=== PATIENT | male | born 1955 | race Caucasian/White ===

== ENCOUNTER 2016-09-02 12:07 | Emergency (ER) | payer SELFPAY ==
--- NOTE | 2016-09-02 12:19 | ER Document Report ---
ED Medical Screen (RME) - General Stated Complaint: ABNORMAL LABS Notes: Patient states he was seen at [facility] on Thursday for a fever. Had lab work drawn yesterday, was called this morning and told to come to the emergency room. Patient denies knowing what labs were. Denies other symptoms than the fever. Fever is gone now, patient has no complaints. I have greeted and performed a rapid initial assessment of this patient. A comprehensive ED assessment and evaluation of the patient, analysis of test results and completion of the medical decision making process will be conducted by additional ED providers. - Related Data Allergies/Adverse Reactions: No Known Allergies Allergy (Unverified 09/02/16 12:17) Physical Exam - Vital signs Vitals: Temp Pulse Resp BP Pulse Ox 98.7 F 79 16 126/77 H 97 09/02/16 12:11 09/02/16 12:11 09/02/16 12:11 09/02/16 12:11 09/02/16 12:11 - Cardiovascular Rhythm: Regular Heart sounds: Normal auscultation Course - Vital Signs Vital signs: Temp Pulse Resp BP Pulse Ox 98.7 F 79 16 126/77 H 97 09/02/16 12:11 09/02/16 12:11 09/02/16 12:11 09/02/16 12:11 09/02/16 12:11
--- NOTE | 2016-09-02 12:52 | ER Document Report ---
HPI - HPI Patient complains to provider of: abnormal lab work Onset: Other - Thursday Pain Level: 0 Context: 61-year-old male sent by [facility] because of lab work that was drawn at the office yesterday. He received a call but said they couldn't take care of him there because of abnormal lab work but they did not share the results with him. We will will call [facility] to find out what this is concerning. The patient's chief complaint is intermittent fever since Thursday the . He has a history of smoking and hemorrhoids. No surgeries. Review of systems is completely negative except for temperature of 101 yesterday. No travel outside the [place]. No known tick bite. Daily 10 beers for 5 years. Associated Symptoms: None Exacerbated by: Denies Relieved by: Denies Similar symptoms previously: No Recently seen / treated by doctor: Yes - ROS ROS below otherwise negative: Yes Systems Reviewed and Negative: Yes All other systems reviewed and negative - DERM Skin Color: Normal Past Medical History - General Information source: Patient - Social History Smoking Status: Current Every Day Smoker Chew tobacco use (# tins/day): No Frequency of alcohol use: Heavy Drug Abuse: None Lives with: Family Family History: Reviewed & Not Pertinent Patient has suicidal ideation: No Patient has homicidal ideation: No Renal/ Medical History: Denies: Hx Peritoneal Dialysis GI Medical History: Reports: Other - hemorrhoids Surgical Hx: Negative Vertical Provider Document - CONSTITUTIONAL Agree With Documented VS: Yes Exam Limitations: No Limitations - INFECTION CONTROL TRAVEL OUTSIDE OF THE [place] IN LAST 30 DAYS: No - HEENT HEENT: Atraumatic, Normocephalic, Pharyngeal Erythema. negative: Conjuctival Injection - NECK Neck: Supple - RESPIRATORY Respiratory: Breath Sounds Normal, No Respiratory Distress O2 Sat by Pulse Oximetry: 97 - CARDIOVASCULAR Cardiovascular: Regular Rate, Regular Rhythm - GI/ABDOMEN Gastrointestinal: Abdomen Soft, Abdomen Non-Tender, No Organomegaly - BACK Back: Normal Inspection - MUSCULOSKELETAL/EXTREMETIES Musculoskeletal/Extremeties: YANNICK MITCHELL - NEURO Level of Consciousness: Awake, Alert - DERM Integumentary: Warm, Dry Course - Re-evaluation Re-evalutation: 09/02/16 13:16 Labs sent from [facility] with a white count of 74.6 and the lab already called for 75,000 white count here in the emergency department as well. Pending lab results and I told the patient about this getting a chest x-ray and will refer to a oncologist. 09/02/16 13:51 no mediastinal mass 09/02/16 14:[address] 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 If you do not receive a survey, then you can go to the [facility] website, [email or web address] and place your comments about your very good care. Thank you very much. It was a pleasure being your medical provider today. Prescriptions: Levofloxacin [Levaquin 500 mg Tablet] 500 mg PO DAILY #9 tablet Referrals: GUY CHING MD [ACTIVE STAFF] - 09/03/16 10:00 am
[2016-09-02 12:59] LABS: APPEARANCE,URINE SLIGHTLY-CLOUDY; BILIRUBIN,URINE NEGATIVE (NEGATIVE); GLUCOSE, URINE NEGATIVE (NEGATIVE); KETONES,URINE NEGATIVE (NEGATIVE); LEUKOCYTE ESTERASE,URINE NEGATIVE (NEGATIVE); NITRITE,URINE NEGATIVE (NEGATIVE); PROTEIN,URINE 30 mg/dL (NEGATIVE); URINE SPECIFIC GRAVITY 1.013; UROBILINOGEN,URINE NEGATIVE mg/dL (<2.0)
[2016-09-02 13:06] LABS: HEMATOCRIT 34.9 % (37.9-51.0); HEMOGLOBIN 11.2 g/dL (13.5-17.0); HGB HCT DIFFERENCE -1.3; MEAN CORPUSCULAR HEMOGLOBIN 27.3 pg (27.0-33.4); MEAN CORPUSCULAR VOLUME 85 fl (80-97); RED CELL DISTRIBUTION WIDTH 14.3 % (11.5-14.0)
[2016-09-02 13:17] LABS: ALANINE AMINOTRANSFERASE 42 U/L (21-72); ALBUMIN 3.6 g/dL (3.5-5.0); ALKALINE PHOSPHATASE 63 U/L (38-126); ANION GAP 12 (5-19); ASPARTATE AMINO TRANSFERASE 29 U/L (17-59); BILIRUBIN,DIRECT 0.2 mg/dL (0.0-0.4); BILIRUBIN,TOTAL 0.7 mg/dL (0.2-1.3); BLOOD UREA NITROGEN 32 mg/dL (7-20); CALCIUM 9.2 mg/dL (8.4-10.2); CARBON DIOXIDE 27 mmol/L (22-30); CHLORIDE 98 mmol/L (98-107); CREATININE RESULT 1.79 mg/dL (0.52-1.25); GLUCOSE 111 mg/dL (75-110); LIPASE 272.5 U/L (23-300); POTASSIUM 4.3 mmol/L (3.6-5.0); SODIUM 137.3 mmol/L (137-145); TOTAL PROTEIN 6.2 g/dL (6.3-8.2)
[2016-09-02 13:24] LABS: WHITE BLOOD COUNT 78.3 10^3/uL (4.0-10.5)
[2016-09-02 13:26] LABS: BASOPHILS % (MANUAL) 0 % (0-2); EOSINOPHILS % (MANUAL) 0 % (0-6); LYMPHOCYTES % (MANUAL) 87 % (13-45); TOTAL CELLS COUNTED 100
[2016-09-02 13:33] LABS: HYPOCHROMASIA SLIGHT; SMUDGE CELLS PRESENT
[2016-09-02] MEDS ORDERED: LEVOFLOXACIN 500 MG TABLET PO ONE (14:08)
[2016-09-02 14:17] VITALS: BP 124/86
== END 2016-09-02 14:33 | disposition home or self-care (01) ==
LOC: ER 12:07
DX: C95.10 Chronic leukemia of unspecified cell type not having achieved remission (principal); R50.9 Fever, unspecified; F17.200 Nicotine dependence, unspecified, uncomplicated
CPT/HCPCS: 36415; 71020; 80053; 81001; 83690; 85025; 99283

== ENCOUNTER → 2016-09-16 | Outpatient (CLI) | payer SELFPAY | LOC: RAD 12:24 | PROVIDERS: ATTEND Internal Medicine Medical Oncology | DX: D72.828 Other elevated white blood cell count (principal); R79.89 Other specified abnormal findings of blood chemistry; R16.1 Splenomegaly, not elsewhere classified | CPT/HCPCS: 71260; 74160 ==

== ENCOUNTER 2018-05-29 13:00 | Emergency (ER) | payer SELFPAY ==
--- NOTE | 2018-05-29 13:13 | ER Document Report ---
ED Medical Screen (RME) - General Chief Complaint: Skin Problem Stated Complaint: ABSCESS/LEFT ARM PIT Time Seen by Provider: 05/29/18 13:10 Mode of Arrival: Ambulatory Information source: Patient TRAVEL OUTSIDE OF THE [place] IN LAST 30 DAYS: No - HPI Patient complains to provider of: chest mass Onset: Other - pt with c/o chest mass that has been increasing in size for the past few months. Also, intermittent abd pain - Related Data Allergies/Adverse Reactions: No Known Allergies Allergy (Verified 05/29/18 13:01) Past Medical History Renal/ Medical History: Denies: Hx Peritoneal Dialysis Physical Exam - Vital signs Vitals: Temp Pulse Resp BP Pulse Ox 98.7 F 101 H 16 148/88 H 97 05/29/18 13:03 05/29/18 13:03 05/29/18 13:03 05/29/18 13:03 05/29/18 13:03 Course - Vital Signs Vital signs: Temp Pulse Resp BP Pulse Ox 98.7 F 101 H 16 148/88 H 97 05/29/18 13:03 05/29/18 13:03 05/29/18 13:03 05/29/18 13:03 05/29/18 13:03 Doctor's Discharge - Discharge Referrals: GUY CHING MD [Primary Care Provider] - Follow up as needed
[2018-05-29 14:04] LABS: ABSOLUTE LYMPHOCYTES (AUTO) 1.3 10^3/uL (0.5-4.7); ABSOLUTE MONOCYTES (AUTO) 0.6 10^3/uL (0.1-1.4); ABSOLUTE NEUT (AUTO) 7.2 10^3/uL (1.7-8.2); APPEARANCE,URINE CLEAR; BASOPHILS % (AUTO) 0.5 % (0-2); BILIRUBIN,URINE NEGATIVE (NEGATIVE); COLOR,URINE AMBER; EOSINOPHILS % (AUTO) 0.2 % (0-6); GLUCOSE, URINE NEGATIVE (NEGATIVE); HEMATOCRIT 36.5 % (37.9-51.0); HEMOGLOBIN 12.2 g/dL (13.5-17.0); KETONES,URINE NEGATIVE (NEGATIVE); LEUKOCYTE ESTERASE,URINE NEGATIVE (NEGATIVE); LYMPHOCYTES % (AUTO) 14.4 % (13-45); MEAN CORPUSCULAR HEMOGLOBIN 27.2 pg (27.0-33.4); MEAN CORPUSCULAR HGB CONC 33.6 g/dL (32.0-36.0); MEAN CORPUSCULAR VOLUME 81 fl (80-97); MONOCYTES % (AUTO) 6.4 % (3-13); NITRITE,URINE NEGATIVE (NEGATIVE); PLATELET COUNT 210 10^3/uL (150-450); PROTEIN,URINE 30 mg/dL (NEGATIVE); RED BLOOD COUNT 4.51 10^6/uL (4.35-5.55); RED CELL DISTRIBUTION WIDTH 13.9 % (11.5-14.0); SEGMENTED NEUTROPHILS % (AUTO) 78.5 % (42-78); TOTAL CELLS COUNTED % (AUTO) 100 %; WHITE BLOOD COUNT 9.2 10^3/uL (4.0-10.5)
[2018-05-29 14:17] LABS: ALANINE AMINOTRANSFERASE 145 U/L (21-72); ALBUMIN 3.8 g/dL (3.5-5.0); ALKALINE PHOSPHATASE 324 U/L (38-126); ANION GAP 9 (5-19); ASPARTATE AMINO TRANSFERASE 157 U/L (17-59); BILIRUBIN,DIRECT 0.5 mg/dL (0.0-0.4); BILIRUBIN,TOTAL 0.7 mg/dL (0.2-1.3); BLOOD UREA NITROGEN 21 mg/dL (7-20); CALCIUM 9.5 mg/dL (8.4-10.2); CARBON DIOXIDE 28 mmol/L (22-30); CHLORIDE 97 mmol/L (98-107); GLUCOSE 111 mg/dL (75-110); POTASSIUM 4.7 mmol/L (3.6-5.0); SODIUM 134.2 mmol/L (137-145); TOTAL PROTEIN 6.3 g/dL (6.3-8.2)
--- NOTE | 2018-05-29 15:33 | RADIOLOGY REPORT (SQ) ---
EXAM DESCRIPTION: CT CHEST WITH; CT ABD/PELVIS WITH IV ONLY COMPLETED DATE/TIME: 05/29/2018 3:18 pm REASON FOR STUDY: chest mass; epigastric pain COMPARISON: 12/15/2019 CONTRAST TYPE AND DOSE: contrast/concentration: Isovue 350.00 mg/ml; Total Contrast Delivered: 70.0 ml; Total Saline Delivered: 56.0 ml RENAL FUNCTION: GFR > 60. TECHNIQUE: CT scan of the chest performed using helical scanning technique with dynamic intravenous contrast injection. Images reviewed with lung, soft tissue and bone windows. Reconstructed coronal a nd sagittal MPR images reviewed. All images stored on PACS. CT scan of the abdomen and pelvis performed with intravenous and without oral contrastusing helical s rebekah technique with dynamic intravenous contrast injection. Images reviewed with lung, soft tissu e and bone windows. Reconstructed coronal and sagittal MPR images reviewed. Delayed images for eval uation of the urinary system also acquired and evaluated. All images stored on PACS. All CT scanners at this facility use dose modulation, iterative reconstruction, and/or weight based d osing when appropriate to reduce radiation dose to as low as reasonably achievable (ALARA). [facility]: Dose Right [facility]: CareDose [facility]: Dose Right [facility]: Teradose 4D [facility]: Smart Technologies RADIATION DOSE: CT Rad equipment meets quality standard of care and radiation dose reduction techniq ues were employed. CTDIvol: 5.4 - 6.4 mGy. DLP: 744 mGy-cm. . LIMITATIONS: None. FINDINGS: CHEST: LUNGS AND PLEURA: Numerous scattered pulmonary nodules throughout the bilateral lung villareal consisten t with metastatic disease. No pleural effusion. HILAR AND MEDIASTINAL STRUCTURES: Small mediastinal nodes. HEART AND VASCULAR STRUCTURES: Normal heart. No evidence of aortic aneurysm or dissection. Pulmonar y arteries poorly assessed. HARDWARE: None. THYROID AND OTHER SOFT TISSUES: Thyroid unremarkable. Extensive mass along the upper left chest wall involving the axilla and extending supraclavicular and infraclavicular. Largest discrete portion of the mass is 11 cm with numerous adjacent probable enlarged lymph nodes regionally. Marked deformity of the chest wall results. 1.4 cm short axis right axillary lymph node. BONES: No significant finding. OTHER: No other significant finding. ABDOMEN AND PELVIS: LIVER: Numerous low density masses throughout the liver with confluent low density throughout the lat eral segment left lobe. Consistent with widespread liver metastatic disease. Spleen enlarged, 15 cm craniocaudal without focal mass. SPLEEN: As above. PANCREAS: No masses. No significant calcifications. No adjacent inflammation or peripancreatic fluid collections. Pancreatic duct not dilated. GALLBLADDER: No identified stones by CT criteria. No inflammatory changes to suggest cholecystitis. ADRENAL GLANDS: No significant masses or asymmetry. RIGHT KIDNEY AND URETER: No solid masses. No significant calcification. No hydronephrosis or hydroure ter. LEFT KIDNEY AND URETER: No solid masses. No significant calcification. No hydronephrosis or hydrouret er. AORTA AND VESSELS: No aneurysm. No dissection. Renal arteries, SMA, celiac without stenosis. RETROPERITONEUM: Retroperitoneal adenopathy with nodes measuring up to 2 cm in short axis at least. BOWEL AND PERITONEAL CAVITY: No overt bowel pathology. Small mesenteric nodes. Trace ascites in the pelvis. APPENDIX: Normal. ABDOMINAL WALL: No masses. No hernias. PELVIS: Prostate enlargement. Bladder unremarkable. BONES: No worrisome lesions detected. OTHER: No other significant finding. IMPRESSION: 1. Bulky abnormal soft tissue in the left upper chest wall and axilla with regional ext ension as above. Consistent with malignancy. 2. Numerous pulmonary nodules consistent with metastat ic disease. 3. Numerous liver lesions are consistent with metastases. 4. Retroperitoneal adenopath y. 5. Other findings as above. TECHNICAL DOCUMENTATION: JOB ID: [id number] Quality ID # [id number]: Final reports with documentation of one or more dose reduction techniques (e.g., Au tomated exposure control, adjustment of the mA and/or kV according to patient size, use of iterative reconstruction technique) 2010 [employer]- All Rights Reserved Reading location - IP/workstation name: [email or web address]
--- NOTE | 2018-05-29 18:08 | ER Document Report ---
ED General - General Chief Complaint: Skin Problem Stated Complaint: ABSCESS/LEFT ARM PIT Time Seen by Provider: 05/29/18 13:10 Mode of Arrival: Ambulatory TRAVEL OUTSIDE OF THE [place] IN LAST 30 DAYS: No - HPI Patient complains to provider of: Epigastric abdominal pain left chest wall mass Notes: Patient coming in for evaluation of epigastric dental pain ongoing for the last few days. Patient states he does have history of smoking and drinking alcohol however is to not drink any alcohol in quite a few months. Patient denies any nausea vomiting fevers chills or any diarrhea. Patient also has a large obvious left chest wall mass. Patient states been present for approximately 3 months and continues to grow. 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 Patient otherwise was to be no obvious distress. - Related Data Allergies/Adverse Reactions: No Known Allergies Allergy (Verified 05/29/18 13:16) Past Medical History - General Information source: Patient - Social History Smoking Status: Current Every Day Smoker Chew tobacco use (# tins/day): No Frequency of alcohol use: None Drug Abuse: None Family History: Reviewed & Not Pertinent Patient has suicidal ideation: No Patient has homicidal ideation: No Renal/ Medical History: Denies: Hx Peritoneal Dialysis Review of Systems - Review of Systems Constitutional: No symptoms reported EENT: No symptoms reported Cardiovascular: Other - Chest wall mass Respiratory: No symptoms reported Gastrointestinal: Abdominal pain - Epigastric abdominal pain Genitourinary: No symptoms reported Male Genitourinary: No symptoms reported Musculoskeletal: No symptoms reported Skin: No symptoms reported Hematologic/Lymphatic: No symptoms reported Neurological/Psychological: No symptoms reported Physical Exam - Vital signs Vitals: Temp Pulse Resp BP Pulse Ox 98.7 F 101 H 16 148/88 H 97 05/29/18 13:03 05/29/18 13:03 05/29/18 13:03 05/29/18 13:03 05/29/18 13:03 Interpretation: Normal - General General appearance: Appears well, Alert - HEENT Head: Normocephalic, Atraumatic Eyes: Normal Pupils: PERRL - Respiratory Respiratory status: No respiratory distress Chest status: Other - Patient with a large solid chest wall mass of the left upper chest wall from the left sternal border going into the axilla the mass does have an area that is discolored with some ecchymosis on the most lateral portion the masses not warm no erythema no signs of drainage and is signs of abscess formation obvious lymphadenopathy in left axilla prominence of the vasculature across the chest wall slight swelling of the left arm compared to the right Breath sounds: Normal Chest palpation: Normal - Cardiovascular Rhythm: Regular Heart sounds: Normal auscultation Murmur: No - Abdominal Inspection: Normal Distension: No distension Bowel sounds: Normal Tenderness: Nontender Organomegaly: No organomegaly - Back Back: Normal, Nontender - Extremities General upper extremity: Normal inspection, Nontender, Normal color, Normal ROM , Normal temperature General lower extremity: Normal inspection, Nontender, Normal color, Normal ROM , Normal temperature, Normal weight bearing. No: Fernando's sign - Neurological Neuro grossly intact: Yes Cognition: Normal Orientation: AAOx4 Aditi Coma Scale Eye Opening: Spontaneous [place] Coma Scale Verbal: Oriented [place] Coma Scale Motor: Obeys Commands Aditi Coma Scale Total: 15 Speech: Normal Motor strength normal: LUE, RUE, LLE, RLE Sensory: Normal - Psychological Associated symptoms: Normal affect, Normal mood - Skin Skin Temperature: Warm Skin Moisture: Dry Skin Color: Normal Course - Re-evaluation Re-evalutation: 05/29/18 18:57 Laboratory studies otherwise unremarkable except for slight elevation the patient's LFTs. CAT scans of the chest abdomen show signs of diffuse metastatic disease with a large mass in the left chest wall no signs of abscess formation. Patient does have multiple lesions within the long also multiple lesions within his liver roots would explain the liver function test elevation. Patient CT scans were reviewed at bedside with the patient. I did call the oncologist call or contact centre operator Dr. Wadsworth who agrees with plan for discharge follow-up with social work team to help establish outpatient care. Patient otherwise looks to be in no obvious distress. Patient will be treated with Ultram for pain also omeprazole for epigastric pain is possible underlying gastritis. Patient will be discharged home - Vital Signs Vital signs: Temp Pulse Resp BP Pulse Ox 98.7 F 101 H 16 148/88 H 97 05/29/18 13:03 05/29/18 13:03 05/29/18 13:03 05/29/18 13:03 05/29/18 13:03 - Laboratory Result Diagrams: 05/29/18 13:33 05/29/18 13:33 Laboratory results interpreted by me: 05/29/18 05/29/18 05/29/18 13:33 13:33 13:33 Hgb 12.2 L Hct 36.5 L Seg Neutrophils % 78.5 H Sodium 134.2 L Chloride 97 L BUN 21 H Glucose 111 H Direct Bilirubin 0.5 H AST 157 H ALT 145 H Alkaline Phosphatase 324 H Urine Protein 30 H Urine Urobilinogen 2.0 H Discharge - Discharge Clinical Impression: Chest wall mass, Epigastric abdominal pain Condition: Good Disposition: HOME, SELF-CARE Instructions: Abdominal Pain ([facility]), Gastritis ([facility]), Growth or Mass, Pending Workup ([facility]) Additional Instructions: Please make sure we had good contact information so that we can help you establish follow-up for further evaluation of your left chest wall mass. Please take medications as prescribed. Return to ER symptoms worsen Your CAT scan today shows a mass in the left upper chest wall is concerning for malignancy and that she also have multiple other spots within your liver and spleen are also consistent with possible malignancy. It is very important to follow-up with a doctor provided that she can start the workup to rule in or rule out cancer and also to achieve further treatment. I believe the epigastric abdominal pain that you are experiencing is due to some of the masses that we see on your CAT scan recommend drinking less alcohol and taking omeprazole in case he also have underlying gastritis or inflammation of the stomach. Prescriptions: Omeprazole 20 mg PO DAILY #30 tab. Tramadol HCl [Ultram 50 mg Tablet] 50 mg PO ASDIR PRN #30 tablet PRN Reason: Referrals: CHON YORK MD [ACTIVE STAFF] - Follow up as needed
[2018-05-29] MEDS ORDERED: TRAMADOL HCL 50 MG TABLET PO ONE (18:09)
[2018-05-29 18:56] VITALS: BP 138/83
== END 2018-05-29 18:56 | disposition home or self-care (01) ==
LOC: ER 13:00
DX: R22.2 Localized swelling, mass and lump, trunk (principal); R10.13 Epigastric pain; K08.89 Other specified disorders of teeth and supporting structures; F17.200 Nicotine dependence, unspecified, uncomplicated
CPT/HCPCS: 36415; 71260; 74177; 80053; 81001; 83690; 85025; 99284

== ENCOUNTER 2018-06-07 16:26 | Inpatient (IN) | payer OTHER ==
[2018-06-07] MEDS ORDERED: ASPIRIN 81 MG TABLET, CHEWABLE PO ONE (17:45)
[2018-06-07 18:09] LABS: HEMATOCRIT 38.5 % (37.9-51.0); HEMOGLOBIN 12.8 g/dL (13.5-17.0); MEAN CORPUSCULAR HEMOGLOBIN 27.1 pg (27.0-33.4); MEAN CORPUSCULAR HGB CONC 33.2 g/dL (32.0-36.0); MEAN CORPUSCULAR VOLUME 82 fl (80-97); PLATELET COUNT 222 10^3/uL (150-450); RED BLOOD COUNT 4.72 10^6/uL (4.35-5.55); RED CELL DISTRIBUTION WIDTH 14.6 % (11.5-14.0); WHITE BLOOD COUNT 24.5 10^3/uL (4.0-10.5)
[2018-06-07 18:22] LABS: ALANINE AMINOTRANSFERASE 267 U/L (21-72); ALBUMIN 3.7 g/dL (3.5-5.0); ALKALINE PHOSPHATASE 799 U/L (38-126); BILIRUBIN,DIRECT 3.6 mg/dL (0.0-0.4); BILIRUBIN,TOTAL 4.1 mg/dL (0.2-1.3); BLOOD UREA NITROGEN 56 mg/dL (7-20); CALCIUM 8.8 mg/dL (8.4-10.2); CREATINE KINASE 150 U/L (55-170); GLUCOSE 73 mg/dL (75-110); LIPASE 316.2 U/L (23-300); TOTAL PROTEIN 6.3 g/dL (6.3-8.2)
[2018-06-07 18:25] LABS: ABSOLUTE LYMPHOCYTES# (MANUAL) 5.9 10^3/uL (0.5-4.7); ABSOLUTE MONOCYTES # (MANUAL) 2.9 10^3/uL (0.1-1.4); ABSOLUTE NEUTROPHILS# (MANUAL) 15.7 10^3/uL (1.7-8.2); BASOPHILS % (MANUAL) 0 % (0-2); EOSINOPHILS % (MANUAL) 0 % (0-6); LYMPHOCYTES % (MANUAL) 24 % (13-45); MONOCYTES % (MANUAL) 12 % (3-13); SEGMENTED NEUTROPHILS % (MAN) 64 % (42-78); TOTAL CELLS COUNTED 100
[2018-06-07 18:26] LABS: ANISOCYTOSIS SLIGHT; HYPOCHROMASIA SLIGHT; PLATELET COMMENT ADEQUATE
[2018-06-07 18:27] LABS: CARBON DIOXIDE 15 mmol/L (22-30); CHLORIDE 77 mmol/L (98-107)
--- NOTE | 2018-06-07 18:27 | RADIOLOGY REPORT (SQ) ---
EXAM DESCRIPTION: CHEST SINGLE VIEW COMPLETED DATE/TIME: 06/07/2018 6:10 pm REASON FOR STUDY: upper back pain COMPARISON: Chest CT 05/29/2018 and chest radiograph 09/02/2016 EXAM PARAMETERS: NUMBER OF VIEWS: One view. TECHNIQUE: Single frontal radiographic view of the chest acquired. RADIATION DOSE: NA LIMITATIONS: None. FINDINGS: LUNGS AND PLEURA: Re- demonstration of multiple rounded nodular opacity seen throughout th e lungs. No pneumothorax or pleural effusion. MEDIASTINUM AND HILAR STRUCTURES: No masses. Contour normal. HEART AND VASCULAR STRUCTURES: Heart normal in size. Normal vasculature. BONES: No acute findings. HARDWARE: None in the chest. OTHER: No other significant finding. IMPRESSION: Essentially stable imaging appearance of the chest demonstrating multiple nodular densit ies bilaterally, most likely on the basis of metastatic disease. TECHNICAL DOCUMENTATION: JOB ID: [id number] [employer]- All Rights Reserved Reading location - IP/workstation name: [email or web address]
[2018-06-07 18:30] LABS: ANION GAP 25 (5-19); ASPARTATE AMINO TRANSFERASE 760 U/L (17-59)
[2018-06-07 18:34] LABS: CREATINE KINASE MB 4.49 ng/mL (<4.55); TROPONIN I 0.018 ng/mL
[2018-06-07 18:36] LABS: POTASSIUM 6.9 mmol/L (3.6-5.0); SODIUM 116.8 mmol/L (137-145)
[2018-06-07] MEDS ORDERED: NORMAL SALINE 1000 ML 1,000 ML IV ONE ×2 (18:45→20:52)
[2018-06-07] MEDS ORDERED: SODIUM BICARBONATE 8.4% INJ 50 MEQ/50 ML DISP.SYRIN IV ONE (18:46)
[2018-06-07] MEDS ORDERED: DEXTROSE 50%-WATER 25 GM/50 ML DISP.SYRIN IV ONE (18:46)
[2018-06-07] MEDS ORDERED: CALCIUM GLUCONATE 1000 MG/10 ML INJ IV ONE (18:46)
[2018-06-07] MEDS ORDERED: INSULIN REG, HUMAN 100 UNIT/ML 3 ML VIAL (PYX) SUBCUT ONE (18:46)
--- NOTE | 2018-06-07 19:30 | ER Document Report ---
ED General - General Information source: Patient TRAVEL OUTSIDE OF THE [place] IN LAST 30 DAYS: No <ALBA CISNEROS - Last Filed: 06/07/18 23:29> <MIGUEL GARCIA - Last Filed: 06/07/18 23:36> - General Chief Complaint: General Weakness Stated Complaint: WEAKNESS Time Seen by Provider: 06/07/18 17:43 Notes: 63 year old male that presents to the emergency department today with complaints of generalized weakness with 3 associated falls over the last two days. Patient states he hit his head during the first fall he thinks. Patient has a prior diagnosis of CLL and during a visit to this ED approximately 10 days ago for abdominal pain was found to have metastatic disease to the liver and lungs. Patient states that he followed up with Dr. Bright (oncology) who is going to do a biopsy after . Patient states since that appointment he has developed right eye weakness as it is closed shut. Patient also has a large mass in his left anterior chest. Family bedside states patient had increased confusion. (ALBA CISNEROS) - Related Data Allergies/Adverse Reactions: No Known Allergies Allergy (Verified 05/29/18 13:16) Past Medical History - General Information source: Patient - Social History Smoking Status: Current Every Day Smoker Cigarette use (# per day): No - Frequency of alcohol use: None Drug Abuse: None Lives with: Family Family History: Reviewed & Not Pertinent Patient has suicidal ideation: No Patient has homicidal ideation: No Malignancy Medical History: Reports Hx Leukemia - CLL <ALBA CISNEROS - Last Filed: 06/07/18 23:29> Review of Systems - Review of Systems Constitutional: See HPI, Weakness - generalized EENT: See HPI, Other - right eye weakness, impaired vision in right eye which is chronic for years Cardiovascular: No symptoms reported Respiratory: No symptoms reported Gastrointestinal: No symptoms reported Genitourinary: No symptoms reported Male Genitourinary: No symptoms reported Musculoskeletal: See HPI, Other - left chest wall mass Skin: No symptoms reported Hematologic/Lymphatic: No symptoms reported Neurological/Psychological: See HPI, Confusion -: Yes All other systems reviewed and negative <ALBA CINSEROS - Last Filed: 06/07/18 23:29> Physical Exam <ALBA CISNEROS - Last Filed: 06/07/18 23:29> - Vital signs Vitals: Temp Pulse Resp BP Pulse Ox 97.7 F 93 18 135/88 H 98 06/07/18 16:41 06/07/18 16:41 06/07/18 16:41 06/07/18 16:41 06/07/18 16:41 - Notes Notes: PHYSICAL EXAM GENERAL: Alert. No acute distress. HEAD: Normocephalic, atraumatic. EYES: Pupils equal, round, and reactive to light. Left eye tracks finger appropriately, right eye follows left eye slowly, able to see light out of right eye but is unable to see anything else including finger counting. Right lens appears opacified. ENT: Oral mucosa moist, tongue midline. NECK: Full range of motion. Supple. Trachea midline. LUNGS: Clear to auscultation bilaterally, no wheezes, rales, or rhonchi. No respiratory distress. HEART: Tachycardic, regular rhythm. No murmurs, gallops, or rubs. Capillary refill in the fingers on the left 6 seconds. Left upper extremity is cool but not cold to the touch. Faint but present radial pulse on the left. ABDOMEN: Hepatomegaly with mild tenderness with palpation. Bowel sounds present in all 4 quadrants. No guarding, rigidity, or rebound. EXTREMITIES: Moves all 4 extremities spontaneously. Left upper extremity edema. NEUROLOGICAL: Alert and oriented x3. Slightly slurred speech. Right sided facial droop, right eyelid weakness - cannot open right eye. PSYCH: Inappropriately calm. SKIN: Large mass to left anterior chest wall and left axilla. (ALBA CISNEROS) Course - Laboratory Result Diagrams: 06/07/18 17:55 06/07/18 21:45 <ALBA CISNEROS - Last Filed: 06/07/18 23:29> - Laboratory Result Diagrams: 06/07/18 17:55 06/07/18 21:45 <MIGUEL GARCIA - Last Filed: 06/07/18 23:36> - Re-evaluation Re-evalutation: 06/07/18 20:55 CBC shows leukocytosis at 24.5, mild anemia with hemoglobin 12.8, platelets are normal, chemistries show acutely low sodium at 116.8, potassium is markedly high at 6.9, there is an anion gap at 25, acute renal failure with a BUN of 56 and a creatinine of 2.01, total and direct bilirubin are both elevated at 4.1 and 3.6 respectively, he does have new liver failure as well AST is 760, ALT is 267, alkaline phosphatase is 799, troponin is normal, lipase mildly elevated at 316. Chest x-ray shows essentially stable imaging appearance of chest wall demonstrating multiple nodular densities bilaterally likely on the basis of m etastatic disease, CT scan of the head was ordered given the new right-sided facial droop, urinalysis is pending. CT scan of the head was negative, this was done without contrast as his creatinine is 2. Patient's elevated potassium was treated with fluids, calcium, bicarb, glucose, insulin. Nunn catheter was placed, urine is dark. 06/07/18 23:[address] Garcia who was concerned by the possibility of obstruction and cholecystitis or mass causing the leukocytosis and elevated LFTs, ultrasound of the right upper quadrant was obtained and it reveals trace pericholecystic fluid but no true evidence of infection or obstruction. Discussed with surgeon who does not feel this represents infection at this time but rather feels that the elevated LFTs are coming from the tumor burden throughout the liver. Does not feel anything would be amenable to biliary stenting at this time. Dr. Little the surgeon is willing to assist in obtaining a biopsy if necessary but will defer to Dr. Garcia or Dr. García for their preferred consult in obtaining this whether through radiology or surgical list. I did discuss this case with Dr. Keane the pathologist who states that the soonest that a biopsy would be able to be done and begin processing would be Thursday and they would likely not have the results until . Dr. Squires does not feel that this biopsy could be done any sooner at another facility. Discussed the case again with Dr. Garcia and at the improving anion gap and BUN and creatinine as well as improving potassium, he agrees to accept the patient to his service in the ICU. (MIGUEL GARCIA) - Vital Signs Vital signs: Temp Pulse Resp BP Pulse Ox 97.7 F 93 11 L 130/83 H 97 06/07/18 16:41 06/07/18 16:41 06/07/18 22:00 06/07/18 22:00 06/07/18 22:00 - Laboratory Laboratory results interpreted by me: 06/07/18 06/07/18 06/07/18 17:55 17:55 20:50 WBC 24.5 H Hgb 12.8 L RDW 14.6 H Abs Neuts (Manual) 15.7 H Abs Lymphs (Manual) 5.9 H Abs Monocytes (Manual) 2.9 H Sodium 116.8 L* Potassium 6.9 H* Chloride 77 L Carbon Dioxide 15 L Anion Gap 25 H BUN 56 H Creatinine 2.01 H Est GFR ( Amer) 41 L Est GFR (Non-Af Amer) 34 L Glucose 73 L Calcium Total Bilirubin 4.1 H Direct Bilirubin 3.6 H AST 760 H ALT 267 H Alkaline Phosphatase 799 H Lipase 316.2 H Urine Protein 30 H Urine Ketones 20 H Urine Blood SMALL H Urine Bilirubin SMALL H Urine Urobilinogen 2.0 H 06/07/18 21:45 WBC Hgb RDW Abs Neuts (Manual) Abs Lymphs (Manual) Abs Monocytes (Manual) Sodium 117.0 L* Potassium 6.0 H* Chloride 83 L Carbon Dioxide 17 L Anion Gap BUN 55 H Creatinine 1.59 H Est GFR ( Amer) 54 L Est GFR (Non-Af Amer) 44 L Glucose 54 L Calcium 8.1 L Total Bilirubin Direct Bilirubin AST ALT Alkaline Phosphatase Lipase Urine Protein Urine Ketones Urine Blood Urine Bilirubin Urine Urobilinogen - EKG Interpretation by Me Additional EKG results interpreted by me: 06/07/18 23:27 EKG shows sinus rhythm at a rate of 94, left anterior posterior fascicular block, slow R wave progression, no ST segment elevations or depressions, T wave inversions in aVL, right axis deviation per my interpretation. (MIGUEL GARCIA) Critical Care Note - Critical Care Note Total time excluding time spent on procedures (mins): 80 <MIGUEL GARCIA - Last Filed: 06/07/18 23:36> Discharge <ALBA CISNEROS - Last Filed: 06/07/18 23:29> - Discharge Admitting Provider: [place] Unit Admitted: ICU <MIGUEL GARCIA - Last Filed: 06/07/18 23:36> - Discharge Clinical Impression: Metastatic cancer, Hyperkalemia, Hyponatremia Renal failure, acute Qualifiers: Acute renal failure type: unspecified Qualified Code(s): N17.9 - Acute kidney failure, unspecified Liver failure, acute Qualifiers: Hepatic coma status: without hepatic coma Qualified Code(s): K72.00 - Acute and subacute hepatic failure without coma Condition: Critical Disposition: ADMITTED INPATIENT Scribe Attestation: 06/07/18 23:27 I personally performed the services described in the documentation, reviewed and edited the documentation which was dictated to the scribe in my presence, and it accurately records my words and actions. (MIGUEL GARCIA) Scribe Documentation - Scribe Written by Roxiibe:: Ben Curtis, 06/07/2018 194 acting as scribe for :: Karl <ALBA CISNEROS - Last Filed: 06/07/18 23:29>
--- NOTE | 2018-06-07 20:30 | RADIOLOGY REPORT (SQ) ---
EXAM DESCRIPTION: CT HEAD WITHOUT COMPLETED DATE/TIME: 06/07/2018 8:08 pm REASON FOR STUDY: AMS, right facial droop, metastatic cancer COMPARISON: None. TECHNIQUE: Axial images acquired through the brain without intravenous contrast. Images reviewed wi th bone, brain and subdural windows. Additional sagittal and coronal reconstructions were generated. Images stored on PACS. All CT scanners at this facility use dose modulation, iterative reconstruction, and/or weight based d osing when appropriate to reduce radiation dose to as low as reasonably achievable (ALARA). [facility]: Dose Right [facility]: CareDose [facility]: Dose Right [facility]: Teradose 4D [facility]: Smart [employer] RADIATION DOSE: CT Rad equipment meets quality standard of care and radiation dose reduction techniq ues were employed. CTDIvol: 53.2 mGy. DLP: 1044 mGy-cm. mGy. LIMITATIONS: None. FINDINGS: VENTRICLES: Normal size and contour. CEREBRUM: No masses. No hemorrhage. No midline shift. No evidence for acute infarction. Normal gra y/white matter differentiation. No areas of low density in the white matter. CEREBELLUM: No masses. No hemorrhage. No alteration of density. No evidence for acute infarction. EXTRAAXIAL SPACES: No fluid collections. No masses. ORBITS AND GLOBE: No intra- or extraconal masses. Normal contour of globe without masses. CALVARIUM: No fracture. PARANASAL SINUSES: Right posterior ethmoid and right sphenoid compartment opacification. SOFT TISSUES: No mass or hematoma. OTHER: No other significant finding. IMPRESSION: No evidence of parenchymal mass or mass effect. Incidental finding of spheno-ethmoid si nusitis. EVIDENCE OF ACUTE STROKE: NO. COMMENT: Quality ID # [id number]: Final reports with documentation of one or more dose reduction techniques (e.g., Automated exposure control, adjustment of the mA and/or kV according to patient size, use of iterative reconstruction technique) TECHNICAL DOCUMENTATION: JOB ID: [id number] [employer]- All Rights Reserved Reading location - IP/workstation name: [email or web address]
[2018-06-07 21:05] LABS: APPEARANCE,URINE SLIGHTLY-CLOUDY; BILIRUBIN,URINE SMALL (NEGATIVE); COLOR,URINE AMBER; GLUCOSE, URINE NEGATIVE (NEGATIVE); KETONES,URINE 20 mg/dL (NEGATIVE); LEUKOCYTE ESTERASE,URINE NEGATIVE (NEGATIVE); NITRITE,URINE NEGATIVE (NEGATIVE); PROTEIN,URINE 30 mg/dL (NEGATIVE); URINE SPECIFIC GRAVITY 1.015
[2018-06-07] MEDS ORDERED: HYDROMORPHONE HCL INJ/PF 2 MG/ML AMPULE IV ONE (21:18)
[2018-06-07] MEDS ORDERED: CEFTRIAXONE 1 GM/D5W RTU 1 GM/50 ML RTUPB IV ONE (22:02)
[2018-06-07 22:15] LABS: ANION GAP 17 (5-19); BLOOD UREA NITROGEN 55 mg/dL (7-20); CALCIUM 8.1 mg/dL (8.4-10.2); CARBON DIOXIDE 17 mmol/L (22-30); CHLORIDE 83 mmol/L (98-107); GLUCOSE 54 mg/dL (75-110)
--- NOTE | 2018-06-07 22:17 | RADIOLOGY REPORT (SQ) ---
EXAM DESCRIPTION: US ABDOMEN LIMITED COMPLETED DATE/TME: 06/07/2018 21:02 CLINICAL HISTORY: 63 years, Male, elevated LFTs, cherie for biliary obstruction COMPARISON: CT 05/29/2018. TECHNIQUE: Transverse and longitudinal transabdominal sonographic images of the abdomen/right upper quadrant. LIMITATIONS: None. FINDINGS: Diffusely heterogeneous echotexture to the liver with multiple poorly defined lesions consistent with metastatic disease, also described on CT. No definitive gallstones. There is layering sludge in the gallbladder lumen. No gallbladder wall thickening. Negative sonographic Melo sign. Equivocal/trace of pericholecystic fluid. CBD measures 4.6 mm. The visualized portions of the right kidney are unremarkable. Trace of ascites. Spleen is enlarged at 14 cm. The visualized pancreas and abdominal aorta are unremarkable. The visualized IVC is unremarkable. IMPRESSION: Diffusely heterogeneous echotexture to the liver with multiple poorly defined masses consistent with metastases, also seen on prior CT. Sludge in the gallbladder lumen. Equivocal/trace of pericholecystic fluid. Small volume of ascites. Splenomegaly at 14 cm copyright 2011 [employer]- All Rights Reserved
[2018-06-07] MEDS ORDERED: IPRATROPIUM/ALBUTEROL 0.5-2.5 MG/3 ML AMPUL NEB PRN (22:57)
[2018-06-07] MEDS ORDERED: MAGNESIUM HYDROXIDE SUSP 30 ML UDCUP PO PRN (22:57)
[2018-06-07] MEDS ORDERED: MAG HYDROX/AL HYDROX/SIMETH SUSP 30 ML UDCUP PO PRN (22:57)
[2018-06-07] MEDS ORDERED: DEXTROSE 40% GEL 15 GM TUBE PO PRN ×2 (23:06)
[2018-06-07] MEDS ORDERED: GLUCAGON,HUMAN RECOMB 1 MG INJ IM PRN (23:06)
[2018-06-07] MEDS ORDERED: DEXTROSE 50%-WATER 25 GM/50 ML DISP.SYRIN IV PRN ×2 (23:06)
--- NOTE | 2018-06-07 23:23 | EKG REPORT ---
SEVERITY:- ABNORMAL ECG - SINUS RHYTHM LEFT POSTERIOR FASCICULAR BLOCK LOW VOLTAGE WITH RIGHT AXIS DEVIATION BORDERLINE INFERIOR Q WAVES BORDERLINE R WAVE PROGRESSION, ANTERIOR LEADS : Confirmed by: Rachael Lees 07-Jun-2018 23:22:39
--- NOTE | 2018-06-08 01:21 | PDOC CONSULTATION ---
Consultation Consult Date: 06/08/18 - ed consult History of Present Illness Admission Date/PCP: 06/08/18 00:42 History of Present Illness: CARRILLO GELLER is a 63 year old male with recent hx of probable metastastatic cancer, unknown primary with multple abdominal organ masses in liver, spleen, chest, and large axillary mass. presents to er with weakness, and lethargy, rt sided facial weakness, and electrolyte abnormalities. brought in by family. Has seen an oncologist a couple of days ago and plans were being made for biopsy of left axillary mass pt presnets with elevated bilirubin and ultrasound in er documents small amt of pericholecystic fluid with normal size bile duct. surgical consult obtained for possible cholangitis . Past Medical History Malignancy Medical History: Reports: Leukemia - CLL Social History Lives with: Family Smoking Status: Current Every Day Smoker Family History Family History: Reviewed & Not Pertinent Parental Family History Reviewed: No - Noncontributory Children Family History Reviewed: Unknown - Noncontributory Sibling(s) Family History Reviewed.: Unknown - Noncontributory Medication/Allergy Home Medications: Omeprazole 20 mg PO DAILY #30 tab. 05/29/18 Tramadol HCl [Ultram 50 mg Tablet] 50 mg PO ASDIR PRN #30 tablet 05/29/18 Allergies/Adverse Reactions: No Known Allergies Allergy (Verified 05/29/18 13:16) Physical Exam Vital Signs: Temp Pulse Resp BP Pulse Ox 97.7 F 93 10 L 121/79 97 06/07/18 16:41 06/07/18 16:41 06/08/18 00:01 06/08/18 00:01 06/08/18 00:01 Intake & Output 06/06/18 06/07/18 06/08/18 06:59 06:59 06:59 Intake Total 2049 Balance 2049 Weight 61.689 kg General appearance: PRESENT: mild distress, thin Head exam: PRESENT: normocephalic Eye exam: PRESENT: conjunctiva pale, scleral icterus Mouth exam: PRESENT: other - Right lip droop Respiratory exam: PRESENT: other - Examination of his chest reveals a very large left axillary mass that extends onto the chest wall and down to the axilla with overlying lateralization of his subcutaneous vessels and a large darkish lowish color change to the kin on the lateral aspect of the chest wall that appears to be secondary to shunt subcutaneous tissue underneath the skin GI/Abdominal exam: PRESENT: other - Termination of the abdomen reveals a fullness throughout nontender no peritoneal signs Results Laboratory Results: 06/07/18 17:55 06/07/18 21:45 06/07/18 06/07/18 06/07/18 17:55 17:55 20:50 WBC 24.5 H RBC 4.72 Hgb 12.8 L Hct 38.5 MCV 82 MCH 27.1 MCHC 33.2 RDW 14.6 H Plt Count 222 Seg Neutrophils % Not Reportable Lymphocytes % Not Reportable Monocytes % Not Reportable Eosinophils % Not Reportable Basophils % Not Reportable Absolute Neutrophils Not Reportable Absolute Lymphocytes Not Reportable Absolute Monocytes Not Reportable Absolute Eosinophils Not Reportable Absolute Basophils Not Reportable Sodium 116.8 L* Potassium 6.9 H* Chloride 77 L Carbon Dioxide 15 L Anion Gap 25 H BUN 56 H Creatinine 2.01 H Est GFR ( Amer) 41 L Est GFR (Non-Af Amer) 34 L Glucose 73 L Calcium 8.8 Total Bilirubin 4.1 H AST 760 H ALT 267 H Alkaline Phosphatase 799 H Total Protein 6.3 Albumin 3.7 Lipase 316.2 H Urine Color SUSHANT Urine Appearance SLIGHTLY-CLOUDY Urine pH 5.0 Ur Specific Elizabeth 1.015 Urine Protein 30 H Urine Glucose (UA) NEGATIVE Urine Ketones 20 H Urine Blood SMALL H Urine Nitrite NEGATIVE Ur Leukocyte Esterase NEGATIVE Urine WBC (Auto) 2 Urine RBC (Auto) 3 06/07/18 21:45 WBC RBC Hgb Hct MCV MCH MCHC RDW Plt Count Seg Neutrophils % Lymphocytes % Monocytes % Eosinophils % Basophils % Absolute Neutrophils Absolute Lymphocytes Absolute Monocytes Absolute Eosinophils Absolute Basophils Sodium 117.0 L* Potassium 6.0 H* Chloride 83 L Carbon Dioxide 17 L Anion Gap 17 BUN 55 H Creatinine 1.59 H Est GFR ( Amer) 54 L Est GFR (Non-Af Amer) 44 L Glucose 54 L Calcium 8.1 L Total Bilirubin AST ALT Alkaline Phosphatase Total Protein Albumin Lipase Urine Color Urine Appearance Urine pH Ur Specific Elizabeth Urine Protein Urine Glucose (UA) Urine Ketones Urine Blood Urine Nitrite Ur Leukocyte Esterase Urine WBC (Auto) Urine RBC (Auto) 06/07/18 06/07/18 06/07/18 17:55 17:55 21:45 Creatine Kinase 150 CK-MB (CK-2) 4.49 Troponin I 0.018 0.018 Impressions: Chest X-Ray 06/07/18 17:45 IMPRESSION: Essentially stable imaging appearance of the chest demonstrating multiple nodular densities bilaterally, most likely on the basis of metastatic disease. Head CT 06/07/18 19:30 IMPRESSION: No evidence of parenchymal mass or mass effect. Incidental finding of spheno-ethmoid sinusitis. EVIDENCE OF ACUTE STROKE: NO. Abdomen Ultrasound 06/07/18 21:02 IMPRESSION: Diffusely heterogeneous echotexture to the liver with multiple poorly defined masses consistent with metastases, also seen on prior CT. Sludge in the gallbladder lumen. Equivocal/trace of pericholecystic fluid. Small volume of ascites. Splenomegaly at 14 cm copyright 2011 [employer]- All Rights Reserved Assessment & Plan - Diagnosis (1) Liver failure, acute Qualifiers: Hepatic coma status: without hepatic coma Qualified Code(s): K72.00 - Acute and subacute hepatic failure without coma - Plan Summary Plan Summary: Mr. Dasilva presents to the emergency room tonight brought in by his family is of increasing weakness lethargy with a right facial droop a diagnosis of metastatic cancer has been made by his oncologist a number of days ago workup is in progress. Essentially he had a CT scan done 10 days ago as an outpatient for large mass in his left axilla and increasing weakness. CT scan shows multiple metastatic deposits in his liver and spleen,pulmonary nodules large left axillary mass that extends up onto his left anterior superior chest wall. Presents to the emergency room tonight with increasing weakness noted to have a hyperkalemia, rising creatinine, rising liver function studies including alkaline phosphatase surgery was consulted by the emergency room physician for possible cholangitis because of the liver function studies, with a rising bilirubin and alkaline phosphatase a ultrasound was obtained which showed pericholecystic fluid. He also has an elevated white count. There was concern whether the patient could be cared for here or needed to be transferred to a higher level of care for possible endoscopic retrograde cholangiogram and possible stent placement because of the elevated bilirubin and alkaline phosphatase. Review of the CAT scan and liver function studies other labs, I feel that the patient could be cared for at this facility. I do not feel that he is suffering now from ascending cholangitis or a extrahepatic biliary obstruction, he does not have typical cholangitis symptoms he does not have high fever , no tachycardia no right upper quadrant pain. I feel that his elevated alkaline phosphatase elevated liver function studies are due to tumor burden within the liver. The patient needs a further workup of his tumor which includes a probable biopsy of the left axillary mass in order to obtain tissue diagnosis. According to the patient and his family his oncologist was in the process of setting up the biopsy. Recommendation, patient will be admitted to the medicine service for treatment of his electrolyte abnormalities. The patient needs a biopsy of that left axillary mass in order to obtain tissue diagnosis. Whether the patient undergo a to cut biopsy of the axillary mass versus an open biopsy is still in question. After consultation with the on-call pathologist it is decided that the biopsy should be put off until at least Thursday when the specimen can be processed. Surgery will continue to follow and could perform the biopsy should a request be made from the neurologist.
--- NOTE | 2018-06-08 01:41 | PDOC H&P ---
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 Patient saw Dr. Oates, initially was placed on Ultram with plans to follow-up after Natasha. 3 days ago the patient and sustained several falls without significant injury but has subsequently developed left arm edema and right eyelid closure. In the emergency room he is found to have an odd affect, generalized weakness, severe hyponatremia, acute renal failure, and cholestatic picture of LFTs. Ultrasound does not reveal biliary obstruction with a normal caliber common bile duct, head CT does not reveal acute stroke. He is started on normal saline and referred to the hospitalist for admission. Patient admits to poor p.o. intake with anorexia. Past Medical History Cardiac Medical History: Reports: None Pulmonary Medical History: Reports: None EENT Medical History: Reports: None Neurological Medical History: Reports: None Endocrine Medical History: Reports: None Renal/ Medical History: Reports: None Malignancy Medical History: Reports: Leukemia - CLL GI Medical History: Reports: None Musculoskeltal Medical History: Reports: None Skin Medical History: Reports: None Psychiatric Medical History: Reports: Tobacco Dependency Traumatic Medical History: Reports: None Hematology: Reports: None Infectious Medical History: Reports: None Past Surgical History Past Surgical History: Reports: None Social History Lives with: Family Smoking Status: Current Every Day Smoker Frequency of Alcohol Use: None Drugs: None - Advance Directive Resuscitation Status: Full Code Family History Family History: COPD Parental Family History Reviewed: Yes Children Family History Reviewed: Yes Sibling(s) Family History Reviewed.: Yes Medication/Allergy Home Medications: Omeprazole 20 mg PO DAILY #30 tab 05/29/18 Tramadol HCl [Ultram 50 mg Tablet] 50 mg PO ASDIR PRN #30 tablet 05/29/18 Allergies/Adverse Reactions: No Known Allergies Allergy (Verified 05/29/18 13:16) Review of Systems Constitutional: PRESENT: as per HPI, anorexia, fatigue, night sweats, weakness, weight loss. ABSENT: fever(s) Eyes: PRESENT: visual disturbances - Visualizing light only on the right side times 3 days, other - Right lid lag with mydriasis Ears: ABSENT: hearing changes Cardiovascular: ABSENT: chest pain, dyspnea on exertion, edema, orthropnea, palpitations Respiratory: ABSENT: cough, hemoptysis Gastrointestinal: ABSENT: abdominal pain, constipation, diarrhea, hematemesis, hematochezia, nausea, vomiting Genitourinary: ABSENT: dysuria, hematuria Musculoskeletal: PRESENT: as per HPI, muscle weakness. ABSENT: joint swelling Integumentary: PRESENT: as per HPI, other Neurological: PRESENT: as per HPI, confusion, frequent falls. ABSENT: syncope, tingling, tremor(s), vertigo Psychiatric: ABSENT: anxiety, depression, homidical ideation, suicidal ideation Endocrine: ABSENT: cold intolerance, heat intolerance, polydipsia, polyuria Hematologic/Lymphatic: ABSENT: easy bleeding, easy bruising Physical Exam Vital Signs: Temp Pulse Resp BP Pulse Ox 97.7 F 93 10 L 121/79 97 06/07/18 16:41 06/07/18 16:41 06/08/18 00:01 06/08/18 00:01 06/08/18 00:01 Intake & Output 06/06/18 06/07/18 06/08/18 11:59 11:59 11:59 Intake Total 2049 Balance 2049 Weight 61.689 kg General appearance: PRESENT: cooperative, mild distress, thin Head exam: PRESENT: atraumatic, normocephalic Eye exam: PRESENT: PERRLA, other - Right eyelid lag, with pupillary constriction, visualizing lights only Ear exam: PRESENT: normal external ear exam Mouth exam: PRESENT: dry mucosa, tongue midline Neck exam: PRESENT: lymphadenopathy. ABSENT: carotid bruit, JVD, thyromegaly Respiratory exam: PRESENT: clear to auscultation merritt, crackles, prolonged expiratory phas, tachypnea. ABSENT: rales, rhonchi, stridor, wheezes Cardiovascular exam: PRESENT: RRR. ABSENT: diastolic murmur, rubs, systolic murmur Pulses: PRESENT: normal dorsalis pedis pul Vascular exam: PRESENT: normal capillary refill GI/Abdominal exam: PRESENT: normal bowel sounds, soft. ABSENT: distended, guarding, mass, organolmegaly, rebound, tenderness Rectal exam: PRESENT: deferred Extremities exam: PRESENT: full ROM, +1 edema - Left upper extremity. ABSENT: calf tenderness, clubbing, pedal edema Musculoskeletal exam: PRESENT: other - Large soft nontender axillary mass Neurological exam: PRESENT: alert, altered, awake, oriented to person, oriented to place, oriented to time, oriented to situation, CN II-XII grossly intact. ABSENT: motor sensory deficit Psychiatric exam: PRESENT: unusual affect Skin exam: PRESENT: dry, intact, warm. ABSENT: cyanosis, rash Results Laboratory Results: 06/07/18 17:55 06/07/18 21:45 06/07/18 06/07/18 06/07/18 17:55 17:55 17:55 WBC 24.5 H RBC 4.72 Hgb 12.8 L Hct 38.5 MCV 82 MCH 27.1 MCHC 33.2 RDW 14.6 H Plt Count 222 Seg Neutrophils % Not Reportable Lymphocytes % Not Reportable Monocytes % Not Reportable Eosinophils % Not Reportable Basophils % Not Reportable Absolute Neutrophils Not Reportable Absolute Lymphocytes Not Reportable Absolute Monocytes Not Reportable Absolute Eosinophils Not Reportable Absolute Basophils Not Reportable Sodium 116.8 L* Potassium 6.9 H* Chloride 77 L Carbon Dioxide 15 L Anion Gap 25 H BUN 56 H Creatinine 2.01 H Est GFR ( Amer) 41 L Est GFR (Non-Af Amer) 34 L Glucose 73 L Serum Osmolality 269 L Calcium 8.8 Total Bilirubin 4.1 H AST 760 H ALT 267 H Alkaline Phosphatase 799 H Total Protein 6.3 Albumin 3.7 Lipase 316.2 H Urine Color Urine Appearance Urine pH Ur Specific [place] Urine Protein Urine Glucose (UA) Urine Ketones Urine Blood Urine Nitrite Ur Leukocyte Esterase Urine WBC (Auto) Urine RBC (Auto) 06/07/18 06/07/18 20:50 21:45 WBC RBC Hgb Hct MCV MCH MCHC RDW Plt Count Seg Neutrophils % Lymphocytes % Monocytes % Eosinophils % Basophils % Absolute Neutrophils Absolute Lymphocytes Absolute Monocytes Absolute Eosinophils Absolute Basophils Sodium 117.0 L* Potassium 6.0 H* Chloride 83 L Carbon Dioxide 17 L Anion Gap 17 BUN 55 H Creatinine 1.59 H Est GFR ( Amer) 54 L Est GFR (Non-Af Amer) 44 L Glucose 54 L Serum Osmolality Calcium 8.1 L Total Bilirubin AST ALT Alkaline Phosphatase Total Protein Albumin Lipase Urine Color SUSHANT Urine Appearance SLIGHTLY-CLOUDY Urine pH 5.0 Ur Specific [place] 1.015 Urine Protein 30 H Urine Glucose (UA) NEGATIVE Urine Ketones 20 H Urine Blood SMALL H Urine Nitrite NEGATIVE Ur Leukocyte Esterase NEGATIVE Urine WBC (Auto) 2 Urine RBC (Auto) 3 06/07/18 06/07/18 06/07/18 17:55 17:55 21:45 Creatine Kinase 150 CK-MB (CK-2) 4.49 Troponin I 0.018 0.018 Impressions: Chest X-Ray 06/07/18 17:45 IMPRESSION: Essentially stable imaging appearance of the chest demonstrating multiple nodular densities bilaterally, most likely on the basis of metastatic disease. Head CT 06/07/18 19:30 IMPRESSION: No evidence of parenchymal mass or mass effect. Incidental finding of spheno-ethmoid sinusitis. EVIDENCE OF ACUTE STROKE: NO. Abdomen Ultrasound 06/07/18 21:02 IMPRESSION: Diffusely heterogeneous echotexture to the liver with multiple poorly defined masses consistent with metastases, also seen on prior CT. Sludge in the gallbladder lumen. Equivocal/trace of pericholecystic fluid. Small volume of ascites. Splenomegaly at 14 cm copyright 2011 [employer]- All Rights Reserved Assessment & Plan - Diagnosis (1) Hyperkalemia Is this a current diagnosis for this admission?: Yes Plan: With peak T waves, ICU admission, calcium, Kayexalate, dextrose and insulin, follow-up chemistry (2) Hyponatremia Is this a current diagnosis for this admission?: Yes Plan: Appears hypovolemic, follow-up osmolarity and urine sodium. IV fluid challenge, follow-up nephrology consult, chemistry every 6 hours. (3) Liver failure, acute Qualifiers: Hepatic coma status: without hepatic coma Qualified Code(s): K72.00 - Acute and subacute hepatic failure without coma (4) Metastatic cancer Is this a current diagnosis for this admission?: Yes Plan: Follow-up, emergency room provider consults surgery, pathology and oncology for biopsy 06/09. (5) Renal failure, acute Qualifiers: Acute renal failure type: unspecified Qualified Code(s): N17.9 - Acute kidney failure, unspecified Is this a current diagnosis for this admission?: Yes Plan: Largely prerenal, IV fluid challenge, follow-up urinalysis and nephrology consult. - Time Time Spent: 50 to 70 Minutes - Inpatient Certification Medical Necessity: Need Close Monitoring Due to Risk of Patient Decompensation
[2018-06-08 03:18] LABS: INTERNATIONAL RATION (INR) 1.15; PROTHROMBIN TIME 15.3 SEC (11.4-15.4)
[2018-06-08 03:19] LABS: ABSOLUTE LYMPHOCYTES (AUTO) 2.3 10^3/uL (0.5-4.7); ABSOLUTE NEUT (AUTO) 10.9 10^3/uL (1.7-8.2); BASOPHILS % (AUTO) 0.3 % (0-2); HEMATOCRIT 31.2 % (37.9-51.0); HEMOGLOBIN 10.6 g/dL (13.5-17.0); LYMPHOCYTES % (AUTO) 16.1 % (13-45); MEAN CORPUSCULAR HGB CONC 33.9 g/dL (32.0-36.0); MEAN CORPUSCULAR VOLUME 80 fl (80-97); MONOCYTES % (AUTO) 7.2 % (3-13); PLATELET COUNT 156 10^3/uL (150-450); RED BLOOD COUNT 3.91 10^6/uL (4.35-5.55); RED CELL DISTRIBUTION WIDTH 14.3 % (11.5-14.0); SEGMENTED NEUTROPHILS % (AUTO) 76.4 % (42-78); TOTAL CELLS COUNTED % (AUTO) 100 %; WHITE BLOOD COUNT 14.3 10^3/uL (4.0-10.5)
[2018-06-08 03:23] LABS: ALANINE AMINOTRANSFERASE 251 U/L (21-72); ALBUMIN 2.8 g/dL (3.5-5.0); ALKALINE PHOSPHATASE 699 U/L (38-126); ANION GAP 17 (5-19); ASPARTATE AMINO TRANSFERASE 737 U/L (17-59); BILIRUBIN,DIRECT 3.2 mg/dL (0.0-0.4); BILIRUBIN,TOTAL 3.7 mg/dL (0.2-1.3); BLOOD UREA NITROGEN 50 mg/dL (7-20); CALCIUM 8.1 mg/dL (8.4-10.2); CARBON DIOXIDE 16 mmol/L (22-30); CHLORIDE 87 mmol/L (98-107); CREATINE KINASE 106 U/L (55-170); GLUCOSE 65 mg/dL (75-110); PHOSPHORUS 3.9 mg/dL (2.5-4.5); POTASSIUM 5.8 mmol/L (3.6-5.0); TOTAL PROTEIN 5.3 g/dL (6.3-8.2)
[2018-06-08 05:28] LABS: OSMOLALITY,URINE 433 mOsm/kg (300-900)
[2018-06-08 05:45] LABS: URINE SODIUM < 5 mmol/L (30-90)
[2018-06-08] MEDS: HEPARIN SOD (PORCINE) 5,000 UNIT/ML 1 ML SYRINGE SUBCUT SCH ×2 (05:52→15:50)
[2018-06-08] MEDS: NORMAL SALINE 1000 ML 1,000 ML IV PRN ×2 (05:53→11:27)
[2018-06-08] MEDS ORDERED: ALBUTEROL SULFATE 0.083% NEB 2.5 MG/3 ML AMPUL NEB PRN (08:34)
--- NOTE | 2018-06-08 08:49 | PDOC PROGRESS REPORT ---
Subjective Progress Note for:: 06/08/18 Subjective:: 06/08/[id number]-muwr-old male with history of CLL and newly diagnosed metastatic disease involving the chest and abdomen came to the emergency room with sustained falls without any significant injury but complaining of right eyelid closure and left arm swelling. Initially he was found to be in altered mental status when I went to talk to him he is alert and oriented communicating well and able to tell me where he was he was able to tell me why he was here and he was able to tell me where he leaves and he is put his roommate and his wishes for full code. With that he has cancer with widespread metastasis involving the liver and lungs. No acute events since the admission. Show sodium is 116 it was improved to 120. Nephrology consult was requested surgical consult was done for elevated LFTs and I placed a consult for ophthalmology for right eyelid closure and visual problems and oncology consult was placed with Dr. García. She denies any complaints except for pain and he wants to eat his breakfast. Reason For Visit: HYPONATREMIA, ARF, HYPOGLYCEMIA CHEST WALL Physical Exam Vital Signs: Temp Pulse Resp BP Pulse Ox 97.7 F 93 19 121/75 99 06/08/18 08:01 06/07/18 16:41 06/08/18 08:01 06/08/18 08:01 06/08/18 08:01 Intake & Output 06/07/18 06/08/18 06/09/18 06:59 06:59 06:59 Intake Total 2050 Output Total 700 Balance 1350 Weight 61.689 kg General appearance: PRESENT: no acute distress Eye exam: PRESENT: other - Right eyelid closure. Complains of right sided visual problems. Mouth exam: PRESENT: dry mucosa Neck exam: ABSENT: carotid bruit, JVD, lymphadenopathy, thyromegaly Respiratory exam: PRESENT: clear to auscultation merritt. ABSENT: rales, rhonchi, wheezes Cardiovascular exam: PRESENT: RRR. ABSENT: diastolic murmur, rubs, systolic murmur GI/Abdominal exam: PRESENT: normal bowel sounds, soft. ABSENT: distended, guard ing, mass, organolmegaly, rebound, tenderness Extremities exam: PRESENT: other - Edema. Neurological exam: PRESENT: alert, altered, oriented to person, oriented to place, oriented to time, oriented to situation, CN II-XII grossly intact Psychiatric exam: PRESENT: appropriate affect, normal mood. ABSENT: homicidal ideation, suicidal ideation Results Laboratory Results: 06/08/18 02:50 06/07/18 06/07/18 06/07/18 17:55 17:55 17:55 WBC 24.5 H RBC 4.72 Hgb 12.8 L Hct 38.5 MCV 82 MCH 27.1 MCHC 33.2 RDW 14.6 H Plt Count 222 Seg Neutrophils % Not Reportable Lymphocytes % Not Reportable Monocytes % Not Reportable Eosinophils % Not Reportable Basophils % Not Reportable Absolute Neutrophils Not Reportable Absolute Lymphocytes Not Reportable Absolute Monocytes Not Reportable Absolute Eosinophils Not Reportable Absolute Basophils Not Reportable Sodium 116.8 L* Potassium 6.9 H* Chloride 77 L Carbon Dioxide 15 L Anion Gap 25 H BUN 56 H Creatinine 2.01 H Est GFR ( Amer) 41 L Est GFR (Non-Af Amer) 34 L Glucose 73 L Serum Osmolality 269 L Calcium 8.8 Phosphorus Magnesium Total Bilirubin 4.1 H AST 760 H ALT 267 H Alkaline Phosphatase 799 H Total Protein 6.3 Albumin 3.7 Lipase 316.2 H Urine Color Urine Appearance Urine pH Ur Specific [place] Urine Protein Urine Glucose (UA) Urine Ketones Urine Blood Urine Nitrite Ur Leukocyte Esterase Urine WBC (Auto) Urine RBC (Auto) Urine Osmolality 06/07/18 06/07/18 06/07/18 20:50 20:50 21:45 WBC RBC Hgb Hct MCV MCH MCHC RDW Plt Count Seg Neutrophils % Lymphocytes % Monocytes % Eosinophils % Basophils % Absolute Neutrophils Absolute Lymphocytes Absolute Monocytes Absolute Eosinophils Absolute Basophils Sodium 117.0 L* Potassium 6.0 H* Chloride 83 L Carbon Dioxide 17 L Anion Gap 17 BUN 55 H Creatinine 1.59 H Est GFR ( Amer) 54 L Est GFR (Non-Af Amer) 44 L Glucose 54 L Serum Osmolality Calcium 8.1 L Phosphorus Magnesium Total Bilirubin AST ALT Alkaline Phosphatase Total Protein Albumin Lipase Urine Color SUSHANT Urine Appearance SLIGHTLY-CLOUDY Urine pH 5.0 Ur Specific [place] 1.015 Urine Protein 30 H Urine Glucose (UA) NEGATIVE Urine Ketones 20 H Urine Blood SMALL H Urine Nitrite NEGATIVE Ur Leukocyte Esterase NEGATIVE Urine WBC (Auto) 2 Urine RBC (Auto) 3 Urine Osmolality 433 06/08/18 06/08/18 02:50 02:50 WBC 14.3 H RBC 3.91 L Hgb 10.6 L D Hct 31.2 L MCV 80 MCH 27.0 MCHC 33.9 RDW 14.3 H Plt Count 156 Seg Neutrophils % 76.4 Lymphocytes % 16.1 Monocytes % 7.2 Eosinophils % 0.0 Basophils % 0.3 Absolute Neutrophils 10.9 H Absolute Lymphocytes 2.3 Absolute Monocytes 1.0 Absolute Eosinophils 0.0 Absolute Basophils 0.0 Sodium 120.0 L* Potassium 5.8 H Chloride 87 L Carbon Dioxide 16 L Anion Gap 17 BUN 50 H Creatinine 1.36 H Est GFR ( Amer) > 60 Est GFR (Non-Af Amer) 53 L Glucose 65 L Serum Osmolality Calcium 8.1 L Phosphorus 3.9 Magnesium 2.4 H Total Bilirubin 3.7 H AST 737 H ALT 251 H Alkaline Phosphatase 699 H Total Protein 5.3 L Albumin 2.8 L Lipase Urine Color Urine Appearance Urine pH Ur Specific [place] Urine Protein Urine Glucose (UA) Urine Ketones Urine Blood Urine Nitrite Ur Leukocyte Esterase Urine WBC (Auto) Urine RBC (Auto) Urine Osmolality 06/07/18 06/07/18 06/07/18 17:55 17:55 21:45 Creatine Kinase 150 CK-MB (CK-2) 4.49 Troponin I 0.018 0.018 06/08/18 02:50 Creatine Kinase 106 CK-MB (CK-2) Troponin I Impressions: Chest X-Ray 06/07/18 17:45 IMPRESSION: Essentially stable imaging appearance of the chest demonstrating multiple nodular densities bilaterally, most likely on the basis of metastatic disease. Head CT 06/07/18 19:30 IMPRESSION: No evidence of parenchymal mass or mass effect. Incidental finding of spheno-ethmoid sinusitis. EVIDENCE OF ACUTE STROKE: NO. Abdomen Ultrasound 06/07/18 21:02 IMPRESSION: Diffusely heterogeneous echotexture to the liver with multiple poorly defined masses consistent with metastases, also seen on prior CT. Sludge in the gallbladder lumen. Equivocal/trace of pericholecystic fluid. Small volume of ascites. Splenomegaly at 14 cm copyright 2011 [employer]- All Rights Reserved Assessment & Plan - Diagnosis (1) Metastatic cancer Is this a current diagnosis for this admission?: Yes Plan: 06/08/2018-patient has a CLL with widespread metastatic cancer. Consultation with oncology is requested. She is not on any chemo or radiation therapy at this moment. Because of the CLL extensive metastatic disease I am going to request for hospice consult. (2) Liver failure, acute Qualifiers: Hepatic coma status: without hepatic coma Qualified Code(s): K72.00 - Acute and subacute hepatic failure without coma Is this a current diagnosis for this admission?: Yes Plan: 06/08/2018 on examination of the abdomen enlarged liver palpable. Probably secondary to metastasis. Patient is not in liver failure. Signs of icterus. (3) Hyponatremia Is this a current diagnosis for this admission?: Yes Plan: 06/08/2018 admission sodium is 116. Improved to 120. Nephrology consult was placed for management of the hyponatremia. Patient is alert and awake communicating very well. Patient is not in fluid overload. He is denies any problems with urination. (4) Renal failure, acute Qualifiers: Acute renal failure type: unspecified Qualified Code(s): N17.9 - Acute kidney failure, unspecified Is this a current diagnosis for this admission?: Yes Plan: 06/08/2018 patient's admission creatinine is 2.01. It was improved to 1.36 with IV fluids. Acute renal failure may be secondary to poor oral intake. (5) Hyperkalemia Is this a current diagnosis for this admission?: Yes Plan: 06/08/2018 on admission patient potassium is 6.9 improved to 5.8. Patient denies any chest pains no EKG changes no EKG changes. Requested for a repeat CMP stat and order for Kayexalate 30 g every 12 hours, albuterol nebulizations for hyperkalemia. (6) Vision changes Is this a current diagnosis for this admission?: Yes Plan: 06/08/2018 patient is complaining of visual changes for the last 10 days. Especially the right eye. I am going to request for ophthalmology consult. CT head was negative for metastatic lesions. Order for MRI of the brain. - Time Time Spent with patient: 15-24 minutes Smoking Cessation Education: over 10 minutes Medications reviewed and adjusted accordingly: Yes Anticipated discharge: SNF
[2018-06-08 09:00] LABS: ALANINE AMINOTRANSFERASE 255 U/L (21-72); ALBUMIN 2.7 g/dL (3.5-5.0); ALKALINE PHOSPHATASE 705 U/L (38-126); BILIRUBIN,DIRECT 3.4 mg/dL (0.0-0.4); BILIRUBIN,TOTAL 3.9 mg/dL (0.2-1.3); BLOOD UREA NITROGEN 51 mg/dL (7-20); CALCIUM 7.9 mg/dL (8.4-10.2); CARBON DIOXIDE 18 mmol/L (22-30); CHLORIDE 88 mmol/L (98-107); GLUCOSE 65 mg/dL (75-110); POTASSIUM 5.7 mmol/L (3.6-5.0)
[2018-06-08 09:08] LABS: ASPARTATE AMINO TRANSFERASE 749 U/L (17-59)
[2018-06-08 09:13] LABS: ANION GAP 14 (5-19)
[2018-06-08 09:18] LABS: SODIUM 120.4 mmol/L (137-145)
[2018-06-08] MEDS ORDERED: HYDROMORPHONE HCL INJ/PF 2 MG/ML AMPULE IV PRN (09:27)
[2018-06-08] MEDS ORDERED: HYDROMORPHONE HCL INJ/PF 2 MG/ML AMPULE ONE (09:38)
[2018-06-08] MEDS: SODIUM POLYSTYRENE SULFONATE 15 GM/60 ML PO SCH (09:44)
[2018-06-08] MEDS: DOCUSATE SODIUM 100 MG CAPSULE PO SCH (10:10)
[2018-06-08] MEDS: HYDROMORPHONE HCL INJ/PF 2 MG/ML AMPULE IV PRN ×2 (11:20→18:46)
--- NOTE | 2018-06-08 12:41 | PDOC CONSULTATION ---
Consultation Consult Date: 06/08/18 Attending physician:: HARRY OLIVERA Consult reason:: Lung lesions, liver lesions, left axilla lymph node enlargement, history of CLL History of Present Illness Admission Date/PCP: 06/08/18 00:42 Patient complains of: Increasing weakness, left axillary swelling, abdominal pain, weight loss History of Present Illness: CARRILLO GELLER is a 63 year old male known to our oncology clinic with known history of CLL, this diagnosis is been there for several years, recently transferred care from Dr. Serna to Dr. Oates, was seen in our office about a week ago where he was noted to have increasing left axillary swelling, and imaging indicated multiple lung and liver lesions all concerning for metastatic disease, the plan was for him to receive an outpatient core needle biopsy of the left axilla through radiology. But he worsened, became weaker, was unable to get out of bed and ultimately came in, he came in with fairly severe hyp onatremia and elevated creatinine, worsened renal failure, was given aggressive hydration over the last 24 hours, was seen by general surgery who is happy to help with excisional biopsy if needed. Past Medical History Cardiac Medical History: Reports: None Pulmonary Medical History: Reports: None EENT Medical History: Reports: None Neurological Medical History: Reports: None Endocrine Medical History: Reports: None Renal/ Medical History: Reports: None Malignancy Medical History: Reports: Leukemia - CLL GI Medical History: Reports: None Musculoskeltal Medical History: Reports: None Skin Medical History: Reports: None Psychiatric Medical History: Reports: Tobacco Dependency Traumatic Medical History: Reports: None Hematology: Reports: None Infectious Medical History: Reports: None Past Surgical History Past Surgical History: Reports: None Social History Information Source: Patient Lives with: Family Smoking Status: Current Every Day Smoker Frequency of Alcohol Use: None Drugs: None - Advance Directive Resuscitation Status: Full Code Family History Family History: COPD Parental Family History Reviewed: Yes Children Family History Reviewed: Yes Sibling(s) Family History Reviewed.: Yes Medication/Allergy Home Medications: Omeprazole 20 mg PO DAILY #30 tab.rap 05/29/18 Tramadol HCl [Ultram 50 mg Tablet] 50 mg PO ASDIR PRN #30 tablet 05/29/18 Allergies/Adverse Reactions: No Known Allergies Allergy (Verified 05/29/18 13:16) Review of Systems Constitutional: PRESENT: anorexia, fatigue, weakness, weight loss Cardiovascular: ABSENT: chest pain, dyspnea on exertion, edema, orthropnea, palpitations Gastrointestinal: PRESENT: abdominal pain, bloating Genitourinary: ABSENT: dysuria, hematuria Neurological: ABSENT: abnormal gait, abnormal speech, confusion, dizziness, focal weakness, syncope Psychiatric: PRESENT: anxiety Physical Exam Vital Signs: Temp Pulse Resp BP Pulse Ox 97.7 F 93 16 121/92 H 96 06/08/18 08:01 06/07/18 16:41 06/08/18 11:58 06/08/18 11:58 06/08/18 11:58 Intake & Output 06/07/18 06/08/18 06/09/18 06:59 06:59 06:59 Intake Total 2050 1000 Output Total 700 250 Balance 1350 750 Weight 61.689 kg General appearance: PRESENT: no acute distress, well-developed, well-nourished Head exam: PRESENT: atraumatic, normocephalic Eye exam: PRESENT: conjunctiva pink, EOMI, PERRLA. ABSENT: scleral icterus Ear exam: PRESENT: normal external ear exam Mouth exam: PRESENT: moist, tongue midline Neck exam: ABSENT: carotid bruit, JVD, lymphadenopathy, thyromegaly Respiratory exam: PRESENT: clear to auscultation merritt. ABSENT: rales, rhonchi, wheezes Cardiovascular exam: PRESENT: RRR. ABSENT: diastolic murmur, rubs, systolic murmur Pulses: PRESENT: normal dorsalis pedis pul Vascular exam: PRESENT: normal capillary refill GI/Abdominal exam: PRESENT: normal bowel sounds, soft. ABSENT: distended, guarding, mass, organolmegaly, rebound, tenderness Rectal exam: PRESENT: deferred Extremities exam: PRESENT: full ROM. ABSENT: calf tenderness, clubbing, pedal edema Neurological exam: PRESENT: alert, awake, oriented to person, oriented to place, oriented to time, oriented to situation, CN II-XII grossly intact. ABSENT: motor sensory deficit Psychiatric exam: PRESENT: appropriate affect, normal mood. ABSENT: homicidal ideation, suicidal ideation Skin exam: PRESENT: dry, intact, warm. ABSENT: cyanosis, rash Results Laboratory Results: 06/08/18 02:50 06/08/18 08:30 06/07/18 06/07/18 06/07/18 17:55 17:55 17:55 WBC 24.5 H RBC 4.72 Hgb 12.8 L Hct 38.5 MCV 82 MCH 27.1 MCHC 33.2 RDW 14.6 H Plt Count 222 Seg Neutrophils % Not Reportable Lymphocytes % Not Reportable Monocytes % Not Reportable Eosinophils % Not Reportable Basophils % Not Reportable Absolute Neutrophils Not Reportable Absolute Lymphocytes Not Reportable Absolute Monocytes Not Reportable Absolute Eosinophils Not Reportable Absolute Basophils Not Reportable Sodium 116.8 L* Potassium 6.9 H* Chloride 77 L Carbon Dioxide 15 L Anion Gap 25 H BUN 56 H Creatinine 2.01 H Est GFR ( Amer) 41 L Est GFR (Non-Af Amer) 34 L Glucose 73 L Serum Osmolality 269 L Calcium 8.8 Phosphorus Magnesium Total Bilirubin 4.1 H AST 760 H ALT 267 H Alkaline Phosphatase 799 H Total Protein 6.3 Albumin 3.7 Lipase 316.2 H Urine Color Urine Appearance Urine pH Ur Specific [place] Urine Protein Urine Glucose (UA) Urine Ketones Urine Blood Urine Nitrite Ur Leukocyte Esterase Urine WBC (Auto) Urine RBC (Auto) Urine Osmolality 06/07/18 06/07/18 06/07/18 20:50 20:50 21:45 WBC RBC Hgb Hct MCV MCH MCHC RDW Plt Count Seg Neutrophils % Lymphocytes % Monocytes % Eosinophils % Basophils % Absolute Neutrophils Absolute Lymphocytes Absolute Monocytes Absolute Eosinophils Absolute Basophils Sodium 117.0 L* Potassium 6.0 H* Chloride 83 L Carbon Dioxide 17 L Anion Gap 17 BUN 55 H Creatinine 1.59 H Est GFR ( Amer) 54 L Est GFR (Non-Af Amer) 44 L Glucose 54 L Serum Osmolality Calcium 8.1 L Phosphorus Magnesium Total Bilirubin AST ALT Alkaline Phosphatase Total Protein Albumin Lipase Urine Color SUSHANT Urine Appearance SLIGHTLY-CLOUDY Urine pH 5.0 Ur Specific [place] 1.015 Urine Protein 30 H Urine Glucose (UA) NEGATIVE Urine Ketones 20 H Urine Blood SMALL H Urine Nitrite NEGATIVE Ur Leukocyte Esterase NEGATIVE Urine WBC (Auto) 2 Urine RBC (Auto) 3 Urine Osmolality 433 06/08/18 06/08/18 06/08/18 02:50 02:50 08:30 WBC 14.3 H RBC 3.91 L Hgb 10.6 L D Hct 31.2 L MCV 80 MCH 27.0 MCHC 33.9 RDW 14.3 H Plt Count 156 Seg Neutrophils % 76.4 Lymphocytes % 16.1 Monocytes % 7.2 Eosinophils % 0.0 Basophils % 0.3 Absolute Neutrophils 10.9 H Absolute Lymphocytes 2.3 Absolute Monocytes 1.0 Absolute Eosinophils 0.0 Absolute Basophils 0.0 Sodium 120.0 L* 120.4 L* Potassium 5.8 H 5.7 H Chloride 87 L 88 L Carbon Dioxide 16 L 18 L Anion Gap 17 14 BUN 50 H 51 H Creatinine 1.36 H 1.28 H Est GFR ( Amer) > 60 > 60 Est GFR (Non-Af Amer) 53 L 57 L Glucose 65 L 65 L Serum Osmolality Calcium 8.1 L 7.9 L Phosphorus 3.9 Magnesium 2.4 H Total Bilirubin 3.7 H 3.9 H AST 737 H 749 H ALT 251 H 255 H Alkaline Phosphatase 699 H 705 H Total Protein 5.3 L 5.0 L Albumin 2.8 L 2.7 L Lipase Urine Color Urine Appearance Urine pH Ur Specific [place] Urine Protein Urine Glucose (UA) Urine Ketones Urine Blood Urine Nitrite Ur Leukocyte Esterase Urine WBC (Auto) Urine RBC (Auto) Urine Osmolality 06/07/18 06/07/18 06/07/18 17:55 17:55 21:45 Creatine Kinase 150 CK-MB (CK-2) 4.49 Troponin I 0.018 0.018 06/08/18 02:50 Creatine Kinase 106 CK-MB (CK-2) Troponin I Impressions: Chest X-Ray 06/07/18 17:45 IMPRESSION: Essentially stable imaging appearance of the chest demonstrating multiple nodular densities bilaterally, most likely on the basis of metastatic disease. Head CT 06/07/18 19:30 IMPRESSION: No evidence of parenchymal mass or mass effect. Incidental finding of spheno-ethmoid sinusitis. EVIDENCE OF ACUTE STROKE: NO. Abdomen Ultrasound 06/07/18 21:02 IMPRESSION: Diffusely heterogeneous echotexture to the liver with multiple poorly defined masses consistent with metastases, also seen on prior CT. Sludge in the gallbladder lumen. Equivocal/trace of pericholecystic fluid. Small volume of ascites. Splenomegaly at 14 cm copyright 2011 [employer]- All Rights Reserved Status: Image reviewed by me Assessment & Plan - Diagnosis (1) Metastatic cancer Is this a current diagnosis for this admission?: Yes Plan: Metastatic presentation with multiple areas of concern, in the setting of CLL, we need to do an excisional biopsy of the axilla if we can, but core needle biopsy would be okay if that is the best we can do. Patient would need to be done tomorrow because we need pathology and lab techs available to send specimen off fresh for lymphoma protocol. (2) CLL (chronic lymphoid leukemia) in relapse Is this a current diagnosis for this admission?: Yes Plan: Unknown if the metastatic presentation is secondary to CLL or not but that would be the first possibility, plan for biopsy as noted above. - Time Time Spent: Greater than 70 Minutes - Inpatient Certification Based on my medical assessment, after consideration of the patient's c omorbidities, presenting symptoms, or acuity I expect that the services needed warrant INPATIENT care.: Yes I certify that my determination is in accordance with my understanding of Medicare's requirements for reasonable and necessary INPATIENT services [42 CFR 412.3e].: Yes Medical Necessity: Need For IV Fluids, Need for Surgery, Risk of Complication if Not Cared For in Hospital
--- NOTE | 2018-06-08 15:32 | RADIOLOGY REPORT (SQ) ---
EXAM DESCRIPTION: MRI HEAD WITHOUT COMPLETED DATE/TIME: 06/08/2018 3:02 pm REASON FOR STUDY: mets COMPARISON: CT 06/07/2018 TECHNIQUE: Multiplanar imaging includes non-contrasted T1, T2, FLAIR, and diffusion with ADC map seq uences. Images stored on PACS. LIMITATIONS: None. FINDINGS: ANATOMY: No anomalies. Normal vascular flow voids. Pituitary fossa normal. CSF SPACES: Normal in size and contour. No hemorrhage. CEREBRUM: Sulci and gyri normal in size and contour. Normal white matter signal on FLAIR imaging. No evidence of hemorrhage, mass, or extraaxial fluid collection. POSTERIOR FOSSA: No signal alteration. No hemorrhage. No edema, masses or mass effect. Internal jack tory canals, cerebello-pontine angles, mastoids normal. DIFFUSION IMAGING: There is a very small focus of restricted diffusion in the left posterior frontal lobe. ORBITS: No masses. Globes normal. PARANASAL SINUSES: No fluid levels. Mucosa normal. OTHER: No other significant finding. IMPRESSION: No metastases are present. Cannot exclude very limited white matter infarction in the l eft posterior frontal lobe. EVIDENCE OF ACUTE STROKE: NO. TECHNICAL DOCUMENTATION: JOB ID: [id number] [employer]- All Rights Reserved Reading location - IP/workstation name: [email or web address]
[2018-06-08 16:06] LABS: ANION GAP 15 (5-19); BLOOD UREA NITROGEN 48 mg/dL (7-20); CARBON DIOXIDE 17 mmol/L (22-30); CHLORIDE 91 mmol/L (98-107); GLUCOSE 137 mg/dL (75-110); POTASSIUM 5.3 mmol/L (3.6-5.0); SODIUM 122.6 mmol/L (137-145)
[2018-06-08] MEDS ORDERED: SODIUM CHLORIDE 3% 150 ML IV ONE (17:00)
[2018-06-08] MEDS ORDERED: DEXTROSE 40% GEL 15 GM TUBE PO PRN ×2 (17:03)
[2018-06-08] MEDS ORDERED: GLUCAGON,HUMAN RECOMB 1 MG INJ SUBCUT PRN (17:03)
[2018-06-08] MEDS ORDERED: DEXTROSE 50%-WATER 25 GM/50 ML DISP.SYRIN IV PRN ×2 (17:03)
--- NOTE | 2018-06-08 17:11 | PDOC CONSULTATION ---
Consultation Consult Date: 06/08/18 Consult reason:: KASSIE, Acute severe Hyponatremia with neurological deficits. History of Present Illness Admission Date/PCP: 06/08/18 00:42 History of Present Illness: CARRILLO GELLER is a 63 year old male with a remote history of CLL diagnosed apparently 3 years ago, was sent to the ER by his roommate with a history of progressive weakness over the last few days along with recurring falls over the last couple of days prior to his admission.The patient was seen approximately a week ago by Dr. Bright/oncologist for a progressively enlarging mass lesion of his left axilla protruding into his anterior left chest which has begun to become painful over the last few weeks. According to him and his brother and [id number] who was at the bedside a decision was made to have a biopsy done soon after Natasha. In the meanwhile he was also seen in the ER on the which had shown that he had multiple metastatic lesions in his lungs along with the abnormal soft tissue mass in his left axilla, the metastatic lesions into his liver and spleen and retroperitoneal lymphadenopathy.The patient is a poor historian. He has developed weakness of his left side along with closure of his right eyes but he is unable to tell me when this happened. He is unable to open his right eye or move his left side of the body which is very minimal. He denies any history of headaches or history to indicate seizures.He denies any history of nausea or vomiting but has been having upper abdominal pains for the last week or so. He admits to fullness of the stomach with lack of appetite and loss of weight.No history of any constitutional symptoms. 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 They admit to the fact that the patient is an alcoholic and drinks approximately 10-12 beers a day for the last many years. He says his last alcohol drink was approximately 10 days ago. He is also a smoker. He does not have a primary care physician. The last time they spoke to him was approximately a month ago when his [id number] noticed that the patient was weak but did not show any obvious focal weakness and did not complain of any mass lesion on his chest and axilla. Patient has begun to deteriorate over the last 1 week rapidly with poor intake but apparently according to the patient and his brother he has been drinking a lot of water. His sodium when he came to the ER yesterday was very low at 117 but his sodium on the 15th of this month was 135. He was given normal saline since this admission and latest sodium is 122. Past Medical History Cardiac Medical History: Reports: None Pulmonary Medical History: Reports: None EENT Medical History: Reports: None Neurological Medical History: Reports: None Endocrine Medical History: Reports: None Complications of Diabetes: Reports: None Renal/ Medical History: Reports: None Malignancy Medical History: Reports: Leukemia - CLL GI Medical History: Reports: None Musculoskeltal Medical History: Reports: None Skin Medical History: Reports: None Psychiatric Medical History: Reports: Tobacco Dependency Traumatic Medical History: Reports: None Infectious Medical History: Reports: None Past Surgical History Past Surgical History: Reports: None Social History Lives with: Family Smoking Status: Current Every Day Smoker Frequency of Alcohol Use: None Drugs: None - Advance Directive Resuscitation Status: Full Code Family History Parental Family History Reviewed: Yes - Negative for CKD. Children Family History Reviewed: No Sibling(s) Family History Reviewed.: Yes - 1 brother with cancer of the prostate. Medication/Allergy Home Medications: Tramadol HCl [Ultram 50 mg Tablet] 50 mg PO ASDIR PRN #30 tablet 05/29/18 Allergies/Adverse Reactions: No Known Allergies Allergy (Verified 06/08/18 14:07) Review of Systems Constitutional: PRESENT: anorexia, fatigue, weakness, weight loss. ABSENT: chills, fever(s), headache(s), night sweats Eyes: PRESENT: visual disturbances Ears: ABSENT: hearing changes Nose, Mouth, and Throat: ABSENT: mouth pain, sore throat Cardiovascular: PRESENT: chest pain - Of the swelling affecting his left axilla and left anterior chest wall.. ABSENT: dyspnea on exertion, edema, orthropnea, palpitations Gastrointestinal: PRESENT: abdominal pain - In the epigastric region. ABSENT: coffee ground emesis, constipation, diarrhea, dysphagia, heartburn, hematemesis, hematochezia, nausea, vomiting Integumentary: ABSENT: erythema, lesions, pruritus, rash Neurological: PRESENT: abnormal speech, focal weakness - Affecting his left side., frequent falls - But denies orthostasis, memory loss. ABSENT: dizziness, numbness, paresthesias, restless legs Psychiatric: ABSENT: hallucinations, suicidal ideation Hematologic/Lymphatic: PRESENT: lymphadenopathy. ABSENT: easy bleeding, easy bruising Physical Exam Vital Signs: Temp Pulse Resp BP Pulse Ox 97.7 F 115 H 23 H 114/86 H 98 06/08/18 08:01 06/08/18 09:45 06/08/18 14:01 06/08/18 14:00 06/08/18 14:01 Intake & Output 06/07/18 06/08/18 06/09/18 06:59 06:59 06:59 Intake Total 2050 1000 Output Total 700 800 Balance 1350 200 Weight 61.689 kg General appearance: PRESENT: no acute distress, disheveled Head exam: PRESENT: atraumatic, normocephalic Eye exam: PRESENT: conjunctiva pink, PERRLA - He had severe ptosis affecting his right eye. Patient was unable to follow finger using his right eye and they were in the mid position.. ABSENT: nystagmus Ear exam: PRESENT: normal external ear exam Neck exam: PRESENT: lymphadenopathy - Affecting his left axilla and left supraclavicular lymph nodes.. ABSENT: meningismus, tenderness, thyromegaly, tracheal deviation Respiratory exam: PRESENT: clear to auscultation merritt, other - He had hard tender mass lesion extending from his left axilla into the anterior chest wall.. ABSENT: crackles Cardiovascular exam: PRESENT: +S1, +S2 GI/Abdominal exam: PRESENT: distended, mass, normal bowel sounds, organomegaly - He had a four finger tender liver., soft, tenderness - Over the fourth finger enlarged liver. Spleen was enlarged but was nontender. Extremities exam: ABSENT: calf tenderness, pedal edema Neurological exam: PRESENT: altered - Patient had difficulty in expressing himself. He took a lot of time to concentrate and focus on the questions and had an inordinate delay in reply., oriented to person, oriented to place, motor sensory deficit - He had very minimal movement affecting his left side of the body both upper and lower extremity. Skin exam: PRESENT: dry. ABSENT: erythema, mottled, rash Results Laboratory Results: 06/08/18 02:50 06/08/18 15:25 1206/07/18 06/07/18 17:55 17:55 17:55 WBC 24.5 H RBC 4.72 Hgb 12.8 L Hct 38.5 MCV 82 MCH 27.1 MCHC 33.2 RDW 14.6 H Plt Count 222 Seg Neutrophils % Not Reportable Lymphocytes % Not Reportable Monocytes % Not Reportable Eosinophils % Not Reportable Basophils % Not Reportable Absolute Neutrophils Not Reportable Absolute Lymphocytes Not Reportable Absolute Monocytes Not Reportable Absolute Eosinophils Not Reportable Absolute Basophils Not Reportable Sodium 116.8 L* Potassium 6.9 H* Chloride 77 L Carbon Dioxide 15 L Anion Gap 25 H BUN 56 H Creatinine 2.01 H Est GFR ( Amer) 41 L Est GFR (Non-Af Amer) 34 L Glucose 73 L Serum Osmolality 269 L Calcium 8.8 Phosphorus Magnesium Total Bilirubin 4.1 H AST 760 H ALT 267 H Alkaline Phosphatase 799 H Total Protein 6.3 Albumin 3.7 Lipase 316.2 H Urine Color Urine Appearance Urine pH Ur Specific [place] Urine Protein Urine Glucose (UA) Urine Ketones Urine Blood Urine Nitrite Ur Leukocyte Esterase Urine WBC (Auto) Urine RBC (Auto) Urine Osmolality 06/07/18 06/07/18 06/07/18 20:50 20:50 21:45 WBC RBC Hgb Hct MCV MCH MCHC RDW Plt Count Seg Neutrophils % Lymphocytes % Monocytes % Eosinophils % Basophils % Absolute Neutrophils Absolute Lymphocytes Absolute Monocytes Absolute Eosinophils Absolute Basophils Sodium 117.0 L* Potassium 6.0 H* Chloride 83 L Carbon Dioxide 17 L Anion Gap 17 BUN 55 H Creatinine 1.59 H Est GFR ( Amer) 54 L Est GFR (Non-Af Amer) 44 L Glucose 54 L Serum Osmolality Calcium 8.1 L Phosphorus Magnesium Total Bilirubin AST ALT Alkaline Phosphatase Total Protein Albumin Lipase Urine Color SUSHANT Urine Appearance SLIGHTLY-CLOUDY Urine pH 5.0 Ur Specific [place] 1.015 Urine Protein 30 H Urine Glucose (UA) NEGATIVE Urine Ketones 20 H Urine Blood SMALL H Urine Nitrite NEGATIVE Ur Leukocyte Esterase NEGATIVE Urine WBC (Auto) 2 Urine RBC (Auto) 3 Urine Osmolality 433 06/08/18 06/08/18 06/08/18 02:50 02:50 08:30 WBC 14.3 H RBC 3.91 L Hgb 10.6 L D Hct 31.2 L MCV 80 MCH 27.0 MCHC 33.9 RDW 14.3 H Plt Count 156 Seg Neutrophils % 76.4 Lymphocytes % 16.1 Monocytes % 7.2 Eosinophils % 0.0 Basophils % 0.3 Absolute Neutrophils 10.9 H Absolute Lymphocytes 2.3 Absolute Monocytes 1.0 Absolute Eosinophils 0.0 Absolute Basophils 0.0 Sodium 120.0 L* 120.4 L* Potassium 5.8 H 5.7 H Chloride 87 L 88 L Carbon Dioxide 16 L 18 L Anion Gap 17 14 BUN 50 H 51 H Creatinine 1.36 H 1.28 H Est GFR ( Amer) > 60 > 60 Est GFR (Non-Af Amer) 53 L 57 L Glucose 65 L 65 L Serum Osmolality Calcium 8.1 L 7.9 L Phosphorus 3.9 Magnesium 2.4 H Total Bilirubin 3.7 H 3.9 H AST 737 H 749 H ALT 251 H 255 H Alkaline Phosphatase 699 H 705 H Total Protein 5.3 L 5.0 L Albumin 2.8 L 2.7 L Lipase Urine Color Urine Appearance Urine pH Ur Specific [place] Urine Protein Urine Glucose (UA) Urine Ketones Urine Blood Urine Nitrite Ur Leukocyte Esterase Urine WBC (Auto) Urine RBC (Auto) Urine Osmolality 06/08/18 15:25 WBC RBC Hgb Hct MCV MCH MCHC RDW Plt Count Seg Neutrophils % Lymphocytes % Monocytes % Eosinophils % Basophils % Absolute Neutrophils Absolute Lymphocytes Absolute Monocytes Absolute Eosinophils Absolute Basophils Sodium 122.6 L Potassium 5.3 H Chloride 91 L Carbon Dioxide 17 L Anion Gap 15 BUN 48 H Creatinine 1.17 Est GFR ( Amer) > 60 Est GFR (Non-Af Amer) > 60 Glucose 137 H Serum Osmolality Calcium 8.0 L Phosphorus Magnesium Total Bilirubin AST ALT Alkaline Phosphatase Total Protein Albumin Lipase Urine Color Urine Appearance Urine pH Ur Specific [place] Urine Protein Urine Glucose (UA) Urine Ketones Urine Blood Urine Nitrite Ur Leukocyte Esterase Urine WBC (Auto) Urine RBC (Auto) Urine Osmolality 06/07/18 06/07/18 06/07/18 17:55 17:55 21:45 Creatine Kinase 150 CK-MB (CK-2) 4.49 Troponin I 0.018 0.018 06/08/18 02:50 Creatine Kinase 106 CK-MB (CK-2) Troponin I Impressions: Chest X-Ray 06/07/18 17:45 IMPRESSION: Essentially stable imaging appearance of the chest demonstrating multiple nodular densities bilaterally, most likely on the basis of metastatic disease. Head CT 06/07/18 19:30 IMPRESSION: No evidence of parenchymal mass or mass effect. Incidental finding of spheno-ethmoid sinusitis. EVIDENCE OF ACUTE STROKE: NO. Abdomen Ultrasound 06/07/18 21:02 IMPRESSION: Diffusely heterogeneous echotexture to the liver with multiple poorly defined masses consistent with metastases, also seen on prior CT. Sludge in the gallbladder lumen. Equivocal/trace of pericholecystic fluid. Small volume of ascites. Splenomegaly at 14 cm copyright 2011 [employer]- All Rights Reserved Head MRI 06/08/18 00:00 IMPRESSION: No metastases are present. Cannot exclude very limited white matter infarction in the left posterior frontal lobe. EVIDENCE OF ACUTE STROKE: NO. Assessment & Plan - Diagnosis (1) Acute hyponatremia Plan: Admission sodium was 117 which has been corrected to 122 as of now with normal saline. 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 He has neurological weakness is also indicative of probably related to his hyponatremia as his CT of his head and MRI of his brain were negative for any focal metastatic lesion or stroke. At this point I would employ usage of 3% saline and see how he responds neurologically to that if I get his sodium up to the high 120s. Discussed at length with the treating nurse Precious about the importance of careful infusion even though the chances of over correcting too rapidly for fear of central pontine myelinolysis is low given the fact that this is acute hyponatremia. We will go ahead and do a repeat set of labs now checking his osmolality and sodium to see the correction of sodium by usage of normal saline employed by the ER physicians during last night admission. (2) Weakness of left side of body Plan: Likely secondary to his acute hyponatremia. His MRI done just now was reviewed which was negative for any focal mass lesions or evidence cyst to indicate vascular incidents. (3) Hepatosplenomegaly Plan: The presence of splenomegaly may make one wonder whether he has got portal hypertension from underlying liver cirrhosis from his alcoholism. However he has got a painful tender hepatomegaly with with metastatic lesions. (4) Hyperkalemia Is this a current diagnosis for this admission?: Yes Plan: Improved after correction of his acute kidney injury with normal saline (5) Liver failure, acute Qualifiers: Hepatic coma status: without hepatic coma Qualified Code(s): K72.00 - Acute and subacute hepatic failure without coma Is this a current diagnosis for this admission?: Yes Plan: Lab values are indicative of intrinsic as well as obstructive liver picture. Obviously his CT scan shows multiple metastatic lesions in his liver. Also given the history of his alcoholism one may have to add liver cirrhosis as additional underlying pathology as well. (6) Metastatic cancer Is this a current diagnosis for this admission?: Yes Plan: As seen on the multiple CT scans done on the . Unknown primary. (7) Renal failure, acute Qualifiers: Acute renal failure type: unspecified Qualified Code(s): N17.9 - Acute kidney failure, unspecified Is this a current diagnosis for this admission?: Yes Plan: Prerenal. Markedly improved with normal saline. (8) Vision changes Is this a current diagnosis for this admission?: Yes Plan: He has got severe ptosis of his right eye with a stationary eye which is not following finger movements. However his pupils were normal in size indicative of a normal third cranial nerve. Currently I consider the involvement of the 4 th and the 6th cranial nerves. However MRI scan does not show any focal mass lesion, nor any vascular incident that makes me to think that this could be rel ated to his acute hyponatremia. It would be interesting to see if he responds to correction of his hyponatremia. (9) Lymphadenopathy, axillary Plan: Versus mass lesion. Being followed by oncology and surgery.
[2018-06-08] MEDS ORDERED: MORPHINE SULFATE 10 MG/ML INJ IV PRN ×2 (19:45)
[2018-06-08 22:14] LABS: ALANINE AMINOTRANSFERASE 309 U/L (21-72); ALBUMIN 2.8 g/dL (3.5-5.0); ALKALINE PHOSPHATASE 824 U/L (38-126); ANION GAP 11 (5-19); BILIRUBIN,DIRECT 3.6 mg/dL (0.0-0.4); BLOOD UREA NITROGEN 49 mg/dL (7-20); CARBON DIOXIDE 19 mmol/L (22-30); CHLORIDE 93 mmol/L (98-107); GLUCOSE 148 mg/dL (75-110); POTASSIUM 5.3 mmol/L (3.6-5.0); SODIUM 123.3 mmol/L (137-145); TOTAL PROTEIN 5.1 g/dL (6.3-8.2)
[2018-06-08 22:22] LABS: ASPARTATE AMINO TRANSFERASE 783 U/L (17-59)
[2018-06-08] MEDS: MORPHINE SULFATE 10 MG/ML INJ IV PRN (23:39)
[2018-06-09] MEDS: SODIUM POLYSTYRENE SULFONATE 15 GM/60 ML PO SCH ×2 (01:06→22:49)
[2018-06-09] MEDS: DOCUSATE SODIUM 100 MG CAPSULE PO SCH ×3 (01:07→17:48)
[2018-06-09] MEDS: NORMAL SALINE 1000 ML 1,000 ML IV PRN ×2 (01:13→18:54)
[2018-06-09 01:34] LABS: ABSOLUTE LYMPHOCYTES (AUTO) 1.5 10^3/uL (0.5-4.7); ABSOLUTE MONOCYTES (AUTO) 1.2 10^3/uL (0.1-1.4); BASOPHILS % (AUTO) 0.2 % (0-2); EOSINOPHILS % (AUTO) 0.1 % (0-6); HEMATOCRIT 31.3 % (37.9-51.0); HEMOGLOBIN 10.6 g/dL (13.5-17.0); LYMPHOCYTES % (AUTO) 11.6 % (13-45); MEAN CORPUSCULAR HEMOGLOBIN 26.9 pg (27.0-33.4); MEAN CORPUSCULAR HGB CONC 33.9 g/dL (32.0-36.0); MEAN CORPUSCULAR VOLUME 80 fl (80-97); MONOCYTES % (AUTO) 9.2 % (3-13); PLATELET COUNT 143 10^3/uL (150-450); RED BLOOD COUNT 3.94 10^6/uL (4.35-5.55); RED CELL DISTRIBUTION WIDTH 14.4 % (11.5-14.0); SEGMENTED NEUTROPHILS % (AUTO) 78.9 % (42-78); TOTAL CELLS COUNTED % (AUTO) 100 %; WHITE BLOOD COUNT 12.7 10^3/uL (4.0-10.5)
[2018-06-09 01:49] LABS: ALANINE AMINOTRANSFERASE 341 U/L (21-72); ALBUMIN 2.9 g/dL (3.5-5.0); ALKALINE PHOSPHATASE 852 U/L (38-126); ANION GAP 10 (5-19); BILIRUBIN,DIRECT 3.5 mg/dL (0.0-0.4); BILIRUBIN,TOTAL 3.9 mg/dL (0.2-1.3); BLOOD UREA NITROGEN 50 mg/dL (7-20); CALCIUM 8.2 mg/dL (8.4-10.2); CARBON DIOXIDE 20 mmol/L (22-30); CHLORIDE 95 mmol/L (98-107); GLUCOSE 142 mg/dL (75-110); POTASSIUM 5.3 mmol/L (3.6-5.0); SODIUM 124.5 mmol/L (137-145); TOTAL PROTEIN 5.5 g/dL (6.3-8.2)
[2018-06-09] MEDS: MORPHINE SULFATE 10 MG/ML INJ IV PRN ×5 (01:54→22:49)
[2018-06-09 01:55] LABS: ASPARTATE AMINO TRANSFERASE 867 U/L (17-59)
[2018-06-09] MEDS ORDERED: MORPHINE SULFATE 10 MG/ML INJ IV PRN ×3 (03:16→03:30)
[2018-06-09 05:33] LABS: ABSOLUTE LYMPHOCYTES (AUTO) 1.4 10^3/uL (0.5-4.7); ABSOLUTE NEUT (AUTO) 8.9 10^3/uL (1.7-8.2); BASOPHILS % (AUTO) 0.2 % (0-2); EOSINOPHILS % (AUTO) 0.1 % (0-6); HEMATOCRIT 30.8 % (37.9-51.0); HEMOGLOBIN 10.5 g/dL (13.5-17.0); LYMPHOCYTES % (AUTO) 12.1 % (13-45); MEAN CORPUSCULAR HEMOGLOBIN 27.1 pg (27.0-33.4); MEAN CORPUSCULAR VOLUME 80 fl (80-97); MONOCYTES % (AUTO) 8.9 % (3-13); PLATELET COUNT 145 10^3/uL (150-450); RED BLOOD COUNT 3.86 10^6/uL (4.35-5.55); RED CELL DISTRIBUTION WIDTH 14.5 % (11.5-14.0); SEGMENTED NEUTROPHILS % (AUTO) 78.7 % (42-78); TOTAL CELLS COUNTED % (AUTO) 100 %; WHITE BLOOD COUNT 11.4 10^3/uL (4.0-10.5)
[2018-06-09 05:34] LABS: INTERNATIONAL RATION (INR) 1.24; PROTHROMBIN TIME 16.2 SEC (11.4-15.4)
[2018-06-09 05:35] LABS: PARTIAL THROMBOPLASTIN TIME 32.8 SEC (23.5-35.8)
[2018-06-09 05:47] LABS: ANION GAP 11 (5-19); BLOOD UREA NITROGEN 53 mg/dL (7-20); CALCIUM 8.1 mg/dL (8.4-10.2); CARBON DIOXIDE 19 mmol/L (22-30); CHLORIDE 96 mmol/L (98-107); GLUCOSE 133 mg/dL (75-110); POTASSIUM 5.5 mmol/L (3.6-5.0); SODIUM 126.4 mmol/L (137-145)
[2018-06-09] MEDS ORDERED: SODIUM CHLORIDE 3% 200 ML IV ONE (07:45)
--- NOTE | 2018-06-09 08:07 | PDOC PROGRESS REPORT ---
Subjective Progress Note for:: 06/09/18 Subjective:: Pt had severe pain upon getting to floor, did receive several doses of morphine, seems sleepy this am Reason For Visit: HYPONATREMIA Physical Exam Vital Signs: Temp Pulse Resp BP Pulse Ox 97.5 F 71 14 103/65 97 06/08/18 23:27 06/09/18 03:00 06/09/18 03:00 06/09/18 03:00 06/09/18 03:00 Intake & Output 06/08/18 06/09/18 06/10/18 06:59 06:59 06:59 Intake Total 2050 2150 Output Total 700 925 Balance 1350 1225 Weight 61.689 kg 64.6 kg General appearance: PRESENT: no acute distress, well-developed, well-nourished Head exam: PRESENT: atraumatic, normocephalic Eye exam: PRESENT: conjunctiva pink, EOMI, PERRLA. ABSENT: scleral icterus Ear exam: PRESENT: normal external ear exam Mouth exam: PRESENT: moist, tongue midline Neck exam: ABSENT: carotid bruit, JVD, lymphadenopathy, thyromegaly Respiratory exam: PRESENT: clear to auscultation merritt. ABSENT: rales, rhonchi, wheezes Cardiovascular exam: PRESENT: RRR. ABSENT: diastolic murmur, rubs, systolic murmur Pulses: PRESENT: normal dorsalis pedis pul Vascular exam: PRESENT: normal capillary refill GI/Abdominal exam: PRESENT: normal bowel sounds, soft. ABSENT: distended, guarding, mass, organolmegaly, rebound, tenderness Rectal exam: PRESENT: deferred Extremities exam: PRESENT: full ROM. ABSENT: calf tenderness, clubbing, pedal edema Neurological exam: PRESENT: alert, awake, oriented to person, oriented to place, oriented to time, oriented to situation, CN II-XII grossly intact. ABSENT: motor sensory deficit Psychiatric exam: PRESENT: appropriate affect, normal mood. ABSENT: homicidal ideation, suicidal ideation Skin exam: PRESENT: dry, intact, warm. ABSENT: cyanosis, rash Results Laboratory Results: 06/09/18 04:47 06/09/18 04:47 06/08/18 06/08/18 06/08/18 08:30 15:25 15:25 WBC RBC Hgb Hct MCV MCH MCHC RDW Plt Count Seg Neutrophils % Lymphocytes % Monocytes % Eosinophils % Basophils % Absolute Neutrophils Absolute Lymphocytes Absolute Monocytes Absolute Eosinophils Absolute Basophils Sodium 120.4 L* 122.6 L Potassium 5.7 H 5.3 H Chloride 88 L 91 L Carbon Dioxide 18 L 17 L Anion Gap 14 15 BUN 51 H 48 H Creatinine 1.28 H 1.17 Est GFR ( Amer) > 60 > 60 Est GFR (Non-Af Amer) 57 L > 60 Glucose 65 L 137 H Serum Osmolality 272 L Calcium 7.9 L 8.0 L Total Bilirubin 3.9 H AST 749 H ALT 255 H Alkaline Phosphatase 705 H Total Protein 5.0 L Albumin 2.7 L TSH 06/08/18 06/08/18 06/09/18 15:25 21:50 01:24 WBC 12.7 H RBC 3.94 L Hgb 10.6 L Hct 31.3 L MCV 80 MCH 26.9 L MCHC 33.9 RDW 14.4 H Plt Count 143 L Seg Neutrophils % 78.9 H Lymphocytes % 11.6 L Monocytes % 9.2 Eosinophils % 0.1 Basophils % 0.2 Absolute Neutrophils 10.0 H Absolute Lymphocytes 1.5 Absolute Monocytes 1.2 Absolute Eosinophils 0.0 Absolute Basophils 0.0 Sodium 123.3 L Potassium 5.3 H Chloride 93 L Carbon Dioxide 19 L Anion Gap 11 BUN 49 H Creatinine 1.24 Est GFR ( Amer) > 60 Est GFR (Non-Af Amer) 59 L Glucose 148 H Serum Osmolality Calcium 8.0 L Total Bilirubin 4.0 H AST 783 H ALT 309 H Alkaline Phosphatase 824 H Total Protein 5.1 L Albumin 2.8 L TSH 4.23 06/09/18 06/09/18 06/09/18 01:24 04:47 04:47 WBC 11.4 H RBC 3.86 L Hgb 10.5 L Hct 30.8 L MCV 80 MCH 27.1 MCHC 34.0 RDW 14.5 H Plt Count 145 L Seg Neutrophils % 78.7 H Lymphocytes % 12.1 L Monocytes % 8.9 Eosinophils % 0.1 Basophils % 0.2 Absolute Neutrophils 8.9 H Absolute Lymphocytes 1.4 Absolute Monocytes 1.0 Absolute Eosinophils 0.0 Absolute Basophils 0.0 Sodium 124.5 L 126.4 L Potassium 5.3 H 5.5 H Chloride 95 L 96 L Carbon Dioxide 20 L 19 L Anion Gap 10 11 BUN 50 H 53 H Creatinine 1.33 H 1.30 H Est GFR ( Amer) > 60 > 60 Est GFR (Non-Af Amer) 55 L 56 L Glucose 142 H 133 H Serum Osmolality Calcium 8.2 L 8.1 L Total Bilirubin 3.9 H AST 867 H ALT 341 H Alkaline Phosphatase 852 H Total Protein 5.5 L Albumin 2.9 L TSH 06/07/18 06/07/18 06/07/18 17:55 17:55 21:45 Creatine Kinase 150 CK-MB (CK-2) 4.49 Troponin I 0.018 0.018 06/08/18 02:50 Creatine Kinase 106 CK-MB (CK-2) Troponin I Impressions: Chest X-Ray 06/07/18 17:45 IMPRESSION: Essentially stable imaging appearance of the chest demonstrating multiple nodular densities bilaterally, most likely on the basis of metastatic disease. Head CT 06/07/18 19:30 IMPRESSION: No evidence of parenchymal mass or mass effect. Incidental finding of spheno-ethmoid sinusitis. EVIDENCE OF ACUTE STROKE: NO. Abdomen Ultrasound 06/07/18 21:02 IMPRESSION: Diffusely heterogeneous echotexture to the liver with multiple poorly defined masses consistent with metastases, also seen on prior CT. Sludge in the gallbladder lumen. Equivocal/trace of pericholecystic fluid. Small volume of ascites. Splenomegaly at 14 cm copyright 2011 [email or web address]- All Rights Reserved Head MRI 06/08/18 00:00 IMPRESSION: No metastases are present. Cannot exclude very limited white matter infarction in the left posterior frontal lobe. EVIDENCE OF ACUTE STROKE: NO. Assessment & Plan - Diagnosis (1) Metastatic cancer Is this a current diagnosis for this admission?: Yes Plan: Possible solid tumor mets vs lymphoma, would like excisional type bx, chest wall easily accessible, if general anesthesia not possible then bedside core needle should be done (2) CLL (chronic lymphoid leukemia) in relapse Is this a current diagnosis for this admission?: Yes Plan: Unsure if relapse, bx pending - Time Time Spent with patient: 35 or more minutes Disposition: Today had long discussion w/ sister and pt, spent >40m in discussion, they both would like to go forward w/ bx - Inpatient Certification Based on my medical assessment, after consideration of the patient's comorbidities, presenting symptoms, or acuity I expect that the services needed warrant INPATIENT care.: Yes I certify that my determination is in accordance with my understanding of Medicare's requirements for reasonable and necessary INPATIENT services [42 CFR 412.3e].: Yes Medical Necessity: Need For Continuous Telemetry Monitoring, Need for Pain Control, Need for Surgery
[2018-06-09 11:20] LABS: ANION GAP 11 (5-19); BLOOD UREA NITROGEN 57 mg/dL (7-20); CALCIUM 8.2 mg/dL (8.4-10.2); CARBON DIOXIDE 19 mmol/L (22-30); CHLORIDE 99 mmol/L (98-107); GLUCOSE 119 mg/dL (75-110); POTASSIUM 5.8 mmol/L (3.6-5.0); SODIUM 128.6 mmol/L (137-145)
--- NOTE | 2018-06-09 11:24 | PDOC PROGRESS REPORT ---
Subjective Progress Note for:: 06/09/18 Subjective:: 06/08/[id number]-alxw-old male with history of CLL and newly diagnosed metastatic disease involving the chest and abdomen came to the emergency room with sustained falls without any significant injury but complaining of right eyelid closure and left arm swelling. Initially he was found to be in altered mental status when I went to talk to him he is alert and oriented communicating well and able to tell me where he was he was able to tell me why he was here and he was able to tell me where he leaves and he is put his roommate and his wishes for full code. With that he has cancer with widespread metastasis involving the liver and lungs. No acute events since the admission. Show sodium is 116 it was improved to 120. Nephrology consult was requested surgical consult was done for elevated LFTs and I placed a consult for ophthalmology for right eyelid closure and visual problems and oncology consult was placed with Dr. Garcaí. She denies any complaints except for pain and he wants to eat his breakfast. 06/09/2018-no acute events in the last 24 hours. He was seen by the oncology nephrology. He has a severe ptosis of the right eye requested for ophthalmology consult. MRI of the brain negative for mass lesions in the brain. She does continue to complain of pain is getting morphine on regular basis and it may be causing the low blood pressures. He is a sodium level is gradually improving. Getting 3% normal saline infusions and feeding follow-up sodium levels to prevent any rapid correction of the sodium. Reason For Visit: HYPONATREMIA Physical Exam Vital Signs: Temp Pulse Resp BP Pulse Ox 97.6 F 121 H 20 85/64 L 97 06/09/18 07:51 06/09/18 07:51 06/09/18 07:51 06/09/18 07:51 06/09/18 03:00 Intake & Output 06/08/18 06/09/18 06/10/18 06:59 06:59 06:59 Intake Total 2050 2150 Output Total 700 925 Balance 1350 1225 Weight 61.689 kg 64.6 kg General appearance: PRESENT: no acute distress Head exam: PRESENT: atraumatic Eye exam: PRESENT: PERRLA, other - Right eye ptosis present Neck exam: ABSENT: carotid bruit, JVD, lymphadenopathy, thyromegaly Respiratory exam: PRESENT: clear to auscultation merritt. ABSENT: rales, rhonchi, wheezes Cardiovascular exam: PRESENT: RRR. ABSENT: diastolic murmur, rubs, systolic murmur GI/Abdominal exam: PRESENT: normal bowel sounds, soft. ABSENT: distended, guarding, mass, organolmegaly, rebound, tenderness Neurological exam: PRESENT: alert, oriented to person, oriented to place, oriented to time, oriented to situation, CN II-XII grossly intact Psychiatric exam: PRESENT: appropriate affect, normal mood. ABSENT: homicidal ideation, suicidal ideation Results Laboratory Results: 06/09/18 04:47 06/08/18 06/08/18 06/08/18 15:25 15:25 15:25 WBC RBC Hgb Hct MCV MCH MCHC RDW Plt Count Seg Neutrophils % Lymphocytes % Monocytes % Eosinophils % Basophils % Absolute Neutrophils Absolute Lymphocytes Absolute Monocytes Absolute Eosinophils Absolute Basophils Sodium 122.6 L Potassium 5.3 H Chloride 91 L Carbon Dioxide 17 L Anion Gap 15 BUN 48 H Creatinine 1.17 Est GFR ( Amer) > 60 Est GFR (Non-Af Amer) > 60 Glucose 137 H Serum Osmolality 272 L Calcium 8.0 L Total Bilirubin AST ALT Alkaline Phosphatase Total Protein Albumin TSH 4.23 06/08/18 06/09/18 06/09/18 21:50 01:24 01:24 WBC 12.7 H RBC 3.94 L Hgb 10.6 L Hct 31.3 L MCV 80 MCH 26.9 L MCHC 33.9 RDW 14.4 H Plt Count 143 L Seg Neutrophils % 78.9 H Lymphocytes % 11.6 L Monocytes % 9.2 Eosinophils % 0.1 Basophils % 0.2 Absolute Neutrophils 10.0 H Absolute Lymphocytes 1.5 Absolute Monocytes 1.2 Absolute Eosinophils 0.0 Absolute Basophils 0.0 Sodium 123.3 L 124.5 L Potassium 5.3 H 5.3 H Chloride 93 L 95 L Carbon Dioxide 19 L 20 L Anion Gap 11 10 BUN 49 H 50 H Creatinine 1.24 1.33 H Est GFR ( Amer) > 60 > 60 Est GFR (Non-Af Amer) 59 L 55 L Glucose 148 H 142 H Serum Osmolality Calcium 8.0 L 8.2 L Total Bilirubin 4.0 H 3.9 H AST 783 H 867 H ALT 309 H 341 H Alkaline Phosphatase 824 H 852 H Total Protein 5.1 L 5.5 L Albumin 2.8 L 2.9 L TSH 06/09/18 06/09/18 04:47 04:47 WBC 11.4 H RBC 3.86 L Hgb 10.5 L Hct 30.8 L MCV 80 MCH 27.1 MCHC 34.0 RDW 14.5 H Plt Count 145 L Seg Neutrophils % 78.7 H Lymphocytes % 12.1 L Monocytes % 8.9 Eosinophils % 0.1 Basophils % 0.2 Absolute Neutrophils 8.9 H Absolute Lymphocytes 1.4 Absolute Monocytes 1.0 Absolute Eosinophils 0.0 Absolute Basophils 0.0 Sodium 126.4 L Potassium 5.5 H Chloride 96 L Carbon Dioxide 19 L Anion Gap 11 BUN 53 H Creatinine 1.30 H Est GFR ( Amer) > 60 Est GFR (Non-Af Amer) 56 L Glucose 133 H Serum Osmolality Calcium 8.1 L Total Bilirubin AST ALT Alkaline Phosphatase Total Protein Albumin TSH 06/07/18 06/07/18 06/07/18 17:55 17:55 21:45 Creatine Kinase 150 CK-MB (CK-2) 4.49 Troponin I 0.018 0.018 06/08/18 02:50 Creatine Kinase 106 CK-MB (CK-2) Troponin I Impressions: Chest X-Ray 06/07/18 17:45 IMPRESSION: Essentially stable imaging appearance of the chest demonstrating multiple nodular densities bilaterally, most likely on the basis of metastatic disease. Head CT 06/07/18 19:30 IMPRESSION: No evidence of parenchymal mass or mass effect. Incidental finding of spheno-ethmoid sinusitis. EVIDENCE OF ACUTE STROKE: NO. Abdomen Ultrasound 06/07/18 21:02 IMPRESSION: Diffusely heterogeneous echotexture to the liver with multiple poorly defined masses consistent with metastases, also seen on prior CT. Sludge in the gallbladder lumen. Equivocal/trace of pericholecystic fluid. Small volume of ascites. Splenomegaly at 14 cm copyright 2011 [employer]- All Rights Reserved Head MRI 06/08/18 00:00 IMPRESSION: No metastases are present. Cannot exclude very limited white matter infarction in the left posterior frontal lobe. EVIDENCE OF ACUTE STROKE: NO. Assessment & Plan - Diagnosis (1) Metastatic cancer Is this a current diagnosis for this admission?: Yes Plan: 06/08/2018-patient has a CLL with widespread metastatic cancer. Consultation with oncology is requested. She is not on any chemo or radiation therapy at this moment. Because of the CLL extensive metastatic disease I am going to [facility] for hospice consult. 06/09/2018 patient has history of CLL with metastasis to the liver. Elevated liver enzymes. But there is no obstructive evidence of obstruction. Patient is waiting for the biopsy. Hospice consult was placed oncology consult was also requested. MRI of the brain negative for metastases to the brain. (2) Liver failure, acute Qualifiers: Hepatic coma status: without hepatic coma Qualified Code(s): K72.00 - Acute and subacute hepatic failure without coma Is this a current diagnosis for this admission?: Yes Plan: 06/08/2018 on examination of the abdomen enlarged liver palpable. Probably secondary to metastasis. Patient is not in liver failure. no Signs of icterus. 06/09/2018-patient has elevated LFTs secondary to metastatic disease. Ultrasound of the abdomen was done and negative for acute cholecystitis. The ultrasound shows enlarged liver with poorly defined metastatic lesions. No signs of icterus. And is to continue the present management. (3) Hyponatremia Is this a current diagnosis for this admission?: Yes Plan: 06/08/2018 admission sodium is 116. Improved to 120. Nephrology consult was placed for management of the hyponatremia. Patient is alert and awake communicating very well. Patient is not in fluid overload. He is denies any problems with urination. 2017 patient's admission sodium is around 116 and it was improved to 126 with 3% normal saline infusion. We are giving with the 3% normal saline with at most care to prevent any rapid correction of sodium. Dr. Aceves nephrology [facility] is on board. 0.8 cm may be secondary to SIADH. (4) Renal failure, acute Qualifiers: Acute renal failure type: unspecified Qualified Code(s): N17.9 - Acute kidney failure, unspecified Is this a current diagnosis for this admission?: Yes Plan: 06/08/2018 patient's admission creatinine is 2.01. It was improved to 1.36 with IV fluids. Acute renal failure may be secondary to poor oral intake. 06/09/2018-patient's admission creatinine is 2.0 and it was improved to 1.3 with IV fluids. We will continue to follow the patient regular basis. (5) Hyperkalemia Is this a current diagnosis for this admission?: Yes Plan: 06/08/2018 on admission patient potassium is 6.9 improved to 5.8. Patient denies any chest pains no EKG changes no EKG changes. Requested for a repeat CMP stat and order for Kayexalate 30 g every 12 hours, albuterol nebulizations for hyperkalemia. 06/09/2018 patient admission potassium is 6.9 and it was improved to 5.5 today. He is getting Kayexalate 30 mg p.o. every 12 hours. i also Order for albuterol nebulizations for hyperkalemia. We will continue to monitor the potassium levels. EKG shows no changes. (6) Vision changes Is this a current diagnosis for this admission?: Yes Plan: 06/08/2018 patient is complaining of visual changes for the last 10 days. Especially the right eye. I am going to request for ophthalmology consult. CT head was negative for metastatic lesions. Order for MRI of the brain. placed 06/09/2018-MRI of the brain was negative for mass lesion. Pupils are equal and react to light. Patient has severe ptosis on the right eye. Ophthalmology consult was requested. (7) Lymphadenopathy, axillary Is this a current diagnosis for this admission?: Yes Plan: 06/09/2018 patient has axillary lymph node enlargement. Secondary to CLL. Oncology on board. - Time Time Spent with patient: 15-24 minutes Medications reviewed and adjusted accordingly: Yes Anticipated discharge: Hospice
--- NOTE | 2018-06-09 12:07 | PDOC PROGRESS REPORT ---
Subjective Progress Note for:: 06/09/18 Reason For Visit: Patient seen today. Is currently being moved to the floor. He is awake and responding. Notes reviewed reveals that the patient was having moderate to severe pain of his left arm and shoulder and had had to be given multiple doses of morphine. He has a good friend by his bedside. Patient states the pain is relatively better now compared to earlier. He still has difficulty in word finding and memory. Labs and medications were reviewed with the patient. His latest sodium was 126. Physical Exam Vital Signs: Temp Pulse Resp BP Pulse Ox 97.6 F 113 H 18 93/59 L 97 06/09/18 11:15 06/09/18 11:15 06/09/18 11:15 06/09/18 11:15 06/09/18 11:15 Intake & Output 06/08/18 06/09/18 06/10/18 06:59 06:59 06:59 Intake Total 2050 2150 0 Output Total 700 925 75 Balance 1350 1225 -75 Weight 61.689 kg 64.6 kg General appearance: PRESENT: no acute distress Neck exam: PRESENT: lymphadenopathy - Affecting his left supraclavicular axillary and this extends into the anterior chest wall. Hard and tender. Respiratory exam: PRESENT: clear to auscultation merritt. ABSENT: crackles Cardiovascular exam: PRESENT: +S1, +S2 GI/Abdominal exam: PRESENT: distended, mass, normal bowel sounds, organomegaly - He had a four finger tender liver., soft, tenderness - Over the fourth finger enlarged liver. Spleen was enlarged but was nontender. Extremities exam: ABSENT: pedal edema Neurological exam: PRESENT: alert, awake, oriented to person, oriented to place, motor sensory deficit. ABSENT: oriented to situation Skin exam: ABSENT: erythema, mottled, rash Results Laboratory Results: 06/09/18 04:47 06/09/18 10:55 06/08/18 06/08/18 06/08/18 15:25 15:25 15:25 WBC RBC Hgb Hct MCV MCH MCHC RDW Plt Count Seg Neutrophils % Lymphocytes % Monocytes % Eosinophils % Basophils % Absolute Neutrophils Absolute Lymphocytes Absolute Monocytes Absolute Eosinophils Absolute Basophils Sodium 122.6 L Potassium 5.3 H Chloride 91 L Carbon Dioxide 17 L Anion Gap 15 BUN 48 H Creatinine 1.17 Est GFR ( Amer) > 60 Est GFR (Non-Af Amer) > 60 Glucose 137 H Serum Osmolality 272 L Calcium 8.0 L Total Bilirubin AST ALT Alkaline Phosphatase Total Protein Albumin TSH 4.23 06/08/18 06/09/18 06/09/18 21:50 01:24 01:24 WBC 12.7 H RBC 3.94 L Hgb 10.6 L Hct 31.3 L MCV 80 MCH 26.9 L MCHC 33.9 RDW 14.4 H Plt Count 143 L Seg Neutrophils % 78.9 H Lymphocytes % 11.6 L Monocytes % 9.2 Eosinophils % 0.1 Basophils % 0.2 Absolute Neutrophils 10.0 H Absolute Lymphocytes 1.5 Absolute Monocytes 1.2 Absolute Eosinophils 0.0 Absolute Basophils 0.0 Sodium 123.3 L 124.5 L Potassium 5.3 H 5.3 H Chloride 93 L 95 L Carbon Dioxide 19 L 20 L Anion Gap 11 10 BUN 49 H 50 H Creatinine 1.24 1.33 H Est GFR ( Amer) > 60 > 60 Est GFR (Non-Af Amer) 59 L 55 L Glucose 148 H 142 H Serum Osmolality Calcium 8.0 L 8.2 L Total Bilirubin 4.0 H 3.9 H AST 783 H 867 H ALT 309 H 341 H Alkaline Phosphatase 824 H 852 H Total Protein 5.1 L 5.5 L Albumin 2.8 L 2.9 L TSH 06/09/18 06/09/18 06/09/18 04:47 04:47 10:55 WBC 11.4 H RBC 3.86 L Hgb 10.5 L Hct 30.8 L MCV 80 MCH 27.1 MCHC 34.0 RDW 14.5 H Plt Count 145 L Seg Neutrophils % 78.7 H Lymphocytes % 12.1 L Monocytes % 8.9 Eosinophils % 0.1 Basophils % 0.2 Absolute Neutrophils 8.9 H Absolute Lymphocytes 1.4 Absolute Monocytes 1.0 Absolute Eosinophils 0.0 Absolute Basophils 0.0 Sodium 126.4 L 128.6 L Potassium 5.5 H 5.8 H Chloride 96 L 99 Carbon Dioxide 19 L 19 L Anion Gap 11 11 BUN 53 H 57 H Creatinine 1.30 H 1.45 H Est GFR ( Amer) > 60 > 60 Est GFR (Non-Af Amer) 56 L 49 L Glucose 133 H 119 H Serum Osmolality Calcium 8.1 L 8.2 L Total Bilirubin AST ALT Alkaline Phosphatase Total Protein Albumin TSH 06/07/18 06/07/18 06/07/18 17:55 17:55 21:45 Creatine Kinase 150 CK-MB (CK-2) 4.49 Troponin I 0.018 0.018 06/08/18 02:50 Creatine Kinase 106 CK-MB (CK-2) Troponin I Impressions: Chest X-Ray 06/07/18 17:45 IMPRESSION: Essentially stable imaging appearance of the chest demonstrating multiple nodular densities bilaterally, most likely on the basis of metastatic disease. Head CT 06/07/18 19:30 IMPRESSION: No evidence of parenchymal mass or mass effect. Incidental finding of spheno-ethmoid sinusitis. EVIDENCE OF ACUTE STROKE: NO. Abdomen Ultrasound 06/07/18 21:02 IMPRESSION: Diffusely heterogeneous echotexture to the liver with multiple poorly defined masses consistent with metastases, also seen on prior CT. Sludge in the gallbladder lumen. Equivocal/trace of pericholecystic fluid. Small volume of ascites. Splenomegaly at 14 cm copyright 2011 [employer]- All Rights Reserved Head MRI 06/08/18 00:00 IMPRESSION: No metastases are present. Cannot exclude very limited white matter infarction in the left posterior frontal lobe. EVIDENCE OF ACUTE STROKE: NO. Assessment & Plan - Diagnosis (1) Acute hyponatremia Plan: Latest sodium is 128 around 11:00 this morning. Continue on just normal saline as of now. Monitor. (2) Weakness of left side of body Plan: Unsure of exact etiology. Negative MRI of the brain yesterday for any mass lesion or vascular incidents. Could be related to his hyponatremia. See if any response to correction of his hyponatremia. Differentials includes mass lesion/paraneoplastic syndromes. Monitor. (3) Hepatosplenomegaly Plan: Probably combination of underlying liver cirrhosis with metastatic lesions. (4) Hyperkalemia Is this a current diagnosis for this admission?: Yes Plan: Being addressed with SPS. Monitor. (5) Liver failure, acute Qualifiers: Hepatic coma status: without hepatic coma Qualified Code(s): K72.00 - Acute and subacute hepatic failure without coma Is this a current diagnosis for this admission?: Yes Plan: Probably underlying liver cirrhosis with known metastatic lesions. (6) Metastatic cancer Is this a current diagnosis for this admission?: Yes Plan: As per heme oncology. (7) Renal failure, acute Qualifiers: Acute renal failure type: unspecified Qualified Code(s): N17.9 - Acute kidney failure, unspecified Is this a current diagnosis for this admission?: Yes Plan: Stable. Nonoliguric. Monitor. (8) Vision changes Is this a current diagnosis for this admission?: Yes Plan: Ptosis of the right eye with the stationary I. Recommend neurological consultation. (9) Lymphadenopathy, axillary Is this a current diagnosis for this admission?: Yes Plan: With extension to the anterior chest wall as well as supraclavicular lymph nod es. As per surgery and heme oncology. (10) Hypotension Plan: Mild. Likely from his multiple doses of morphine. Monitor.
[2018-06-09 17:22] LABS: ANION GAP 8 (5-19); BLOOD UREA NITROGEN 58 mg/dL (7-20); CARBON DIOXIDE 19 mmol/L (22-30); CHLORIDE 101 mmol/L (98-107); GLUCOSE 143 mg/dL (75-110); POTASSIUM 5.7 mmol/L (3.6-5.0); SODIUM 128.2 mmol/L (137-145)
[2018-06-09 20:24] LABS: ANION GAP 11 (5-19); BLOOD UREA NITROGEN 58 mg/dL (7-20); CALCIUM 8.1 mg/dL (8.4-10.2); CARBON DIOXIDE 17 mmol/L (22-30); CHLORIDE 100 mmol/L (98-107); GLUCOSE 136 mg/dL (75-110); POTASSIUM 5.8 mmol/L (3.6-5.0)
[2018-06-09 20:32] LABS: ALANINE AMINOTRANSFERASE 550 U/L (21-72); ALBUMIN 2.6 g/dL (3.5-5.0); ALKALINE PHOSPHATASE 832 U/L (38-126); BILIRUBIN,DIRECT 3.9 mg/dL (0.0-0.4); BILIRUBIN,TOTAL 4.4 mg/dL (0.2-1.3); TOTAL PROTEIN 4.8 g/dL (6.3-8.2)
[2018-06-09 20:51] LABS: ASPARTATE AMINO TRANSFERASE 1582 U/L (17-59)
--- NOTE | 2018-06-10 00:32 | PDOC PROGRESS REPORT ---
Subjective Progress Note for:: 06/09/18 Subjective:: This is a 63-year-old male with a history of CLL. The patient has new lesions throughout the thorax, abdomen, and on the exterior chest wall. The patient has new onset right-sided facial droop and ptosis. The patient denies chest pain, shortness of breath, fevers, chills, nausea, vomiting, abdominal pain, melena, hematochezia, hematemesis, headache. He does report weakness, blurry vision, and malaise. Reason For Visit: HYPONATREMIA Physical Exam Vital Signs: Temp Pulse Resp BP Pulse Ox 97.3 F 118 H 12 87/56 L 99 06/09/18 23:57 06/09/18 23:57 06/09/18 23:57 06/09/18 23:57 06/09/18 23:57 Intake & Output 06/08/18 06/09/18 06/10/18 06:59 06:59 06:59 Intake Total 2050 2150 1150 Output Total 700 925 250 Balance 1350 1225 900 Weight 61.689 kg 64.6 kg General appearance: PRESENT: mild distress Head exam: PRESENT: atraumatic Eye exam: PRESENT: other - Right eye ptosis Mouth exam: PRESENT: neck supple Neck exam: ABSENT: tenderness, thyromegaly, tracheal deviation Respiratory exam: PRESENT: other - Chest wall nodule in the left infraclavicular region Cardiovascular exam: PRESENT: RRR Pulses: PRESENT: normal radial pulses Vascular exam: PRESENT: pallor GI/Abdominal exam: PRESENT: soft. ABSENT: distended, tenderness Extremities exam: ABSENT: clubbing Musculoskeletal exam: ABSENT: deformity Neurological exam: PRESENT: alert, awake, oriented to person, oriented to place, oriented to time, oriented to situation Psychiatric exam: ABSENT: agitated, anxious Focused psych exam: ABSENT: delusional Skin exam: ABSENT: cyanosis, erythema, jaundice Results Laboratory Results: 06/09/18 04:47 06/09/18 19:55 06/09/18 06/09/18 06/09/18 01:24 01:24 04:47 WBC 12.7 H 11.4 H RBC 3.94 L 3.86 L Hgb 10.6 L 10.5 L Hct 31.3 L 30.8 L MCV 80 80 MCH 26.9 L 27.1 MCHC 33.9 34.0 RDW 14.4 H 14.5 H Plt Count 143 L 145 L Seg Neutrophils % 78.9 H 78.7 H Lymphocytes % 11.6 L 12.1 L Monocytes % 9.2 8.9 Eosinophils % 0.1 0.1 Basophils % 0.2 0.2 Absolute Neutrophils 10.0 H 8.9 H Absolute Lymphocytes 1.5 1.4 Absolute Monocytes 1.2 1.0 Absolute Eosinophils 0.0 0.0 Absolute Basophils 0.0 0.0 Sodium 124.5 L Potassium 5.3 H Chloride 95 L Carbon Dioxide 20 L Anion Gap 10 BUN 50 H Creatinine 1.33 H Est GFR ( Amer) > 60 Est GFR (Non-Af Amer) 55 L Glucose 142 H Calcium 8.2 L Total Bilirubin 3.9 H AST 867 H ALT 341 H Alkaline Phosphatase 852 H Total Protein 5.5 L Albumin 2.9 L 06/09/18 06/09/18 06/09/18 04:47 10:55 16:58 WBC RBC Hgb Hct MCV MCH MCHC RDW Plt Count Seg Neutrophils % Lymphocytes % Monocytes % Eosinophils % Basophils % Absolute Neutrophils Absolute Lymphocytes Absolute Monocytes Absolute Eosinophils Absolute Basophils Sodium 126.4 L 128.6 L 128.2 L Potassium 5.5 H 5.8 H 5.7 H Chloride 96 L 99 101 Carbon Dioxide 19 L 19 L 19 L Anion Gap 11 11 8 BUN 53 H 57 H 58 H Creatinine 1.30 H 1.45 H 1.54 H Est GFR ( Amer) > 60 > 60 56 L Est GFR (Non-Af Amer) 56 L 49 L 46 L Glucose 133 H 119 H 143 H Calcium 8.1 L 8.2 L 8.0 L Total Bilirubin AST ALT Alkaline Phosphatase Total Protein Albumin 06/09/18 06/09/18 19:55 19:55 WBC RBC Hgb Hct MCV MCH MCHC RDW Plt Count Seg Neutrophils % Lymphocytes % Monocytes % Eosinophils % Basophils % Absolute Neutrophils Absolute Lymphocytes Absolute Monocytes Absolute Eosinophils Absolute Basophils Sodium 128.0 L Potassium 5.8 H Chloride 100 Carbon Dioxide 17 L Anion Gap 11 BUN 58 H Creatinine 1.57 H Est GFR ( Amer) 55 L Est GFR (Non-Af Amer) 45 L Glucose 136 H Calcium 8.1 L Total Bilirubin 4.4 H AST 1582 H ALT 550 H Alkaline Phosphatase 832 H Total Protein 4.8 L Albumin 2.6 L 06/07/18 06/07/18 06/07/18 17:55 17:55 21:45 Creatine Kinase 150 CK-MB (CK-2) 4.49 Troponin I 0.018 0.018 06/08/18 02:50 Creatine Kinase 106 CK-MB (CK-2) Troponin I Impressions: Chest X-Ray 06/07/18 17:45 IMPRESSION: Essentially stable imaging appearance of the chest demonstrating multiple nodular densities bilaterally, most likely on the basis of metastatic disease. Head CT 06/07/18 19:30 IMPRESSION: No evidence of parenchymal mass or mass effect. Incidental finding of spheno-ethmoid sinusitis. EVIDENCE OF ACUTE STROKE: NO. Abdomen Ultrasound 06/07/18 21:02 IMPRESSION: Diffusely heterogeneous echotexture to the liver with multiple poorly defined masses consistent with metastases, also seen on prior CT. Sludge in the gallbladder lumen. Equivocal/trace of pericholecystic fluid. Small volume of ascites. Splenomegaly at 14 cm copyright 2011 [employer]- All Rights Reserved Head MRI 06/08/18 00:00 IMPRESSION: No metastases are present. Cannot exclude very limited white matter infarction in the left posterior frontal lobe. EVIDENCE OF ACUTE STROKE: NO. Assessment & Plan - Diagnosis (1) CLL (chronic lymphoid leukemia) in relapse Is this a current diagnosis for this admission?: Yes (2) Metastatic cancer Is this a current diagnosis for this admission?: Yes - Plan Summary Plan Summary: This is a 63-year-old male with new onset lesions throughout the thorax and abdomen. Surgery has been consulted for biopsy of the left chest wall lesion. This will help determine if the patient is suffering from progression of his CLL versus metastatic carcinoma. This will greatly affect his treatment options. I have discussed the case with Dr. García. A long discussion was held with the patient and his family. They have chosen biopsy, in order to secure a diagnosis. We will plan for open biopsy tomorrow (06/10/2018).
[2018-06-10] MEDS: MORPHINE SULFATE 10 MG/ML INJ IV PRN ×2 (01:42→06:01)
[2018-06-10] MEDS: NORMAL SALINE 1000 ML 1,000 ML IV PRN ×2 (08:30→13:34)
[2018-06-10] MEDS: DOCUSATE SODIUM 100 MG CAPSULE PO SCH ×2 (09:02→17:20)
[2018-06-10] MEDS: SODIUM POLYSTYRENE SULFONATE 15 GM/60 ML PO SCH ×3 (09:02→23:35)
[2018-06-10] MEDS ORDERED: PROPOFOL INJ 200 MG/20 ML VIAL IV ONE (09:37)
[2018-06-10] MEDS ORDERED: FENTANYL CITRATE INJ/PF 100 MCG/2 ML AMPUL ONE (09:37)
[2018-06-10] MEDS ORDERED: MIDAZOLAM 2 MG/2 ML INJ ONE (09:37)
[2018-06-10] MEDS ORDERED: KETAMINE HCL INJ 500 MG/10 ML VIAL ONE (09:37)
[2018-06-10] MEDS ORDERED: LIDOCAINE 1% INJ-PF (10 MG/ML) 30 ML SDV ONE (09:53)
[2018-06-10 10:19] LABS: ALANINE AMINOTRANSFERASE 607 U/L (21-72); ALBUMIN 2.4 g/dL (3.5-5.0); ALKALINE PHOSPHATASE 767 U/L (38-126); ANION GAP 12 (5-19); BILIRUBIN,DIRECT 3.9 mg/dL (0.0-0.4); BILIRUBIN,TOTAL 4.4 mg/dL (0.2-1.3); BLOOD UREA NITROGEN 65 mg/dL (7-20); CALCIUM 7.8 mg/dL (8.4-10.2); CARBON DIOXIDE 16 mmol/L (22-30); CHLORIDE 102 mmol/L (98-107); GLUCOSE 109 mg/dL (75-110); SODIUM 130.3 mmol/L (137-145); TOTAL PROTEIN 4.8 g/dL (6.3-8.2)
--- NOTE | 2018-06-10 10:48 | Operative Report ---
Operative Report DATE OF SURGERY: 06/10/18 PREOPERATIVE DIAGNOSIS: Metastatic malignancy; history of CLL POSTOPERATIVE DIAGNOSIS: Same with massive left axillary and chest wall metastasis OPERATION: Open excisional biopsy of left chest wall tumor SURGEON: WILLIAM SANTIAGO ANESTHESIA: LMAC TISSUE REMOVED OR ALTERED: Portions of necrotic tumor left chest wall COMPLICATIONS: None ESTIMATED BLOOD LOSS: Scant INTRAOPERATIVE FINDINGS: See below PROCEDURE: Patient was taken to the preop holding area with a left chest wall was marked, sedated with LMAC anesthesia and left chest wall prepped and draped sterile fashion. Patient remained hemodynamically stable with adequate saturations. Surgical plan and surgical timeout were conducted. The massive left lateral chest wall and axillary tumor was readily appreciated. We elected to proceed with open excisional biopsy of tumor on the anterior chest wall because of its accessibility, and absence of neovascularity of the skin. The skin was anesthetized with 1% plain lidocaine. A 2-1/2 cm incision was made with a knife, subcutaneous tissue divided, and the pectoralis major muscle fibers divided. We then encountered a very thin pseudocapsule overlying tumor. The tumor was spongy and essentially necrotic. There was a thin pseudocapsule. A portion of the pseudocapsule, and debrided portions of the tumor removed with the pinky finger. All fragments sent to pathology in a fresh specimen cup without formaldehyde. Hemostasis was achieved with gentle compression. The wound closed in layers with Vicryl suture including the pectoralis muscle, subcutaneous tissue; skin closed with 4-0 Ethilon suture benzoin Steri-Strips and a compression dressing applied. Patient tolerated the procedure well, recovery room in stable condition. Recommendations: 1. Leave the dressing on for 48 hours; 2. Follow-up with [facility] 2 weeks for suture removal
[2018-06-10] MEDS ORDERED: SODIUM POLYSTYRENE SULFONATE 15 GM/60 ML PO SCH (11:00)
[2018-06-10] MEDS ORDERED: CALCIUM GLUCONATE 1000 MG/10 ML INJ IV ONE (11:03)
[2018-06-10] MEDS ORDERED: INSULIN REG, HUMAN 100 UNIT/ML 3 ML VIAL (PYX) ONE (11:05)
[2018-06-10] MEDS ORDERED: DEXTROSE 50%-WATER 25 GM/50 ML DISP.SYRIN IV ONE (11:06)
[2018-06-10 11:13] LABS: HEMATOCRIT 30.3 % (37.9-51.0); HEMOGLOBIN 10.1 g/dL (13.5-17.0); MEAN CORPUSCULAR HGB CONC 33.3 g/dL (32.0-36.0); MEAN CORPUSCULAR VOLUME 81 fl (80-97); PLATELET COUNT 202 10^3/uL (150-450); RED BLOOD COUNT 3.74 10^6/uL (4.35-5.55); RED CELL DISTRIBUTION WIDTH 14.7 % (11.5-14.0); WHITE BLOOD COUNT 14.1 10^3/uL (4.0-10.5)
--- NOTE | 2018-06-10 11:21 | PDOC PROGRESS REPORT ---
Subjective Progress Note for:: 06/10/18 Subjective:: [id number]-ewkl-old male with history of CLL and newly diagnosed metastatic disease involving the chest and abdomen came to the emergency room with sustained falls without any significant injury but complaining of right eyelid closure and left arm swelling. Initially he was found to be in altered mental status when I went to talk to him he is alert and oriented communicating well and able to tell me where he was he was able to tell me why he was here and he was able to tell me where he leaves and he is put his roommate and his wishes for full code. With that he has cancer with widespread metastasis involving the liver and lungs. No acute events since the admission. Show sodium is 116 it was improved to 120. Nephrology consult was requested surgical consult was done for elevated LFTs and I placed a consult for ophthalmology for right eyelid closure and visual problems and oncology consult was placed with Dr. García. She denies any complaints except for pain and he wants to eat his breakfast. 06/09/2018-no acute events in the last 24 hours. He was seen by the oncology nephrology. He has a severe ptosis of the right eye requested for ophthalmology consult. MRI of the brain negative for mass lesions in the brain. She does continue to complain of pain is getting morphine on regular basis and it may be causing the low blood pressures. He is a sodium level is gradually improving. Getting 3% normal saline infusions and feeding follow-up sodium levels to prevent any rapid correction of the sodium. 06/10/2018-patient went for the biopsy today. He has a left axillary/chest wall metastasis. Biopsy was done without any complications and I spoke to Dr. Simmons he thinks is a necrotic tissue. Had a long discussion with the patie nt's daughter and they understood the poor prognosis the have a meeting with the oncologist Dr. Bright around 5 PM today and they are going to make a decision to go for palliative care are not. In the meantime the requested to continue the present management. Patient is still hypotensive despite getting normal saline at 150 cc/h. Reason For Visit: HYPONATREMIA Physical Exam Vital Signs: Temp Pulse Resp BP Pulse Ox 97.3 F 112 H 12 87/56 L 99 06/10/18 09:11 06/10/18 09:11 06/10/18 09:11 06/10/18 09:11 06/10/18 09:11 Intake & Output 06/09/18 06/10/18 06/11/18 06:59 06:59 06:59 Intake Total 2150 1150 1000 Output Total 925 323 Balance 2475 407 0057 Weight 64.6 kg General appearance: PRESENT: mild distress Head exam: PRESENT: atraumatic Eye exam: PRESENT: PERRLA, other - Right eyelid ptosis. Neck exam: PRESENT: lymphadenopathy, other - Patient has massive left axillary metastatic lesion.. ABSENT: carotid bruit, JVD, thyromegaly Respiratory exam: PRESENT: clear to auscultation merritt. ABSENT: rales, rhonchi, wheezes Cardiovascular exam: PRESENT: RRR. ABSENT: diastolic murmur, rubs, systolic murmur GI/Abdominal exam: PRESENT: normal bowel sounds, soft. ABSENT: distended, gua rding, mass, organolmegaly, rebound, tenderness Neurological exam: PRESENT: alert, awake, oriented to person, oriented to place, oriented to time, oriented to situation, CN II-XII grossly intact. ABSENT: motor sensory deficit Psychiatric exam: PRESENT: appropriate affect, normal mood. ABSENT: homicidal ideation, suicidal ideation Results Laboratory Results: 06/10/18 09:17 06/09/18 06/09/18 06/09/18 10:55 16:58 19:55 Sodium 128.6 L 128.2 L Potassium 5.8 H 5.7 H Chloride 99 101 Carbon Dioxide 19 L 19 L Anion Gap 11 8 BUN 57 H 58 H Creatinine 1.45 H 1.54 H Est GFR ( Amer) > 60 56 L Est GFR (Non-Af Amer) 49 L 46 L Glucose 119 H 143 H Calcium 8.2 L 8.0 L Total Bilirubin 4.4 H AST 1582 H ALT 550 H Alkaline Phosphatase 832 H Total Protein 4.8 L Albumin 2.6 L 06/09/18 06/10/18 19:55 09:17 Sodium 128.0 L 130.3 L Potassium 5.8 H 6.0 H* Chloride 100 102 Carbon Dioxide 17 L 16 L Anion Gap 11 12 BUN 58 H 65 H Creatinine 1.57 H 2.00 H Est GFR ( Amer) 55 L 41 L Est GFR (Non-Af Amer) 45 L 34 L Glucose 136 H 109 Calcium 8.1 L 7.8 L Total Bilirubin 4.4 H AST > 1500 H ALT 607 H Alkaline Phosphatase 767 H Total Protein 4.8 L Albumin 2.4 L 06/07/18 06/07/18 06/07/18 17:55 17:55 21:45 Creatine Kinase 150 CK-MB (CK-2) 4.49 Troponin I 0.018 0.018 06/08/18 02:50 Creatine Kinase 106 CK-MB (CK-2) Troponin I Impressions: Chest X-Ray 06/07/18 17:45 IMPRESSION: Essentially stable imaging appearance of the chest demonstrating multiple nodular densities bilaterally, most likely on the basis of metastatic disease. Head CT 06/07/18 19:30 IMPRESSION: No evidence of parenchymal mass or mass effect. Incidental finding of spheno-ethmoid sinusitis. EVIDENCE OF ACUTE STROKE: NO. Abdomen Ultrasound 06/07/18 21:02 IMPRESSION: Diffusely heterogeneous echotexture to the liver with multiple poorly defined masses consistent with metastases, also seen on prior CT. Sludge in the gallbladder lumen. Equivocal/trace of pericholecystic fluid. Small volume of ascites. Splenomegaly at 14 cm copyright 2011 [employer]- All Rights Reserved Head MRI 06/08/18 00:00 IMPRESSION: No metastases are present. Cannot exclude very limited white matter infarction in the left posterior frontal lobe. EVIDENCE OF ACUTE STROKE: NO. Assessment & Plan - Diagnosis (1) Metastatic cancer Is this a current diagnosis for this admission?: Yes Plan: 06/08/2018-patient has a CLL with widespread metastatic cancer. Consultation with oncology is requested. She is not on any chemo or radiation therapy at this moment. Because of the CLL extensive metastatic disease I am going to request for hospice consult. 06/09/2018 patient has history of CLL with metastasis to the liver. Elevated liver enzymes. But there is no obstructive evidence of obstruction. Patient is waiting for the biopsy. Hospice consult was placed oncology consult was also requested. MRI of the brain negative for metastases to the brain. 06/10/2018-patient has CLL with metastatic lesions in the liver associated with hepatosplenomegaly. He may have underlying liver cirrhosis. Massive left axillary lymph node mass. Status post biopsy today. Dr. Simmons told him is an apparent necrotic tissue. Overall prognosis poor. Family is aware of the overall poor prognosis. Family is going to meet with Dr. Bright around 5 PM today to discuss further management. (2) Liver failure, acute Qualifiers: Hepatic coma status: without hepatic coma Qualified Code(s): K72.00 - Acute and subacute hepatic failure without coma Is this a current diagnosis for this admission?: Yes Plan: 06/08/2018 on examination of the abdomen enlarged liver palpable. Probably s econdary to metastasis. Patient is not in liver failure. no Signs of icterus. 06/09/2018-patient has elevated LFTs secondary to metastatic disease. Ultrasound of the abdomen was done and negative for acute cholecystitis. The ultrasound shows enlarged liver with poorly defined metastatic lesions. No signs of icterus. And is to continue the present management. 06/10/2018-patient has elevated LFTs-ultrasound of the abdomen was negative for acute cholecystitis but shows enlarged liver with metastatic lesions and he has also history of alcohol use probably underlying cirrhosis is present. His spleen was also enlarged. Plan is to continue the present management. (3) Hyponatremia Is this a current diagnosis for this admission?: Yes Plan: 06/08/2018 admission sodium is 116. Improved to 120. Nephrology consult was pl aced for management of the hyponatremia. Patient is alert and awake communicating very well. Patient is not in fluid overload. He is denies any problems with urination. 06/09 2018 patient's admission sodium is around 116 and it was improved to 126 with 3% normal saline infusion. We are giving with the 3% normal saline with at most care to prevent any rapid correction of sodium. Dr. Aceves nephrology hydro station operator is on board. 0.8 cm may be secondary to SIADH. 06/10/2018-sodium is improved to 130 with 3% normal saline push. But his creatinine is continued to go up worsened from 1.6-2.0. Also worsened from 5.8- 6.0. Be going to give calcium gluconate 2 g IV, regular insulin 6 units subcu with 1 amp of dextrose. Patient is on also albuterol nebulizations and Kayexalate 30 g p.o. every 6 hours. If the patient is unable to tolerate the p.o. Kayexalate I am going to give kayexylate enema (4) Renal failure, acute Qualifiers: Acute renal failure type: unspecified Qualified Code(s): N17.9 - Acute kidney failure, unspecified Is this a current diagnosis for this admission?: Yes Plan: 06/08/2018 patient's admission creatinine is 2.01. It was improved to 1.36 with IV fluids. Acute renal failure may be secondary to poor oral intake. 06/09/2018-patient's admission creatinine is 2.0 and it was improved to 1.3 with IV fluids. We will continue to follow the patient regular basis. 06/10/2018 patient is on normal saline at 150 cc/h. Creatinine is worsened from 1.6-2.0. Nephrology team is on board. It can be due to CLL involving the kidneys. Going to order for the kidney ultrasound. (5) Hyperkalemia Is this a current diagnosis for this admission?: Yes Plan: 06/08/2018 on admission patient potassium is 6.9 improved to 5.8. Patient denies any chest pains no EKG changes no EKG changes. Requested for a repeat CMP stat and order for Kayexalate 30 g every 12 hours, albuterol nebulizations for hyperkalemia. 06/09/2018 patient admission potassium is 6.9 and it was improved to 5.5 today. He is getting Kayexalate 30 mg p.o. every 12 hours. i also Order for albuterol nebulizations for hyperkalemia. We will continue to monitor the potassium levels. EKG shows no changes. 06/10/2018 patient is potassium is continued to creep up it was 6.0 today. It may be due to tumor lysis syndrome. He is getting Kayexalate p.o. And albuterol nebulizations. Today we are going to give Calcium gluconate 2 g IV 1 dose, insulin 6 units subcu along with 1 amp of dextrose. And is also going to get Kayexalate 30 g p.o. every 6 hours. I am going to recheck the potassium around 6 PM today. (6) Vision changes Is this a current diagnosis for this admission?: Yes (7) Lymphadenopathy, axillary Is this a current diagnosis for this admission?: Yes Plan: 06/09/2018 patient has axillary lymph node enlargement. Secondary to CLL. Oncology on board. 06/10/2018 patient has massive left axillary/chest wall metastasis status post biopsy today Dr. Simmons told me is a necrotic tissue. Overall prognosis poor. Condition is critical. Family is aware of the poor condition. - Time Time Spent with patient: 35 or more minutes Medications reviewed and adjusted accordingly: Yes Anticipated discharge: Hospice
[2018-06-10 11:33] LABS: ABSOLUTE LYMPHOCYTES# (MANUAL) 1.3 10^3/uL (0.5-4.7); ABSOLUTE NEUTROPHILS# (MANUAL) 11.8 10^3/uL (1.7-8.2); BAND NEUTROPHILS % (MANUAL) 4 % (3-5); BASOPHILS % (MANUAL) 0 % (0-2); EOSINOPHILS % (MANUAL) 0 % (0-6); LYMPHOCYTES % (MANUAL) 9 % (13-45); MONOCYTES % (MANUAL) 7 % (3-13); PLATELET COMMENT ADEQUATE; POLYCHROMASIA SLIGHT; SEGMENTED NEUTROPHILS % (MAN) 80 % (42-78); TOTAL CELLS COUNTED 100; TOXIC GRANULATION 1+
[2018-06-10 12:36] LABS: ASPARTATE AMINO TRANSFERASE 1823 U/L (17-59)
[2018-06-10] MEDS ORDERED: LORAZEPAM INJ 2 MG/1 ML VIAL ONE (17:57)
--- NOTE | 2018-06-10 18:23 | PDOC PROGRESS REPORT ---
Subjective Progress Note for:: 06/10/18 Subjective:: Patient complains of dry mouth and abdominal cramping. He underwent biopsy earlier today. Nurses report that he has been given kayexelate and has not yet had BM. He has been having some hallucinations and has remained pleasantly confused. He is still alert and talkative and makes sense at times. Reason For Visit: HYPONATREMIA Physical Exam Vital Signs: Temp Pulse Resp BP Pulse Ox 97.7 F 116 H 20 86/59 L 98 06/10/18 15:22 06/10/18 15:22 06/10/18 15:22 06/10/18 15:22 06/10/18 15:22 Intake & Output 06/09/18 06/10/18 06/11/18 06:59 06:59 06:59 Intake Total 2150 1150 2473 Output Total 925 323 185 Balance 3721 316 0936 Weight 64.6 kg General appearance: PRESENT: no acute distress Head exam: PRESENT: normocephalic Mouth exam: PRESENT: dry mucosa Respiratory exam: PRESENT: unlabored GI/Abdominal exam: PRESENT: soft, tenderness Extremities exam: PRESENT: other - Edema left arm. Mass in axilla remains. Neurological exam: PRESENT: awake, other - Right eye lid droop Psychiatric exam: PRESENT: appropriate affect Skin exam: PRESENT: pallor Results Laboratory Results: 06/10/18 09:17 06/10/18 09:17 06/09/18 06/09/18 06/10/18 19:55 19:55 09:17 WBC RBC Hgb Hct MCV MCH MCHC RDW Plt Count Seg Neutrophils % Lymphocytes % Monocytes % Eosinophils % Basophils % Absolute Neutrophils Absolute Lymphocytes Absolute Monocytes Absolute Eosinophils Absolute Basophils Sodium 128.0 L 130.3 L Potassium 5.8 H 6.0 H* Chloride 100 102 Carbon Dioxide 17 L 16 L Anion Gap 11 12 BUN 58 H 65 H Creatinine 1.57 H 2.00 H Est GFR ( Amer) 55 L 41 L Est GFR (Non-Af Amer) 45 L 34 L Glucose 136 H 109 Calcium 8.1 L 7.8 L Total Bilirubin 4.4 H 4.4 H AST 1582 H 1823 H ALT 550 H 607 H Alkaline Phosphatase 832 H 767 H Total Protein 4.8 L 4.8 L Albumin 2.6 L 2.4 L 06/10/18 09:17 WBC 14.1 H RBC 3.74 L Hgb 10.1 L Hct 30.3 L MCV 81 MCH 27.0 MCHC 33.3 RDW 14.7 H Plt Count 202 Seg Neutrophils % Not Reportable Lymphocytes % Not Reportable Monocytes % Not Reportable Eosinophils % Not Reportable Basophils % Not Reportable Absolute Neutrophils Not Reportable Absolute Lymphocytes Not Reportable Absolute Monocytes Not Reportable Absolute Eosinophils Not Reportable Absolute Basophils Not Reportable Sodium Potassium Chloride Carbon Dioxide Anion Gap BUN Creatinine Est GFR ( Amer) Est GFR (Non-Af Amer) Glucose Calcium Total Bilirubin AST ALT Alkaline Phosphatase Total Protein Albumin 06/07/18 06/07/18 06/07/18 17:55 17:55 21:45 Creatine Kinase 150 CK-MB (CK-2) 4.49 Troponin I 0.018 0.018 06/08/18 02:50 Creatine Kinase 106 CK-MB (CK-2) Troponin I Impressions: Chest X-Ray 06/07/18 17:45 IMPRESSION: Essentially stable imaging appearance of the chest demonstrating mu ltiple nodular densities bilaterally, most likely on the basis of metastatic disease. Head CT 06/07/18 19:30 IMPRESSION: No evidence of parenchymal mass or mass effect. Incidental finding of spheno-ethmoid sinusitis. EVIDENCE OF ACUTE STROKE: NO. Abdomen Ultrasound 06/07/18 21:02 IMPRESSION: Diffusely heterogeneous echotexture to the liver with multiple poorly defined masses consistent with metastases, also seen on prior CT. Sludge in the gallbladder lumen. Equivocal/trace of pericholecystic fluid. Small volume of ascites. Splenomegaly at 14 cm copyright 2011 [employer]- All Rights Reserved Head MRI 06/08/18 00:00 IMPRESSION: No metastases are present. Cannot exclude very limited white matter infarction in the left posterior frontal lobe. EVIDENCE OF ACUTE STROKE: NO. Status: Image reviewed by me Assessment & Plan - Diagnosis (1) Lymphadenopathy, axillary Is this a current diagnosis for this admission?: Yes Plan: with CT consistent with mets in the lungs, liver, and lymph nodes. This is not consistent with CLL, but may be a transformed lymphoma. metastatic carcinoma is more likely based on severity of symptoms. Await pathology report from biopsy today. (2) Liver failure, acute Qualifiers: Hepatic coma status: without hepatic coma Qualified Code(s): K72.00 - Acute and subacute hepatic failure without coma Is this a current diagnosis for this admission?: Yes Plan: I will check ammonia level in am. He also has long history of alcohol according to family. (3) Hyperkalemia Is this a current diagnosis for this admission?: Yes Plan: May be due to tumor lysis. Agree with IV fluids and kayexalate. Will continue to monitor. - Time Time Spent with patient: 35 or more minutes Disposition: I spent over 60 minutes with patient and family in consultation. - Plan Summary Plan Summary: I had a long discussion this evening with patient and had a separate family meeting. We discussed all diagnoses thus far and the fact that survival for any length of time is not likely. However, patient continues to remain full code for now. Once pathology report is known, then further recommendation can be made. If this is metastatic carcinoma, and his liver and kidney function continue to deteriorate, then no treatment will be possible. Only if this is a lymphoma and his kidneys and liver stabilize will any treatment be possible. Patient and family understand this. I will be available for anything, if need ed. Please call me with any concerns.
[2018-06-11] MEDS: LORAZEPAM INJ 2 MG/1 ML VIAL IV PRN ×4 (00:04→20:31)
[2018-06-11] MEDS: MORPHINE SULFATE 10 MG/ML INJ IV PRN ×7 (01:36→20:31)
[2018-06-11] MEDS: SODIUM POLYSTYRENE SULFONATE 15 GM/60 ML PO SCH ×2 (06:18→07:21)
[2018-06-11 06:27] LABS: HEMATOCRIT 27.9 % (37.9-51.0); HEMOGLOBIN 9.4 g/dL (13.5-17.0); MEAN CORPUSCULAR HEMOGLOBIN 27.1 pg (27.0-33.4); MEAN CORPUSCULAR HGB CONC 33.6 g/dL (32.0-36.0); MEAN CORPUSCULAR VOLUME 81 fl (80-97); PLATELET COUNT 187 10^3/uL (150-450); RED BLOOD COUNT 3.46 10^6/uL (4.35-5.55); RED CELL DISTRIBUTION WIDTH 14.9 % (11.5-14.0)
[2018-06-11 06:57] LABS: ABSOLUTE MONOCYTES # (MANUAL) 1.6 10^3/uL (0.1-1.4); ABSOLUTE NEUTROPHILS# (MANUAL) 10.4 10^3/uL (1.7-8.2); BAND NEUTROPHILS % (MANUAL) 5 % (3-5); BASOPHILS % (MANUAL) 0 % (0-2); EOSINOPHILS % (MANUAL) 0 % (0-6); LYMPHOCYTES % (MANUAL) 8 % (13-45); MONOCYTES % (MANUAL) 12 % (3-13); SEGMENTED NEUTROPHILS % (MAN) 75 % (42-78); TOTAL CELLS COUNTED 100
[2018-06-11 06:59] LABS: OVALOCYTES SLIGHT; PLATELET COMMENT ADEQUATE; POIKILOCYTOSIS SLIGHT; POLYCHROMASIA SLIGHT
[2018-06-11 07:06] LABS: ALANINE AMINOTRANSFERASE 548 U/L (21-72); ALBUMIN 2.2 g/dL (3.5-5.0); ALKALINE PHOSPHATASE 681 U/L (38-126); ANION GAP 11 (5-19); BILIRUBIN,DIRECT 4.1 mg/dL (0.0-0.4); BILIRUBIN,TOTAL 4.7 mg/dL (0.2-1.3); BLOOD UREA NITROGEN 72 mg/dL (7-20); CALCIUM 7.9 mg/dL (8.4-10.2); CARBON DIOXIDE 15 mmol/L (22-30); CHLORIDE 103 mmol/L (98-107); GLUCOSE 96 mg/dL (75-110); POTASSIUM 5.1 mmol/L (3.6-5.0); SODIUM 128.8 mmol/L (137-145); TOTAL PROTEIN 4.5 g/dL (6.3-8.2)
[2018-06-11 07:42] LABS: ASPARTATE AMINO TRANSFERASE 1705 U/L (17-59)
--- NOTE | 2018-06-11 07:50 | PDOC PROGRESS REPORT ---
Subjective Progress Note for:: 06/11/18 Subjective:: patient resting comfortably. Still complains of some abdominal pain. ROS: No dyspnea. No BMs. Reason For Visit: HYPONATREMIA Physical Exam Vital Signs: Temp Pulse Resp BP Pulse Ox 98.1 F 123 H 20 89/59 L 96 06/11/18 03:26 06/11/18 07:00 06/11/18 03:26 06/11/18 03:26 06/10/18 23:58 Intake & Output 06/10/18 06/11/18 06/12/18 06:59 06:59 06:59 Intake Total 1150 3073 Output Total 323 535 Balance 827 2538 Weight 70.1 kg General appearance: PRESENT: thin Mouth exam: PRESENT: dry mucosa Respiratory exam: PRESENT: unlabored GI/Abdominal exam: PRESENT: hypoactive bowel sounds, soft, tenderness Neurological exam: PRESENT: awake Psychiatric exam: PRESENT: appropriate affect Skin exam: PRESENT: pallor Results Laboratory Results: 06/11/18 06:07 06/11/18 06:07 06/10/18 06/10/18 06/10/18 09:17 09:17 18:13 WBC 14.1 H RBC 3.74 L Hgb 10.1 L Hct 30.3 L MCV 81 MCH 27.0 MCHC 33.3 RDW 14.7 H Plt Count 202 Seg Neutrophils % Not Reportable Lymphocytes % Not Reportable Monocytes % Not Reportable Eosinophils % Not Reportable Basophils % Not Reportable Absolute Neutrophils Not Reportable Absolute Lymphocytes Not Reportable Absolute Monocytes Not Reportable Absolute Eosinophils Not Reportable Absolute Basophils Not Reportable Sodium 130.3 L Potassium 6.0 H* 5.1 H Chloride 102 Carbon Dioxide 16 L Anion Gap 12 BUN 65 H Creatinine 2.00 H Est GFR ( Amer) 41 L Est GFR (Non-Af Amer) 34 L Glucose 109 Calcium 7.8 L Magnesium Total Bilirubin 4.4 H AST 1823 H ALT 607 H Alkaline Phosphatase 767 H Ammonia Total Protein 4.8 L Albumin 2.4 L 06/11/18 06/11/18 06/11/18 06:07 06:07 06:07 WBC 13.0 H RBC 3.46 L Hgb 9.4 L Hct 27.9 L MCV 81 MCH 27.1 MCHC 33.6 RDW 14.9 H Plt Count 187 Seg Neutrophils % Not Reportable Lymphocytes % Not Reportable Monocytes % Not Reportable Eosinophils % Not Reportable Basophils % Not Reportable Absolute Neutrophils Not Reportable Absolute Lymphocytes Not Reportable Absolute Monocytes Not Reportable Absolute Eosinophils Not Reportable Absolute Basophils Not Reportable Sodium 128.8 L Potassium 5.1 H Chloride 103 Carbon Dioxide 15 L Anion Gap 11 BUN 72 H Creatinine 1.90 H Est GFR ( Amer) 44 L Est GFR (Non-Af Amer) 36 L Glucose 96 Calcium 7.9 L Magnesium 2.6 H Total Bilirubin 4.7 H AST 1705 H ALT 548 H Alkaline Phosphatase 681 H Ammonia 34.0 H Total Protein 4.5 L Albumin 2.2 L 06/07/18 06/07/18 06/07/18 17:55 17:55 21:45 Creatine Kinase 150 CK-MB (CK-2) 4.49 Troponin I 0.018 0.018 06/08/18 02:50 Creatine Kinase 106 CK-MB (CK-2) Troponin I Impressions: Chest X-Ray 06/07/18 17:45 IMPRESSION: Essentially stable imaging appearance of the chest demonstrating multiple nodular densities bilaterally, most likely on the basis of metastatic disease. Head CT 06/07/18 19:30 IMPRESSION: No evidence of parenchymal mass or mass effect. Incidental finding of spheno-ethmoid sinusitis. EVIDENCE OF ACUTE STROKE: NO. Abdomen Ultrasound 06/07/18 21:02 IMPRESSION: Diffusely heterogeneous echotexture to the liver with multiple poorly defined masses consistent with metastases, also seen on prior CT. Sludge in the gallbladder lumen. Equivocal/trace of pericholecystic fluid. Small volume of ascites. Splenomegaly at 14 cm copyright 2011 [employer]- All Rights Reserved Head MRI 06/08/18 00:00 IMPRESSION: No metastases are present. Cannot exclude very limited white m atter infarction in the left posterior frontal lobe. EVIDENCE OF ACUTE STROKE: NO. Assessment & Plan - Diagnosis (1) Lymphadenopathy, axillary Is this a current diagnosis for this admission?: Yes Plan: Await pathology report. (2) Liver failure, acute Qualifiers: Hepatic coma status: without hepatic coma Qualified Code(s): K72.00 - Acute and subacute hepatic failure without coma Is this a current diagnosis for this admission?: Yes Plan: Hepato-renal failure. Currently fairly stable. His ammonia and potassium are both high. Agree with continued medical management. (3) Hyperkalemia Is this a current diagnosis for this admission?: Yes - Plan Summary Plan Summary: Will continue supportive care until pathology report is known. Patient again remains full code. Patient and family aware that patient may not survive the week.
--- NOTE | 2018-06-11 08:34 | RADIOLOGY REPORT (SQ) ---
EXAM DESCRIPTION: [facility] COMPLETED DATE/TIME: 06/10/2018 8:39 pm REASON FOR STUDY: acute renal failure COMPARISON: None. TECHNIQUE: Dynamic and static grayscale images acquired of the kidneys and bladder and recorded on P ACS. Additional selected color Doppler and spectral images recorded. LIMITATIONS: None. FINDINGS: RIGHT KIDNEY: Normal size. Normal echogenicity. No solid or suspicious masses. No h ydronephrosis. No calcifications. LEFT KIDNEY: Normal size. Normal echogenicity. No solid or suspicious masses. No hydronephrosi s. No calcifications. BLADDER: Nunn catheter. OTHER FINDINGS: Ascites. Liver masses. IMPRESSION: No hydronephrosis. Decompressed bladder. TECHNICAL DOCUMENTATION: JOB ID: [id number] [employer]- All Rights Reserved Reading location - IP/workstation name: [email or web address]
[2018-06-11] MEDS: DOCUSATE SODIUM 100 MG CAPSULE PO SCH ×2 (09:33→17:23)
--- NOTE | 2018-06-11 11:18 | PDOC PROGRESS REPORT ---
Subjective Progress Note for:: 06/11/18 Reason For Visit: Patient seen today. He is quite drowsy. Is difficult to arouse him and is not able to keep any sustained responses. He denies any history of chest pain or shortness of breath. He is hardly eating or drinking according to discussions done with the treating nurse. Labs and medications were reviewed. He has had a biopsy of his mass that is come back as metastatic carcinoma. Physical Exam Vital Signs: Temp Pulse Resp BP Pulse Ox 98.6 F 121 H 14 85/56 L 94 06/11/18 07:46 06/11/18 07:46 06/11/18 07:46 06/11/18 07:46 06/11/18 07:46 Intake & Output 06/10/18 06/11/18 06/12/18 06:59 06:59 06:59 Intake Total 1150 3073 Output Total 323 535 Balance 827 2538 Weight 70.1 kg General appearance: PRESENT: disheveled Exam: Is quite lethargic and poorly responding to questions unless you shake him vi gorously. Respiratory exam: PRESENT: clear to auscultation merritt, crackles, decreased breath sounds Cardiovascular exam: PRESENT: +S1, +S2 GI/Abdominal exam: PRESENT: distended, mass, normal bowel sounds, organomegaly - He had a four finger tender liver., soft, tenderness - Over the fourth finger enlarged liver. Spleen was enlarged but was nontender. Extremities exam: PRESENT: pedal edema Neurological exam: PRESENT: altered Results Laboratory Results: 06/11/18 06:07 06/11/18 06:07 06/10/18 06/10/18 06/10/18 09:17 09:17 18:13 WBC 14.1 H RBC 3.74 L Hgb 10.1 L Hct 30.3 L MCV 81 MCH 27.0 MCHC 33.3 RDW 14.7 H Plt Count 202 Seg Neutrophils % Not Reportable Lymphocytes % Not Reportable Monocytes % Not Reportable Eosinophils % Not Reportable Basophils % Not Reportable Absolute Neutrophils Not Reportable Absolute Lymphocytes Not Reportable Absolute Monocytes Not Reportable Absolute Eosinophils Not Reportable Absolute Basophils Not Reportable Sodium Potassium 5.1 H Chloride Carbon Dioxide Anion Gap BUN Creatinine Est GFR ( Amer) Est GFR (Non-Af Amer) Glucose Calcium Magnesium Total Bilirubin AST 1823 H ALT Alkaline Phosphatase Ammonia Total Protein Albumin 06/11/18 06/11/18 06/11/18 06:07 06:07 06:07 WBC 13.0 H RBC 3.46 L Hgb 9.4 L Hct 27.9 L MCV 81 MCH 27.1 MCHC 33.6 RDW 14.9 H Plt Count 187 Seg Neutrophils % Not Reportable Lymphocytes % Not Reportable Monocytes % Not Reportable Eosinophils % Not Reportable Basophils % Not Reportable Absolute Neutrophils Not Reportable Absolute Lymphocytes Not Reportable Absolute Monocytes Not Reportable Absolute Eosinophils Not Reportable Absolute Basophils Not Reportable Sodium 128.8 L Potassium 5.1 H Chloride 103 Carbon Dioxide 15 L Anion Gap 11 BUN 72 H Creatinine 1.90 H Est GFR ( Amer) 44 L Est GFR (Non-Af Amer) 36 L Glucose 96 Calcium 7.9 L Magnesium 2.6 H Total Bilirubin 4.7 H AST 1705 H ALT 548 H Alkaline Phosphatase 681 H Ammonia 34.0 H Total Protein 4.5 L Albumin 2.2 L 06/07/18 06/07/18 06/07/18 17:55 17:55 21:45 Creatine Kinase 150 CK-MB (CK-2) 4.49 Troponin I 0.018 0.018 06/08/18 02:50 Creatine Kinase 106 CK-MB (CK-2) Troponin I Impressions: Chest X-Ray 06/07/18 17:45 IMPRESSION: Essentially stable imaging appearance of the chest demonstrating multiple nodular densities bilaterally, most likely on the basis of metastatic disease. Head CT 06/07/18 19:30 IMPRESSION: No evidence of parenchymal mass or mass effect. Incidental finding of spheno-ethmoid sinusitis. EVIDENCE OF ACUTE STROKE: NO. Abdomen Ultrasound 06/07/18 21:02 IMPRESSION: Diffusely heterogeneous echotexture to the liver with multiple poorly defined masses consistent with metastases, also seen on prior CT. Sludge in the gallbladder lumen. Equivocal/trace of pericholecystic fluid. Small volume of ascites. Splenomegaly at 14 cm copyright 2011 [employer]- All Rights Reserved Head MRI 06/08/18 00:00 IMPRESSION: No metastases are present. Cannot exclude very limited white matter infarction in the left posterior frontal lobe. EVIDENCE OF ACUTE STROKE: NO. Renal Ultrasound 06/10/18 00:00 IMPRESSION: No hydronephrosis. Decompressed bladder. Assessment & Plan - Diagnosis (1) Acute hyponatremia Plan: Latest sodium is 128.Currently he looks like he has reached end-stage in his cancer diagnosis and I would recommend comfort care. I believe heme oncologist has discussed this with the family and they are in the process of making a decision Monitor. (2) Weakness of left side of body Plan: Unsure of exact etiology. Negative MRI of the brain yesterday for any mass lesion or vascular incidents. Could be related to his hyponatremia. See if any response to correction of his hyponatremia. Differentials includes mass lesion/paraneoplastic syndromes. Monitor. (3) Hepatosplenomegaly Plan: Probably combination of underlying liver cirrhosis with metastatic lesions. (4) Hyperkalemia Is this a current diagnosis for this admission?: Yes Plan: Presently stable. (5) Liver failure, acute Qualifiers: Hepatic coma status: without hepatic coma Qualified Code(s): K72.00 - Acute and subacute hepatic failure without coma Is this a current diagnosis for this admission?: Yes Plan: Probably underlying liver cirrhosis with known metastatic lesions. (6) Metastatic cancer Is this a current diagnosis for this admission?: Yes Plan: Biopsy confirms the same. Unfortunately very poor prognosis.As per heme onc ology. (7) Renal failure, acute Qualifiers: Acute renal failure type: unspecified Qualified Code(s): N17.9 - Acute kidney failure, unspecified Is this a current diagnosis for this admission?: Yes Plan: Stable. Nonoliguric. Monitor. (8) Vision changes Is this a current diagnosis for this admission?: Yes (9) Lymphadenopathy, axillary Is this a current diagnosis for this admission?: Yes Plan: With extension to the anterior chest wall as well as supraclavicular lymph nodes. As per surgery and heme oncology. (10) Hypotension Plan: Probably multifactorial. As per hospitalist and heme oncology.Monitor.
--- NOTE | 2018-06-11 11:47 | PDOC PROGRESS REPORT ---
Subjective Progress Note for:: 06/09/18 Subjective:: 06[birth year]08[birth year][id number]-hezf-old male with history of CLL and newly diagnosed metastatic disease involving the chest and abdomen came to the emergency room with sustained falls without any significant injury but complaining of right eyelid closure and left arm swelling. Initially he was found to be in altered mental status when I went to talk to him he is alert and oriented communicating well and able to tell me where he was he was able to tell me why he was here and he was able to tell me where he leaves and he is put his roommate and his wishes for full code. With that he has cancer with widespread metastasis involving the liver and lungs. No acute events since the admission. Show sodium is 116 it was improved to 120. Nephrology consult was requested surgical consult was done for elevated LFTs and I placed a consult for ophthalmology for right eyelid closure and visual problems and oncology consult was placed with Dr. García. She denies any complaints except for pain and he wants to eat his breakfast. 06/09/2018-no acute events in the last 24 hours. He was seen by the oncology nephrology. He has a severe ptosis of the right eye requested for ophthalmology consult. MRI of the brain negative for mass lesions in the brain. She does continue to complain of pain is getting morphine on regular basis and it may be causing the low blood pressures. He is a sodium level is gradually improving. Getting 3% normal saline infusions and feeding follow-up sodium levels to prevent any rapid correction of the sodium. 06/10/2018-patient went for the biopsy today. He has a left axillary/chest wall metastasis. Biopsy was done without any complications and I spoke to Dr. Simmons he thinks is a necrotic tissue. Had a long discussion with the patie nt's daughter and they understood the poor prognosis the have a meeting with the oncologist Dr. Merida around 5 PM today and they are going to make a decision to go for palliative care are not. In the meantime the requested to continue the present management. Patient is still hypotensive despite getting normal saline at 150 cc/h. 06/11/2018-patient is less responsive and drowsy, and is not eating and drinking enough as per the nurse environmental compliance officer. When I try to talk to him he acknowledged that he is in pain. Thus the only response I got from his pain. His blood pressures blood are lower side with tachycardia. Systolic blood pressures in the 80s. Prognosis poor condition is critical. The biopsy report came back as metastatic carcinoma. Heme oncologist Dr. MERIDA spoke to the family recommended comfort care. Reason For Visit: HYPONATREMIA Physical Exam Vital Signs: Temp Pulse Resp BP Pulse Ox 98.6 F 121 H 14 85/56 L 94 06/11/18 07:46 06/11/18 07:46 06/11/18 07:46 06/11/18 07:46 06/11/18 07:46 Intake & Output 06/10/18 06/11/18 06/12/18 06:59 06:59 06:59 Intake Total 1150 3073 Output Total 323 535 Balance 827 2538 Weight 70.1 kg General appearance: PRESENT: no acute distress Head exam: PRESENT: atraumatic Eye exam: PRESENT: PERRLA Neck exam: PRESENT: JVD Respiratory exam: PRESENT: decreased breath sounds Cardiovascular exam: PRESENT: tachycardia GI/Abdominal exam: PRESENT: normal bowel sounds, soft. ABSENT: tenderness Neurological exam: PRESENT: awake, CN II-XII grossly intact. ABSENT: motor sensory deficit Results Laboratory Results: 06/11/18 06:07 06/11/18 06:07 06/10/18 06/10/18 06/11/18 09:17 18:13 06:07 WBC RBC Hgb Hct MCV MCH MCHC RDW Plt Count Seg Neutrophils % Lymphocytes % Monocytes % Eosinophils % Basophils % Absolute Neutrophils Absolute Lymphocytes Absolute Monocytes Absolute Eosinophils Absolute Basophils Sodium 128.8 L Potassium 5.1 H 5.1 H Chloride 103 Carbon Dioxide 15 L Anion Gap 11 BUN 72 H Creatinine 1.90 H Est GFR ( Amer) 44 L Est GFR (Non-Af Amer) 36 L Glucose 96 Calcium 7.9 L Magnesium 2.6 H Total Bilirubin 4.7 H AST 1823 H 1705 H ALT 548 H Alkaline Phosphatase 681 H Ammonia Total Protein 4.5 L Albumin 2.2 L 06/11/18 06/11/18 06:07 06:07 WBC 13.0 H RBC 3.46 L Hgb 9.4 L Hct 27.9 L MCV 81 MCH 27.1 MCHC 33.6 RDW 14.9 H Plt Count 187 Seg Neutrophils % Not Reportable Lymphocytes % Not Reportable Monocytes % Not Reportable Eosinophils % Not Reportable Basophils % Not Reportable Absolute Neutrophils Not Reportable Absolute Lymphocytes Not Reportable Absolute Monocytes Not Reportable Absolute Eosinophils Not Reportable Absolute Basophils Not Reportable Sodium Potassium Chloride Carbon Dioxide Anion Gap BUN Creatinine Est GFR ( Amer) Est GFR (Non-Af Amer) Glucose Calcium Magnesium Total Bilirubin AST ALT Alkaline Phosphatase Ammonia 34.0 H Total Protein Albumin 06/07/18 06/07/18 06/07/18 17:55 17:55 21:45 Creatine Kinase 150 CK-MB (CK-2) 4.49 Troponin I 0.018 0.018 06/08/18 02:50 Creatine Kinase 106 CK-MB (CK-2) Troponin I Impressions: Chest X-Ray 06/07/18 17:45 IMPRESSION: Essentially stable imaging appearance of the chest demonstrating multiple nodular densities bilaterally, most likely on the basis of metastatic disease. Head CT 06/07/18 19:30 IMPRESSION: No evidence of parenchymal mass or mass effect. Incidental finding of spheno-ethmoid sinusitis. EVIDENCE OF ACUTE STROKE: NO. Abdomen Ultrasound 06/07/18 21:02 IMPRESSION: Diffusely heterogeneous echotexture to the liver with multiple poorly defined masses consistent with metastases, also seen on prior CT. Sludge in the gallbladder lumen. Equivocal/trace of pericholecystic fluid. Small volume of ascites. Splenomegaly at 14 cm copyright 2011 [employer]- All Rights Reserved Head MRI 06/08/18 00:00 IMPRESSION: No metastases are present. Cannot exclude very limited white matter infarction in the left posterior frontal lobe. EVIDENCE OF ACUTE STROKE: NO. Renal Ultrasound 06/10/18 00:00 IMPRESSION: No hydronephrosis. Decompressed bladder. Assessment & Plan - Diagnosis (1) Metastatic cancer Is this a current diagnosis for this admission?: Yes Plan: 06/08/2018-patient has a CLL with widespread metastatic cancer. Consultation with oncology is requested. She is not on any chemo or radiation therapy at this moment. Because of the CLL extensive metastatic disease I am going to request for hospice consult. 06/09/2018 patient has history of CLL with metastasis to the liver. Elevated liver enzymes. But there is no obstructive evidence of obstruction. Patient is waiting for the biopsy. Hospice consult was placed oncology consult was also requested. MRI of the brain negative for metastases to the brain. 06/10/2018-patient has CLL with metastatic lesions in the liver associated with hepatosplenomegaly. He may have underlying liver cirrhosis. Massive left axillary lymph node mass. Status post biopsy today. Dr. Simmons told him is an apparent necrotic tissue. Overall prognosis poor. Family is aware of the overall poor prognosis. Family is going to meet with Dr. Merida around 5 PM today to discuss further management. 06/11/2018-the biopsy from the left axilla came back as a metastatic carcinoma. Heme oncologist Dr. Merida spoke to the family members and recommended comfort care. I spoke to the patient's daughter Radha just a minute ago and she is waiting for the other family members to come in and she is going to let me know further plans. Meantime will he is going to be full code. Prognosis poor condition is critical. (2) Liver failure, acute Qualifiers: Hepatic coma status: without hepatic coma Qualified Code(s): K72.00 - Acute and subacute hepatic failure without coma Is this a current diagnosis for this admission?: Yes Plan: 06/08/2018 on examination of the abdomen enlarged liver palpable. Probably secondary to metastasis. Patient is not in liver failure. no Signs of icterus. 06/09/2018-patient has elevated LFTs secondary to metastatic disease. Ultrasound of the abdomen was done and negative for acute cholecystitis. The ultrasound shows enlarged liver with poorly defined metastatic lesions. No signs of icterus. And is to continue the present management. 06/10/2018-patient has elevated LFTs-ultrasound of the abdomen was negative for acute cholecystitis but shows enlarged liver with metastatic lesions and he has also history of alcohol use probably underlying cirrhosis is present. His spleen was also enlarged. Plan is to continue the present management. 06/11/2018 patient's LFTs are going up. He has hepatosplenomegaly. He has underlying liver cirrhosis along with hepatic lesions. (3) Hyponatremia Is this a current diagnosis for this admission?: Yes Plan: 06/08/2018 admission sodium is 116. Improved to 120. Nephrology consult was placed for management of the hyponatremia. Patient is alert and awake communicating very well. Patient is not in fluid overload. He is denies any problems with urination. 06/09 2018 patient's admission sodium is around 116 and it was improved to 126 with 3% normal saline infusion. We are giving with the 3% normal saline with at most care to prevent any rapid correction of sodium. Dr. Aceves nephrology environmental compliance officer is on board. 0.8 cm may be secondary to SIADH. 06/10/2018-sodium is improved to 130 with 3% normal saline push. But his creatinine is continued to go up worsened from 1.6-2.0. Also worsened from 5.8- 6.0. Be going to give calcium gluconate 2 g IV, regular insulin 6 units subcu with 1 amp of dextrose. Patient is on also albuterol nebulizations and Kayexalate 30 g p.o. every 6 hours. If the patient is unable to tolerate the p.o. Kayexalate I am going to give kayexylate enema 06/11/2018-serum sodium is 128. This hyponatremia may be causing the neurological symptoms. Because patient is getting into fluid overload with JVD and worsening respirations to stop the IV fluids yesterday. Test for the chest x-ray and BNP today. We could closely follow the patient regular basis. (4) Renal failure, acute Qualifiers: Acute renal failure type: unspecified Qualified Code(s): N17.9 - Acute kidney failure, unspecified Is this a current diagnosis for this admission?: Yes Plan: 06/08/2018 patient's admission creatinine is 2.01. It was improved to 1.36 with IV fluids. Acute renal failure may be secondary to poor oral intake. 06/09/2018-patient's admission creatinine is 2.0 and it was improved to 1.3 with IV fluids. We will continue to follow the patient regular basis. 06/10/2018 patient is on normal saline at 150 cc/h. Creatinine is worsened from 1.6-2.0. Nephrology team is on board. It can be due to CLL involving the kidneys. Going to order for the kidney ultrasound. 06/11/2018-the creatinine today is 1.9. Stable. He is off the IV fluids. Renal ultrasound is negative for hydronephrosis. (5) Hyperkalemia Is this a current diagnosis for this admission?: Yes Plan: 06/08/2018 on admission patient potassium is 6.9 improved to 5.8. Patient denies any chest pains no EKG changes no EKG changes. Requested for a repeat CMP stat and order for Kayexalate 30 g every 12 hours, albuterol nebulizations for hyperkalemia. 06/09/2018 patient admission potassium is 6.9 and it was improved to 5.5 today. He is getting Kayexalate 30 mg p.o. every 12 hours. i also Order for albuterol nebulizations for hyperkalemia. We will continue to monitor the potassium levels. EKG shows no changes. 06/10/2018 patient is potassium is continued to creep up it was 6.0 today. It may be due to tumor lysis syndrome. He is getting Kayexalate p.o. And albuterol nebulizations. Today we are going to give Calcium gluconate 2 g IV 1 dose, insulin 6 units subcu along with 1 amp of dextrose. And is also going to get Kayexalate 30 g p.o. every 6 hours. I am going to recheck the potassium around 6 PM today. 06/11/2018 repeat potassium yesterday evening is 5.1 and this morning is 5.1 also. Plan is to continue the present management. (6) Vision changes Is this a current diagnosis for this admission?: Yes (7) Lymphadenopathy, axillary Is this a current diagnosis for this admission?: Yes Plan: 06/09/2018 patient has axillary lymph node enlargement. Secondary to CLL. Oncology on board. 06/10/2018 patient has massive left axillary/chest wall metastasis status post biopsy today Dr. Simmons told me is a necrotic tissue. Overall prognosis poor. Condition is critical. Family is aware of the poor condition. 06/11/2018-the left axillary mass with metastasis to the anterior chest all sta tus post biopsy yesterday and the report came back as metastatic carcinoma. We waiting for the family dictation. At that time he is going to be full code. Plan to the daughter that his blood pressures are low who is tachycardic he is this definitely change in his mental status she says she understood but she was told the family members to come in before taking a final decision about hospice. - Time Time Spent with patient: 25-34 minutes Medications reviewed and adjusted accordingly: Yes Anticipated discharge: Hospice
[2018-06-11] MEDS ORDERED: PIPERACILLIN/TAZOBACTAM 3.375 GM VIAL IV SCH (12:00)
[2018-06-11] MEDS ORDERED: LORAZEPAM INJ 2 MG/1 ML VIAL ONE (14:57)
[2018-06-12 01:12] VITALS: BP 88/52
[2018-06-12] MEDS: MORPHINE SULFATE 10 MG/ML INJ IV PRN ×5 (01:53→14:48)
[2018-06-12 07:40] LABS: HEPATITIS A AB IGM Negative (Negative); HEPATITIS B CORE AB IGM Negative (Negative); HEPATITS B SURFACE ANTIGEN Negative (Negative)
[2018-06-12] MEDS: LORAZEPAM INJ 2 MG/1 ML VIAL IV PRN ×3 (07:53→16:07)
--- NOTE | 2018-06-12 08:20 | PDOC PROGRESS REPORT ---
Subjective Progress Note for:: 06/12/18 Subjective:: Patient sleeping peacefully. Daughter at bedside. She reports some rattled breathing but only discomfort when he is repositioned. Some periods of apnea. Reason For Visit: HYPONATREMIA Physical Exam Vital Signs: Temp Pulse Resp BP Pulse Ox 99.5 F 111 H 11 L 88/52 L 93 06/11/18 20:00 06/12/18 02:00 06/11/18 20:00 06/11/18 20:00 06/11/18 20:00 Intake & Output 06/11/18 06/12/18 06/13/18 06:59 06:59 06:59 Intake Total 4073 0 Output Total 535 100 Balance 3538 -100 Weight 70.1 kg General appearance: PRESENT: no acute distress Mouth exam: PRESENT: dry mucosa Respiratory exam: PRESENT: other - rattled breathing. Skin exam: PRESENT: pallor Results Laboratory Results: 06/11/18 06:07 06/11/18 06:07 06/07/18 06/07/18 06/07/18 17:55 17:55 21:45 Creatine Kinase 150 CK-MB (CK-2) 4.49 Troponin I 0.018 0.018 06/08/18 02:50 Creatine Kinase 106 CK-MB (CK-2) Troponin I Impressions: Chest X-Ray 06/07/18 17:45 IMPRESSION: Essentially stable imaging appearance of the chest demonstrating multiple nodular densities bilaterally, most likely on the basis of metastatic disease. Head CT 06/07/18 19:30 IMPRESSION: No evidence of parenchymal mass or mass effect. Incidental finding of spheno-ethmoid sinusitis. EVIDENCE OF ACUTE STROKE: NO. Abdomen Ultrasound 06/07/18 21:02 IMPRESSION: Diffusely heterogeneous echotexture to the liver with multiple poorly defined masses consistent with metastases, also seen on prior CT. Sludge in the gallbladder lumen. Equivocal/trace of pericholecystic fluid. Small volume of ascites. Splenomegaly at 14 cm copyright 2011 [employer]- All Rights Reserved Head MRI 06/08/18 00:00 IMPRESSION: No metastases are present. Cannot exclude very limited white matter infarction in the left posterior frontal lobe. EVIDENCE OF ACUTE STROKE: NO. Renal Ultrasound 06/10/18 00:00 IMPRESSION: No hydronephrosis. Decompressed bladder. Assessment & Plan - Diagnosis (1) Lymphadenopathy, axillary Is this a current diagnosis for this admission?: Yes (2) Liver failure, acute Qualifiers: Hepatic coma status: without hepatic coma Qualified Code(s): K72.00 - Acute and subacute hepatic failure without coma Is this a current diagnosis for this admission?: Yes (3) Hyperkalemia Is this a current diagnosis for this admission?: Yes - Plan Summary Plan Summary: Final pathology report shows metastatic malignant melanoma. I have explained to the patient and family that comfort measures only are recommended, as he is too ill for aggressive chemotherapy, which would not cure this anyway. Family is in agreement with comfort measures. I do not believe patient will survive for more than a few days. Will continue to follow and be available by phone if needed.
--- NOTE | 2018-06-12 11:21 | PDOC PROGRESS REPORT ---
Subjective Progress Note for:: 06/12/18 Subjective:: [id number]-phqw-old male with history of CLL and newly diagnosed metastatic disease involving the chest and abdomen came to the emergency room with sustained falls without any significant injury but complaining of right eyelid closure and left arm swelling. Initially he was found to be in altered mental status when I went to talk to him he is alert and oriented communicating well and able to tell me where he was he was able to tell me why he was here and he was able to tell me where he leaves and he is put his roommate and his wishes for full code. With that he has cancer with widespread metastasis involving the liver and lungs. No acute events since the admission. Show sodium is 116 it was improved to 120. Nephrology consult was requested surgical consult was done for elevated LFTs and I placed a consult for ophthalmology for right eyelid closure and visual problems and oncology consult was placed with Dr. García. She denies any complaints except for pain and he wants to eat his breakfast. 06/09/2018-no acute events in the last 24 hours. He was seen by the oncology nephrology. He has a severe ptosis of the right eye requested for ophthalmology consult. MRI of the brain negative for mass lesions in the brain. She does continue to complain of pain is getting morphine on regular basis and it may be causing the low blood pressures. He is a sodium level is gradually improving. Getting 3% normal saline infusions and feeding follow-up sodium levels to prevent any rapid correction of the sodium. 06/10/2018-patient went for the biopsy today. He has a left axillary/chest wall metastasis. Biopsy was done without any complications and I spoke to Dr. Simmons he thinks is a necrotic tissue. Had a long discussion with the patie nt's daughter and they understood the poor prognosis the have a meeting with the oncologist Dr. Merida around 5 PM today and they are going to make a decision to go for palliative care are not. In the meantime the requested to continue the present management. Patient is still hypotensive despite getting normal saline at 150 cc/h. 06/11/2018-patient is less responsive and drowsy, and is not eating and drinking enough as per the nurse skilled nursing professional. When I try to talk to him he acknowledged that he is in pain. Thus the only response I got from his pain. His blood pressures blood are lower side with tachycardia. Systolic blood pressures in the 80s. Prognosis poor condition is critical. The biopsy report came back as metastatic carcinoma. Heme oncologist Dr. MERIDA spoke to the family recommended comfort care. 06/12/2018-patient is comfortably in the bed. He is on comfort care measures only. Family members at bedside. Overall prognosis is poor condition is critical. Reason For Visit: HYPONATREMIA Physical Exam Vital Signs: Temp Pulse Resp BP Pulse Ox 99.5 F 111 H 11 L 88/52 L 93 06/11/18 20:00 06/12/18 02:00 06/11/18 20:00 06/11/18 20:00 06/11/18 20:00 Intake & Output 06/11/18 06/12/18 06/13/18 06:59 06:59 06:59 Intake Total 4073 0 Output Total 535 100 Balance 3538 -100 Weight 70.1 kg General appearance: PRESENT: no acute distress Head exam: PRESENT: atraumatic Eye exam: PRESENT: PERRLA Mouth exam: PRESENT: moist Respiratory exam: PRESENT: other - Shallow respirations. Cardiovascular exam: PRESENT: tachycardia GI/Abdominal exam: PRESENT: soft, other - Sluggish bowel sounds. Neurological exam: PRESENT: other - Patient is responding by morning. IV Ativan and pain medications [id number] to be comfortable. Results Laboratory Results: 06/11/18 06:07 06/11/18 06:07 06/07/18 06/07/18 06/07/18 17:55 17:55 21:45 Creatine Kinase 150 CK-MB (CK-2) 4.49 Troponin I 0.018 0.018 06/08/18 02:50 Creatine Kinase 106 CK-MB (CK-2) Troponin I Impressions: Chest X-Ray 06/07/18 17:45 IMPRESSION: Essentially stable imaging appearance of the chest demonstrating multiple nodular densities bilaterally, most likely on the basis of metastatic disease. Head CT 06/07/18 19:30 IMPRESSION: No evidence of parenchymal mass or mass effect. Incidental finding of spheno-ethmoid sinusitis. EVIDENCE OF ACUTE STROKE: NO. Abdomen Ultrasound 06/07/18 21:02 IMPRESSION: Diffusely heterogeneous echotexture to the liver with multiple poorly defined masses consistent with metastases, also seen on prior CT. Sludge in the gallbladder lumen. Equivocal/trace of pericholecystic fluid. Small volume of ascites. Splenomegaly at 14 cm copyright 2010 [employer]- All Rights Reserved Head MRI 06/08/18 00:00 IMPRESSION: No metastases are present. Cannot exclude very limited white matter infarction in the left posterior frontal lobe. EVIDENCE OF ACUTE STROKE: NO. Renal Ultrasound 06/10/18 00:00 IMPRESSION: No hydronephrosis. Decompressed bladder. Assessment & Plan - Diagnosis (1) Metastatic cancer Is this a current diagnosis for this admission?: Yes Plan: 06/08/2018-patient has a CLL with widespread metastatic cancer. Consultation with oncology is requested. She is not on any chemo or radiation therapy at this moment. Because of the CLL extensive metastatic disease I am going to request for hospice consult. 06/09/2018 patient has history of CLL with metastasis to the liver. Elevated liver enzymes. But there is no obstructive evidence of obstruction. Patient is waiting for the biopsy. Hospice consult was placed oncology consult was also requested. MRI of the brain negative for metastases to the brain. 06/10/2018-patient has CLL with metastatic lesions in the liver associated with hepatosplenomegaly. He may have underlying liver cirrhosis. Massive left axil gene lymph node mass. Status post biopsy today. Dr. Simmons told him is an apparent necrotic tissue. Overall prognosis poor. Family is aware of the overall poor prognosis. Family is going to meet with Dr. Merida around 5 PM today to discuss further management. 06/11/2018-the biopsy from the left axilla came back as a metastatic carcinoma. Heme oncologist Dr. Merida spoke to the family members and recommended comfort care. I spoke to the patient's daughter Radha just a minute ago and she is waiting for the other family members to come in and she is going to let me know further plans. Meantime will he is going to be full code. Prognosis poor condition is critical. 06/12/2018 patient has CLL and biopsy from the left axillary lymph node shows metastatic metastatic melanoma. Patient is a not a candidate for aggressive therapy. And is on comfort care measures. (2) Liver failure, acute Qualifiers: Hepatic coma status: without hepatic coma Qualified Code(s): K72.00 - Acute and subacute hepatic failure without coma Is this a current diagnosis for this admission?: Yes Plan: 06/08/2018 on examination of the abdomen enlarged liver palpable. Probably se condary to metastasis. Patient is not in liver failure. no Signs of icterus. 06/09/2018-patient has elevated LFTs secondary to metastatic disease. Ultrasound of the abdomen was done and negative for acute cholecystitis. The ultrasound shows enlarged liver with poorly defined metastatic lesions. No signs of icterus. And is to continue the present management. 06/10/2018-patient has elevated LFTs-ultrasound of the abdomen was negative for acute cholecystitis but shows enlarged liver with metastatic lesions and he has also history of alcohol use probably underlying cirrhosis is present. His spleen was also enlarged. Plan is to continue the present management. 06/11/2018 patient's LFTs are going up. He has hepatosplenomegaly. He has underlying liver cirrhosis along with hepatic lesions. 06/12/2018 liver failure probably secondary to metastatic liver disease and underlying liver cirrhosis. (3) Hyponatremia Is this a current diagnosis for this admission?: Yes (4) Renal failure, acute Qualifiers: Acute renal failure type: unspecified Qualified Code(s): N17.9 - Acute kidney failure, unspecified Is this a current diagnosis for this admission?: Yes Plan: 06/08/2018 patient's admission creatinine is 2.01. It was improved to 1.36 with IV fluids. Acute renal failure may be secondary to poor oral intake. 06/09/2018-patient's admission creatinine is 2.0 and it was improved to 1.3 with IV fluids. We will continue to follow the patient regular basis. 06/10/2018 patient is on normal saline at 150 cc/h. Creatinine is worsened from 1.6-2.0. Nephrology team is on board. It can be due to CLL involving the kidneys. Going to order for the kidney ultrasound. 06/11/2018-the creatinine today is 1.9. Stable. He is off the IV fluids. Renal ultrasound is negative for hydronephrosis. 06/12/2018-acute renal failure may be secondary to hepatorenal syndrome. (5) Hyperkalemia Is this a current diagnosis for this admission?: Yes (6) Vision changes Is this a current diagnosis for this admission?: Yes (7) Lymphadenopathy, axillary Is this a current diagnosis for this admission?: Yes Plan: 06/09/2018 patient has axillary lymph node enlargement. Secondary to CLL. Oncology on board. 06/10/2018 patient has massive left axillary/chest wall metastasis status post biopsy today Dr. Simmons told me is a necrotic tissue. Overall prognosis poor. Condition is critical. Family is aware of the poor condition. 06/11/2018-the left axillary mass with metastasis to the anterior chest all status post biopsy yesterday and the report came back as metastatic carcinoma. We waiting for the family dictation. At that time he is going to be full code. Plan to the daughter that his blood pressures are low who is tachycardic he is this definitely change in his mental status she says she understood but she was told the family members to come in before taking a final decision about hospice. 06/12/2018-biopsy from the legs lt axillary lymph node indicate metastatic melanoma. And is under comfort care measures. - Time Time Spent with patient: 15-24 minutes Medications reviewed and adjusted accordingly: Yes Anticipated discharge: Hospice
--- NOTE | 2018-06-12 18:50 | Death Summary ---
Summary Date : 06/12/18 Time of :: 18:15 Autopsy: No Resuscitation Status: Comfort Measures Only - Final Diagnosis (1) Metastatic cancer Is this a current diagnosis for this admission?: Yes (2) Liver failure, acute Is this a current diagnosis for this admission?: Yes (3) Hyponatremia Is this a current diagnosis for this admission?: Yes (4) Renal failure, acute Is this a current diagnosis for this admission?: Yes (5) Hyperkalemia Is this a current diagnosis for this admission?: Yes (6) Vision changes Is this a current diagnosis for this admission?: Yes (7) Lymphadenopathy, axillary Is this a current diagnosis for this admission?: Yes Hospital Course:: CARRILLO GELLER is a 63 year old male with a past medical history of tobacco, CLL and newly diagnosed widespread metastatic disease of the chest and abdomen 10 days ago. Patient saw Dr. Oates, initially was placed on Ultram with plans to follow-up after [place]. 3 days ago the patient and sustained several falls without significant injury but has subsequently developed left arm edema and right eyelid closure. In the emergency room he is found to have an odd affect, generalized weakness, severe hyponatremia, acute renal failure, and cholestatic picture of LFTs. Ultrasound does not reveal biliary obstruction with a normal caliber common bile duct, head CT does not reveal acute stroke. He is started on normal saline and referred to the hospitalist for admission. Patient admits to poor p.o. intake with anorexia. 06/12/2018 this 63-year-old male admitted for history of frequent falls and difficulty in seeing through his right eye in association with generalized weakness and in the emergency room found to have severe hyponatremia acute renal failure include cholestatic picture of LFTs. His prognosis condition at the time of admission is poor. Ultrasound of the liver was done at the time of admission and acute cholecystitis was ruled out. The head the head and MRI of the brain was done no metastatic lesion was found. CT abdomen and pelvis indicate metastatic lesion to the liver associated with hepatosplenomegaly. Rectal examination found to have a large left axillary mass. The oncology consult was requested and the recommendation is to biopsy of the mass in the left axilla the biopsy report came back as metastatic melanoma. Nephrology consult was also requested during the hospital stay for hyponatremia. And he was given as needed 3% normal saline. During the course of the hospital stay I am in touch with the family members and explained to them the poor prognosis. Family waiting for the biopsy report before making him DNR/DNI and put him on comfort care measures. Understood the poor prognosis. As per the family requesting was placed on comfort care measures since yesterday. The active measures were discontinued. Peacefully today at 1815 p.m. certificate was signed. But is going to be released to the home.
[2018-06-13 06:11] LABS: HEPATITIS C VIRUS ANTIBODY <0.1 s/co ratio (0.0-0.9)
== END 2018-06-12 20:51 | DRG 840 ==
LOC: ER 16:26 → EH 06-08 00:42 → 3S 06-08 19:04
PROVIDERS: ADMIT Internal Medicine; ATTEND Internal Medicine
PROC: 0WB80ZX Excision of Chest Wall, Open Approach, Diagnostic (ICD-10-PCS; principal; 2018-06-10 10:00)
DX: C77.3 Secondary and unspecified malignant neoplasm of axilla and upper limb lymph nodes (principal); K72.00 Acute and subacute hepatic failure without coma; C78.7 Secondary malignant neoplasm of liver and intrahepatic bile duct; C91.10 Chronic lymphocytic leukemia of B-cell type not having achieved remission; C78.00 Secondary malignant neoplasm of unspecified lung; N17.9 Acute kidney failure, unspecified; E87.1 Hypo-osmolality and hyponatremia; C80.1 Malignant (primary) neoplasm, unspecified; I95.2 Hypotension due to drugs; E87.5 Hyperkalemia; R16.2 Hepatomegaly with splenomegaly, not elsewhere classified; R59.1 Generalized enlarged lymph nodes; H54.7 Unspecified visual loss; R29.810 Facial weakness; R47.81 Slurred speech; R53.1 Weakness; F17.210 Nicotine dependence, cigarettes, uncomplicated; T50.7X5A Adverse effect of analeptics and opioid receptor antagonists, initial encounter; Y92.230 Patient room in hospital as the place of occurrence of the external cause
CPT/HCPCS: 00400; 36415; 51702; 70450; 70551; 71045; 76705; 76775; 80048; 80053; 80074; 80076; 81001; 82140; 82550; 82553; 82962; 83690; 83735; 83930; 83935; 84100; 84132; 84300; 84443; 84484; 85025; 85610; 85730; 87040; 88305; 88341; 88342; 93005; 93010; 96361; 96365; 96375; 99291; 99292; C1758; J0610; J0696; J1170; J1644; J1815; J2060; J2250; J2270; J2704; J3010; J3490; J7030